=== PATIENT | female | born 2000 | race African-American/Black ===

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

== ENCOUNTER 2024-07-03 06:13 | Inpatient (IN) ==
--- NOTE | 2024-06-26 12:34 | Anesthesiology Consultation ---
Date of Service June 26, 2024 Assessment & Plan (1) Encounter for pre-operative examination: - cardiology office visit 03/19/24 [facility]: "...telemedicine...hypertension and risk evaluation during ...feels well and progressing as expected...pre- eclampsia is not present and BPs have been in normotensive range...would recommend getting updated echocardiogram...if BP rises to > 140 mmHg would consider re-introduction of BP therapy w/ labetalol..." - Per youth care worker on 06/26/24: No known infectious disease contacts, current infectious disease symptoms in past 10 days or COVID positive test result in the past 30 days. Chart Review Chart Review: entry level buyer initiated History Surgery Operation Date: 07/03/24 08:00 Proposed Procedures p Section in LD - Nohelia Jean Baptiste MD Height/Weight Height: 5 ft 8.5 in Weight: 131.088 kg Allergies Allergy/AdvReac Type Severity Reaction Status Date / Time No Known Allergies Allergy Mild Verified 06/26/24 11:11 Medications Home Medications Medication Instructions Recorded Confirmed Last Taken albuterol sulfate 90 mcg/actuation 1 inh inhalation QID PRN sob 06/26/24 06/26/24 Unknown aerosol inhaler vits no.130-ferrous fum 1 tab PO DAILY 06/26/24 06/26/24 Unknown 27 mg iron-folic acid 800 mcg tablet ( Vitamin) Past Medical History Medical History (Updated 06/26/24 @ 12:26 by Catalina Mejias PA-C) Asthma well controlled, rarely uses albuterol History of hypertension as a teen - no current issues, monitors with PCP. hx of taking labetalol (stopped due to ) no current blood pressure medications. follows [facility] Hx of syncope treated at [facility] Emergency Room in 12/2023 d/t syncope - pt thinks it was dehydration, unsure of details. possibly related to (unknown she was until sometime in December or January) - no recent issues with syncope. Past Family History Family History Other No family history of adverse response to anesthesia Past Surgical History Surgical History S/P ACL repair (2019) right Social History Smoking Status: Former smoker Do You Dip or Chew Tobacco: No Smoking End Date: 12/2023 Hx Alcohol Use: No Hx Substance Use: No substance use type: does not use Testing Electrocardiogram Date: 12/09/23 NSR with sinus arrhythmia, rate 84 bpm Chest X-Ray Date: 01/28/24 *1 view* No acute cardiopulmonary findings. Echocardiogram Date: 05/22/24 EF 60-64% Moderate cLVH Normal LV wall motion Mild mitral regurgitation Mild tricuspid regurgitation
[~2024-07-03 06:13] MED LIST: SODIUM CHLORIDE 0.9% 1,000 ML IV SCH
[2024-07-03] MEDS: ACETAMINOPHEN 500 MG TAB PO SCH (06:48)
[2024-07-03] MEDS: LACTATED RINGER'S 1,000 ML IV SCH ×2 (06:48→11:59)
[2024-07-03 07:03] LABS: Hematocrit (blood only) 35.6 % (37.0-47.0); Hemoglobin 12.3 g/dl (12.0-16.0); Mean Corpuscular Hemoglobin 29.4 pg (25.0-34.0); Mean Corpuscular Hgb Conc 34.6 g/dL (32.0-36.0); Mean Platelet Volume 9.9 fL (9.4-12.4); Platelet Count 219 K/uL (130-400); RDW Coefficient of Variation 13.5 % (11.5-14.5); RDW Standard Deviation 42.4 fL (36.4-46.3); Red Blood Count 4.19 M/uL (4.20-5.40); White Blood Count 12.81 K/ul (4.8-10.8)
[2024-07-03 07:22] LABS: Amphetamines+Metham, Urine Neg (Neg); Barbiturates, Urine Neg (Neg); Benzodiazepine, Urine Neg (Neg); Cocaine, Urine Neg (Neg); Fentanyl, Urine Neg (Neg); MDMA (Ecstacy), Urine Neg (Neg); Marijuana, Urine Neg (Neg); Methadone, Urine Neg (Neg); Opiate, Urine Neg (Neg); Phencyclidine, Urine Neg (Neg)
[2024-07-03] MEDS ORDERED: MoRPHine SULFATE 2 MG/ML CARP IV PRN (07:51)
[2024-07-03] MEDS ORDERED: HYDROmorphone INJ 0.5 MG/0.5 ML SYR IV PRN (07:51)
[2024-07-03] MEDS ORDERED: MEPERIDINE HCL 25 MG/ML CARP/VIAL IV PRN (07:51)
[2024-07-03] MEDS ORDERED: MoRPHine SULFATE PF 1 MG/ML 10 ML AMP/VIAL INT SPINAL ONE (07:51)
[2024-07-03] MEDS ORDERED: NALOXONE HCL 0.08 MG in SYRINGE 1.8 ML IV PRN (07:51)
[2024-07-03] MEDS ORDERED: ONDANSETRON INJ 2 MG/ML 2 ML VIAL IV PRN (07:51)
[2024-07-03] MEDS ORDERED: NALOXONE HCL 1 MG in SODIUM CHLORIDE 0.9% 1,000 ML IV PRN (07:51)
[2024-07-03] MEDS ORDERED: oxyCODONE HCL IR 5 MG TAB (IMMEDIATE RELEASE) PO PRN (07:51)
[2024-07-03] MEDS ORDERED: ePHEDrine sulfate 50 MG/ML AMP IV PRN (07:51)
[2024-07-03] MEDS ORDERED: NALBUPHINE HCL INJ 10 MG/ML AMP IV PRN (07:51)
[2024-07-03] MEDS ORDERED: NALOXONE HCL 0.4 MG/1 ML VIAL/CARP IV PRN (07:51)
[2024-07-03] MEDS ORDERED: PROMETHAZINE 6.25 MG/50.25 ML BAG IV PRN (07:51)
[2024-07-03] MEDS: CITRIC ACID/SODIUM CITRATE 15 ML UDC PO SCH (07:55)
[2024-07-03] MEDS: ceFAZolin 3,000 MG/72.5 ML BAG IV SCH (07:57)
--- NOTE | 2024-07-03 07:57 | History & Physical Bridge Note ---
Date of Service July 03, 2024 History & Physical Bridge Note I have examined the patient, reviewed the History & Physical and in the interval since the performance of the History & Physical I have noted the following changes of clinical significance: no changes noted Bed side US: Breech Signed and informed consent for Primary Ceserean delivery
[2024-07-03] MEDS ORDERED: OXYTOCIN 10 UNITS/ML VIAL ONE (07:59)
[2024-07-03] MEDS ORDERED: ONDANSETRON INJ 2 MG/ML 2 ML VIAL ONE (07:59)
[2024-07-03] MEDS ORDERED: NO NARCOTICS OR SEDATIVES SCH (08:00)
[2024-07-03] MEDS ORDERED: DC INTRASPINAL MORPHINE SCH (08:00)
[2024-07-03] MEDS ORDERED: MoRPHine SULFATE PF 1 MG/ML 10 ML AMP/VIAL ONE (08:00)
[2024-07-03] MEDS ORDERED: CALCIUM CARBONATE 500 MG CHEWABLE TAB PO PRN (09:11)
[2024-07-03] MEDS ORDERED: PROMETHAZINE 12.5 MG/50.5 ML BAG IV PRN (09:11)
[2024-07-03] MEDS ORDERED: HYDROCORTISONE ACETATE 25 MG SUPP PR PRN (09:11)
[2024-07-03] MEDS ORDERED: DIPHTHER/TETAN/PERTUS Vaccine (Tdap, Adol/Adult) 0.5mL IM ONE (09:11)
[2024-07-03] MEDS ORDERED: SENNA 8.6 MG TAB PO PRN (09:11)
[2024-07-03] MEDS ORDERED: BENZOCAINE 20% SPRY 85 APPLN/85 GM CAN EXT PRN (09:11)
[2024-07-03] MEDS ORDERED: diphenhydrAMINE 50 MG/ML VIAL IV PRN (09:11)
[2024-07-03] MEDS ORDERED: MEASLES, MUMPS & RUBELLA VIRUS VACCINE (MMR) 0.5ML VIAL SQ ONE (09:11)
[2024-07-03] MEDS ORDERED: PHENYLEPHRINE HCL 25 MG/250 ML NSS IV ONE (09:13)
[2024-07-03] MEDS ORDERED: LACTATED RINGER'S 1,000 ML IV SCH (09:15)
--- NOTE | 2024-07-03 09:21 | Operative Report ---
Post Operative Report Pre & Post Diagnosis Operation Date: 07/03/24 08:00 Pre-Op Diagnosis: 1.Breech at term Post-Op Diagnosis: Same as pre operative. I identified the patient and participated in the time-out.: Yes Procedure Operation Date: 07/03/24 08:00 Actual Procedures p Section in [facility] on 07/03/24 @ 0832 - Nohelia Jean Baptiste MD Surgeon Nohelia Jean Baptiste MD [employer] LINDA Iyer Quantitative Blood Loss (QBL) 457 Findings Consistent with Post-Op Diagnosis Baby was a viable female infant delivered in footling breech presentation at 0 8:32 AM, Apgars 8/9, weight is 337 0 g. Maternal findings, normal uterus, fallopian tubes and ovaries. Specimens PLACENTA Drains Santamaria 175 ml Anesthesia Type Spinal Complications none Disposition Accompanied Patient To Recovery: Yes Indications Patient is a 23-year-old G1, P0 at 39 weeks and 4 days of gestation who was scheduled for primary for breech presentation at term. Bedside ultrasound was performed by myself before surgery and baby was found to be footling breech presentation. She understood the risks and benefits of C- section and signed an informed consent. Description of Procedure Patient was taken to operating room where a spinal anesthesia was given without difficulty. She was placed in dorsal supine position with a leftward tilt. She was prepared and draped in usual sterile fashion. A financial skin incision was made and carried through to the underlying layer of fascia with the Bovie. Fascia was incised in the midline and incision was extended laterally with the help of Terrazas scissors. Then the upper aspect of the fascial incision was grasped with 2 Abby clamps elevated the underlying rectus muscles were dissected off sharply with Terrazas scissors. Same thing was done on the lower incision. Then the muscles were in the midline, peritoneum was identified grasped with 2 pickups and entered sharply with Metzenbaum scissors. Peritoneal incision was extended superior and inferiorly with good visualization of the bladder. The bladder blade was inserted. Vesicouterine peritoneum was identified, grasped with pickups and entered sharply with Metzenbaum scissors, bladder flap was created digitally and bladder blade was reinserted. Uterus was incised in transverse fashion, incision was extended laterally , membranes were ruptured and clear fluid was obtained. Baby feet and legs were delivered followed by buttocks, body and arms in flexion position and then head without difficulty. Nuchal cordx1 reduced. Mouth and nose were suctioned there was dried on the field he was vigorously crying and moving. The cord was clamped times and cut at 1 minute delay and then the was handed off to the pediatric team. Then the placenta was delivered manually as intact and complete. Uterus was kept inside of pelvis and cleared of all clots and debris. Uterine incision was repaired with 0 Vicryl in a running locked fashion, second umbricating layer was placed with the same suture in running locked fashion. Excellent hemostasis achieved. Pelvis was irrigated with warm normal saline and suctioned. Incision was checked to be hemostatic again. Parietal peritoneum was reapproximated with 3-0 Vicryl in a running fashion and the muscles were reapproximated in the same suture in a running fashion. All of the fascia and rectus muscles were hemostatic. Rectus fascia was reapproximated with 0 Vicryl in continuous fashion. Subcuticular fat tissue was brought together with 2-0 Vicryl in a running fashion, skin was closed with 4-0 Monocryl in a subcuticular cuticular fashion. The mom and baby tolerated procedure well. Sponge needle instrument count was correct x3. No complications happened, I was present during whole procedure. She was given 3 gr of Cefazolin before surgery. My veterinarian assistant was needed for retraction, hemostasis and aid during delivery of infant I attest to the content of the Intraoperative Record and any orders documented therein. Any exceptions are noted below.
[2024-07-03] MEDS ORDERED: GELATIN SPONGE SZ 100 ONE (09:28)
[2024-07-03] MEDS: KETOROLAC 30 MG/ML VIAL IV SCH ×2 (09:45→16:17)
[2024-07-03] MEDS ORDERED: SODIUM CHLORIDE 0.9% 100 ML IV PRN (11:55)
[2024-07-03] MEDS ORDERED: Nursing to Pharmacy Communication SCH (12:15)
--- OUTSIDE RECORDS SUMMARY | 2024-07-03 12:30 | External Medical Summary | Summary of Care ---
Author Name Unknown Organization [facility] Address [address] [place] [address] Phone [phone] Care Team Providers Care Metalizer Name Role Phone Carly Gatica MD Primary Care Provid er Encounter Details Date Type Department Care Team (Late Contact Info) Description 06/28/2024 3:00 PM EDT Office Visit [facility] Care [facility] Nikky Mensah [address] [place] [address] [address] [place] [address] Britta Moore, DO [address] [place] [address] Obesity in , antepartum*; Ultrasound for screening for growth restriction; 38 weeks gestation of Allergies No known active allergiesdocumented as of this encounter (statuses as of 06/28/2024) Medications Proventil HFA 108 (90 Base) MCG/ACT Inhalation Aerosol SolutionIndicatio ns:Acute non-recurrent maxillary sinusitis Inhale 2 Puffs by mouth every 4 hours as needed for Wheezing. 18 g 3 4 Active Plus 27-1 MG Oral TabletIndications :Supervision of normal first , antepartum Take 1 Tablet by mouth in the morning. 100 Tablet 3 4 Active Blood Pressure CuffIndications:H istory of hypertension For monitoring blood pressure 1 Each 4 Active Breast Pump Use as directed 1 Each 5 Active documented as of this encounter (statuses as of 06/28/2024) Active Problems Problem Noted Date Diagnosed Date Carrier of group B Streptococcus 06/13/2024 Mild intermittent asthma with exacerbation 03/12 Assessment & Plan (03/12/2024 2:53 PM EST): CONSIDERATIONS: Asthma symptoms may improve, worsen or remain unchanged in severity in . Asthma is generally managed the same in as in the non- patient, as asthma-control medications are considered safe in . If asthma is well-controlled with medications prior to , it is recommended to continue the same medication regimen during . A patient should seek medical care immediately if an asthma flare does not respond to therapy. Mild and well-controlled moderate asthma can be associated with excellent maternal and outcomes. Severe and poorly controlled asthma may be associated with increased morbidity and mortality. Asthma management includes monitoring of lung function with pulmonary function testing (when indicated), avoidance of triggers (such as tobacco smoke, mold, dust mite exposure, animal dander and cockroaches), and a step-care approach to pharmacologic therapy based on the severity of the patient's asthma. RECOMMENDATIONS: Inhaled corticosteroids are the mainstay of therapy for all patients except those with intermittent asthma. If patients are routinely requiring rescue inhaler (such as albuterol, Ventolin, ProAir, Atrovent, or Proventil) use more than twice weekly, we recommend adding a low-dose inhaled corticosteroid. [Pulmicort (budesonide) is preferred to use in .] If patients are routinely requiring rescue inhaler use daily, we recommend adding a combined low-dose inhaled corticosteroid/long-acting beta-agonist [such as Advair (fluticasone/salmeterol) or Symbicort (budesonide/formoterol)] or a medium dose inhaled corticosteroid. Patient should discuss these treatment options with her primary OB provider or PCP. Typically, patients do not need stress dose steroids as long as they continue their usual dose perioperatively (or during labor) and do not have primary renal failure or other problems with the pituitary axis. Medications such as prostaglandin F2a (including Hemabate), ergonovine, and indomethacin (in patients who are aspirin allergic) should be used with caution. Patients with moderate or severe persistent asthma should have Maternal- Medicine ultrasound for anatomy at 19-20 weeks. surveillance with growth ultrasounds and non-stress tests should be considered starting at 32 weeks. Food insecurity 03/11/2024 Overview: Per [facility] Protocol High-risk 03/07/2024 Obesity in , antepartum 03/07/2024 Overview (03/07/2024): Class 2 obese: Pre-gravid BMI 35.28 Assessment & Plan (04/02/2024 11:26 AM EST): I reviewed the ultrasound with her. The anatomy that was visualized appears unremarkable and the overall estimated weight is consistent with the 25th percentile for the gestational age. The amniotic fluid volume is normal at 13 cm and the fetus is in the vertex presentation. Assessment & Plan (03/12/2024 2:52 PM EST): CONSIDERATIONS: Discussed obstetrical risks associated with class II obesity (pre- BMI of 35 to 39.9) Reviewed that the accuracy of ultrasound at diagnosing anomalies is significantly decreased for women with an increased BMI. RECOMMENDATIONS: Recommend restricting weight gain during to 11-20 pounds. Patient should be referred for a nutrition consult. Recommend evaluation for signs and symptoms (snoring, excessive daytime sleepiness witnessed apnea or unexplained hypoxia) of obstructive sleep apnea. If any of these are present, referral to Sleep Medicine specialist for further evaluation should be considered. Recommend performing gestational diabetes mellitus screen now (if not performed at first visit) and repeat again at 26-28 weeks if early screen is normal. Recommend Maternal- Medicine ultrasound for anatomy at 20 weeks and for growth every 4 weeks thereafter. For patients with Class 2 obesity, we recommend weekly surveillance starting at 37 weeks. History of hypertension 03/07/2024 Overview (03/07/2024): No on medication at [facility] Marijuana use during 03/07/2024 Overview (03/12/2024): Patient reports use of Marijuana. She is trying to discontinue use Assessment & Plan (03/12/2024 2:59 PM EST): CONSIDERATIONS: Chemicals found in marijuana, such as tetrahydrocannabinol (THC), are distributed to the brain and fat and cross the placenta. THC also appears in breast milk. In utero exposure is associated with short and long-term morbidity. A positive screen result is reported to [facility]. RECOMMENDATIONS: Abstain from marijuana use in and while ; avoid secondhand exposure. Discontinue use of marijuana for medicinal purposes in favor of an alternative therapy for which there are better -specific safety data. Suicidal thoughts 04/15/2022 Moderate episode of recurrent major depressive d isorder 07/05/2021 IRAJ (generalized anxiety disorder) 07/05/2021 Overview (03/12/2024): Patient currently stable in terms of her mood and denies any thoughts of self harm. Has support from her siblings. Assessment & Plan (03/12/2024 2:56 PM EST): CONSIDERATIONS: Untreated maternal anxiety and/or depression may be associated with an increased risk of multiple poor obstetrical outcomes including miscarriages, low weight, and delivery. Women with a history of anxiety or depression are at risk for recurrence both during and/or the period. Studies of first-trimester SSRI exposure do not demonstrate consistent data to support an increased risk for structural malformations. Anti-anxiety or depression medications have been associated with transient effects (withdrawal syndrome). RECOMMENDATIONS: Mental illness can and should be treated during when the benefits of treatment outweigh potential risks. Referral to behavioral health services as clinically indicated. Hypertension goal BP (blood pressure) < 140/90 0 11/23/2020 Hypertensive left ventricula r hypertrophy, without heart failure 11/23/2020 Overview (03/12/2024): Overview Patient with chronic hypertension in the context of morbid obesity. AT 18 she was diagnosed and had echocardiogram showing borederline LVH. Corky has since lost weight, and her BPs have become normal/mildy elevated without medications. No cardiac symptoms. No recent cardiology evaluation. Last echo 08/19/2020 Interpretation Summary There is borderline concentric left ventricular hypertrophy. The left ventricular systolic function is qualitatively normal . There is not a coarctation of the aorta. Not currently on HTN meds at [facility] Latest EKG Assessment & Plan (05/03/2024 3:26 PM EST): Echocardiogram ordered 03/13 but not yet completed. Appears to be scheduled 05/09/24. Assessment & Plan (03/12/2024 1:55 PM EST): Discussion Patient was counseled on the diagnosis of hypertension and the chronic health effects of untreated disease. She was encouraged to maintain the lifestyle changes that have led to her weight loss and improvement of her BP and overall health The risk of from the borderline LVH is not expected to be much higher than baseline risk for any patient. She has a CARPREG II risk score of zero as she has no prior cardiac events and has required no cardiac interventions. The risk of a primary cardiac event is 5% in this scenario. Recommendations We recommend an updated evaluation by cardiology team for specific recommendations and a new echocardiogram Baseline Preeclampsia labs and BNP levels Patient was offered low dose Aspirin given her risk factors of obesity, chronic hypertension and primiparity. Cardiac Seek immediate medical attention in the event of cardiac symptomatology, such as worsening respiratory distress on exertion, chest pain, palpitations, or syncope. Heart Healthy diet with <<2,000 mg of sodium intake daily. Adequate hydration. Maintain previous level of physical activity; avoid lifting weights >10 lbs. Avoid stimulants (tobacco and nicotine vaping products, excessive caffeine, cocaine, methamphetamine). Optimize hemoglobin; encourage heme iron intake through lean red meat consumption as well as oral ferrous sulfate therapy; consider Venofer infusions. Maternal Medicine MFM anatomy ultrasound at 20 weeks. Serial MFM growth scans as indicated BMI 45.0-49.9, adult 09/15/2020 Overview: Per Obesity protocol Morbid obesity due to excess calories 08/07/2006 Overview (06/25/2009): Per Obesity Taxonomy Assessment & Plan (06/07/2024 8:53 AM EST): I reviewed the US. The EFW is c/w the 47%tile for the gestational age and the anatomy that was visualized appears unremarkable, with the exception of the cystic structure in the midline. It measures 1.1 cm and is smooth walled. There is no blood flow. This has been seen on prior ultrasounds. The BETSEY is normal at 17 cm and the fetus is in the breech presentation. Estimated Date of Delivery Comme nts Yes 07/08/2024 Based on last me nstrual period of 10/02/2023 documented as of this encounter (statuses as of 06/28/2024) Resolved Problems Problem Noted Date Diagnosed Date Resolved Date 23 weeks gestation of 03/11/2024 04/24/2024 Overview (03/12/2024): Late to care Recurrent major depressive d isorder, in full remission 11/23/2020 07/05/2021 Abnormal weight gain 2010 018 Asthma with severity to be determined 09/24/2009 04/23/2015 Overview (07/13/2015): Per Asthma Taxonomy ICD-10 update of inactive term Body mass index (BMI) of 120 % to less than 140% of 95th percentile for age in pediatric patient 06/25/2009 07/05/2021 Overview (01/02/2024): Per Obesity Taxonomy ICD-10 update of inactive term Asthma, allergic 04/16/2009 09/24/2009 documented as of this encounter (statuses as of 06/28/2024) Immunizations Name Administration Dates Next Due DTaP Dipth/Tet/Acell Pertussis (Infanrix), Peds 07/07/2008 H1N1 2009 Influenza, IM 04/16/2009 HPV Vaccine, 9-Valent 11/30/2015,04/23/2015 Hepatitis A, Ped/Adol., 18 year and below, 2-Dos e 12/24/2012 IPV - Polio Virus Vaccine (Inact) 07/07/2008 MMR - Measles/Mumps/Rubella Vaccine 07/07/2008 Meningococcal Conjugate Vaccine (Menactra/Menveo ) 04/23/2015 Meningococcal MCV4O Conjugate Vaccine (Menveo) 1 05/13/2019 Seasonal Influenza Vac., MDV, IM, 0.5 mL (Fluzon e) 12/24/2012,04/16/2009 Seasonal Influenza, PF, 6 M & above, IM , (FluLaval or Fluzone) 04/15/2022,03/12/2020 Seasonal Influenza, Quad, Nasal (Flumist) 2015 Seasonal Influenza, Trivalent, (IIV3), PF, (Fluz one) 03/07/2024 TDAP (age 10 and older)(Boostrix) 04/23/2015 TDAP, Age 7 and older, IM (Adacel) 04/24/2024 documented as of this encounter Social History Tobacco Use Types Packs/Day Years Used Date Smoking Tobacco: Never Smokeless Tobacco: Never Alcohol Use Standard Drinks/Week Comments No 0 (1 standard drink = 0.6 oz pur e alcohol) PHQ-2 Answer Date Recorded PHQ Adult Total Score 18 07/15/2022 Hunger Vital Sign Answer Date Recorded Within the past 12 months, y ou worried that your food would run out before you got the money to buy more. Often true Within the past 12 months, t he food you bought just didn't last and you didn't have money to get more. Sometimes true Rodeo Depression Scale Answer Date Recorded Rodeo Depression Scale Total 12 06/11/2024 The thought of harming myself has occurred to me . Never 06/11/2024 Childcare Answer Date Recorded Do you feel overwhelmed with taking care of a child, family member or friend? No 02/20/2024 Does your family need help f inding childcare? (Household - for ages 0-17 years) Not on file 02/20/2024 Clothing Answer Date Recorded Have you been unable to get clothing when it was really needed? No 02/20/2024 Is your family able to get c lothes or diapers when needed? (Household - for ages 0-17 years) Not on file 02/20/2024 Personal Safety Answer Date Recorded Do you feel unsafe or have concerns for your saf ety? No 02/20/2024 Do you have concerns for you r family's safety? (Household - for ages 0-17 years) Not on file 02/20/2024 Utilities Answer Date Recorded Do you have trouble paying y our heating, water, or electric bill? No 02/20/2024 Is your family able to pay t he heat, water, or electric bill? (Household - for ages 0-17 years) Not on file 02/20/2024 Does your family have access to good internet? (Household - for ages 0-17 years) Not on file 02/20/2024 Employment Status Answer Date Recorded Are you unemployed or without regular income? No 02/20/2024 Does the household have a re gular source of income? (Household - for ages 0-17 years) Not on file 02/20/2024 Social Connections Answer Date Recorded How often do you feel lonely or isolated from th ose around you? Always 02/20/2024 Financial Resource Strain Answer Date R ecorded Do you have any trouble payi ng for your medications, or do you think you might in the future? No 02/20/2024 Does your family have troubl e paying for medicine? (Household - for ages 0-17 years) Not on file 02/20/2024 Transportation Needs Answer Date Record ed Do you have trouble getting a ride to medical visits or work? (Adult - for ages 18 years and over) Not on file 02/20/2024 Does your family have a hard time getting a ride to doctors visits? (Household - for ages 0-17 years) Not on file 02/20/2024 Has lack of transportation k ept you from medical appointments, meetings, work, or from getting things needed for daily living? Check all that apply. Yes, it has kept me from medical appointments 02/20/2024 Do you (or your family) have trouble finding or paying for a ride (transportation)? (Household - for ages 0-17 years) Not on file 02/20/2024 Housing Stability Answer Date Recorded Do you currently live in a s helter or have no steady place to sleep at night? Yes 02/20/2024 Do you think you are at risk of becoming homeless? (Adult - for ages 18 years and over) Not on file 02/20/2024 Does your family worry about paying for your home or becoming homeless? (Household - for ages 0-17 years) Not on file 1 04/21/2023 Are you homeless or worried that you might be in the future? Yes 02/20/2024 Are you (or your family) geovanna eless or worried that you might be in the future? (Household - for ages 0-17 years) Not on file Food Insecurity Answer Date Recorded Do you need food for this week? Yes 02/20/2024 Are you able to get enough f ood for your family? (Household - for ages 0-17 years) Not on file 02/20/2024 Does your family need food t his week? (Household - for ages 0-17 years) Not on file 02/20/2024 Do you always have enough fo od for your family? (Household - for ages 0-17 years) Not on file 02/20/2024 Food Insecurity Answer Date Recorded Within the past 12 months, y ou worried that your food would run out before you got the money to buy more. Often true Within the past 12 months, t he food you bought just didn't last and you didn't have money to get more. Sometimes true Do you need food for this week? 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 Normal growth with EFW 3502 g at 63%ile. Normal BETSEY at 14.5 cm. Breech presentation. I reviewed the ultrasound images. Gerard was given the opportunity to meet with me if she had anyquestions. Please refer to the ultrasound report for additional details about today's ultrasound examination. RECOMMENDATIONS: Follow up with MFM for ultrasound as clinically indicated. See formal MFM consultation note. Thank you for allowing us to participate in the care of this patient. Please call with any questions. Britta Moore DO 06/28/2024 3:46 PM documented in this encounter Plan of Treatment Upcoming Encounters Date Type Department Care Team (Late st Contact Info) Description 07/12/2024 11:00 AM EDT Office Visit Gynecology/Obstetrics [facility] [address] [place] [address] Poornima Freeman CRNP [address] [place] [phone] 08/19/2024 6:00 PM EDT Office Visit [facility]una [facility] [address] [phone] Carly Gatica MD [address] [place] [address] Health Maintenance Due Date Last Done Comments Meningitis B Vaccine (Bexsero/Trumemba) (1 of 2 - Standard) 2018 Pneumococcal Vaccine: Pediat rics (0 to 5 Years) and At-Risk Patients (6 to 18 Years and 19+ Years) (1 of 2 - PCV) 2021 Depression Monitoring 07/16/2023 07/15/2022 COVID-19 Vaccine ( - 2023-2 5 season) 2023 Yearly Wellness Visit 10/29/2024 10/30/2023 , 07/05/2021, 03/12/2020, Additional history exists GFR 03/07/2025 03/07/2024, 08/02, 04/15/2022, Additional history exists Gonorrhea / Chlamydia Screen 03/07/202508/2023, 10/30/2023, 12/21/2020, Additional history exists Pap Smear 10/29/2026 10/30/2023 DTap/Tdap Vaccines (7 - Td o r Tdap) 04/24/2034 04/24/2024, 04/23/2015, 07/07/2008, Additional history exists Hepatitis B Vaccine Completed 03/06/2003, 2002, 2002 HPV (Gardasil) Vaccine Completed 11/30/2015, 2015 Lipid Panel Completed 03/13/2018, 10/09/2014 MENINGOCOCCAL (MENACTRA/MENVEO) Completed 03/12/2020, 03/12/2020, 04/23/2015 Albumin/Creatinine Ratio Discontinued 024, 04/15/2022, 07/05/2021 Influenza Vaccine (FLU shot) Completed 08/2023, 04/15/2022, 03/12/2020, Additional history exists documented as of this encounter Goals Goal Patient Goal Type Associated Problems Recent Progress Patient-Stated? Author Reminders Care Plan OB Reminders No Mychart, Provider documented as of this encounter Medical Devices Implanted Type Area Still Operator Device Identifier Shelf Expiration Date Model / Serial / Lot Btb Tightrope - [id number] Implanted:Qty: 1 on 11/12/2019 by Christopher Brennan, DO at [facility] Right: Knee [employer] 01/01/2024 [id number] / / [id number] Tightrope Abs Implant, Open - [id number] Implanted:Qty: 1 on 11/12/2019 by Christopher Brennan, DO at OR [facility] Right: Knee [employer] 01/01/2024 [id number]-[id number] / / [id number] 7.5-10.5mm Graftlink Allograft, Frozen Graft Implanted:Qty: 1 on 11/12/2019 by Christopher Brennan DO at OR [facility] Right: Knee [employer] [id number] 09/01/2022 [facility] / [id number] / LOT NA Tightrope Abs Button Rnd 11mm - [id number] Implanted:Qty: 1 on 11/12/2019 by Christopher Brennan, at OR [facility] Right: Knee [employer] 08/31/2024 [id number] / / [id number] documented as of this encounter Visit Diagnoses Diagnosis Obesity in , antepartum- Primary Obesity complicating , childbirth, or the puerperium, antepartum condition or complication Marijuana use during Hypertensive left ventricular hypertrophy, without heart failure Mild intermittent asthma with exacerbation Unspecified asthma, with exacerbation IRAJ (generalized anxiety disorder) Generalized anxiety disorder 23 weeks gestation of state, incidental Morbid obesity due to excess calories (HCC)- Primary BMI 45.0-49.9, adult (HCC) Body Mass Index 45.0-49.9, adult Obesity in , antepartum Obesity complicating , childbirth, or the puerperium, antepartum condition or complication Obesity in , antepartum- Primary Obesity complicating , childbirth, or the puerperium, antepartum condition or complication Hypertensive left ventricular hypertrophy, without heart failure Ultrasound for screening for growth restriction screening for growth retardation using ultrasonics 30 weeks gestation of state, incidental Morbid obesity due to excess calories (HCC)- Primary Hypertensive left ventricular hypertrophy, without heart failure Hypertension goal BP (blood pressure) < 140/90 Unspecified essential hypertension Obesity in , antepartum Obesity complicating , childbirth, or the puerperium, antepartum condition or complication Obesity in , antepartum- Primary Obesity complicating , childbirth, or the puerperium, antepartum condition or complication Ultrasound for screening for growth restriction screening for growth retardation using ultrasonics 38 weeks gestation of state, incidental documented in this encounter Additional Health Concerns Active Problems Noted Date Diagnosed Date OB Reminders 03/18/2024 documented as of this encounter Care Teams Metalizer Relationship Specialty Start Date End Date Carly Gatica MD PCP - General Family Medicine 11/23/20 documented as of this encounter
--- OUTSIDE RECORDS SUMMARY | 2024-07-03 12:30 | External Medical Summary | Summary of Care ---
Author Name Unknown Organization [facility] Address [address] [address] Phone [phone] Care Team Providers Care Mirror Department Supervisor Name Role Phone Carly Gatica MD Primary Care Provid er Reason for Visit * Reason Comments Pre-Op Testing Return Visit Non Stress Test Encounter Details Date Type Department Care Team (Late st Contact Info) Description 06/25/2024 2:45 PM EDT Office Visit Gynecology/Obstetric s Samra Ayala [address] [place] [address] Sherine Davison MD [address] [place] [address] Lyn Ayala Stress Tests Kim [address] [place] [address] 38 weeks gestation of *; High-risk in third trimester; Hypertensive left ventricular hypertrophy, without heart failure; History of hypertension; Obesity in , antepartum; Carrier of group B Streptococcus; Breech presentation, single or unspecified fetus; IRAJ (generalized anxiety disorder); Marijuana use during ; Mild intermittent asthma with exacerbation Allergies No known active allergiesdocumented as of this encounter (statuses as of 06/25/2024) Medications Proventil HFA 108 (90 Base) MCG/ACT [...] as of this encounter (statuses as of 06/25/2024) Active Problems Problem Noted Date Diagnosed Date [...] 32 weeks. Food insecurity 03/11/2024 Overview: Per [facility] Protocol High-risk 03/07/2024 Obesity in , [...] as of this encounter (statuses as of 06/25/2024) Resolved Problems Problem Noted Date Diagnosed Date [...] as of this encounter (statuses as of 06/25/2024) Immunizations Name Administration Dates Next Due DTaP [...] have money to get more. Sometimes true [place] Depression Scale Answer Date Recorded [place] Depression Scale Total 12 06/11/2024 The thought [...] No 02/20/2024 Does the household have a [facility] source [facility] income? (Household - for ages [...] on file documented as of this encounter Last Filed Vital Signs Vital Sign Reading Time Taken Comments Blood Pressure 120/66 06/25/2024 1:39 PM EDT Pulse - - Temperature 36.5 °C (97.7 °F) 06/25/2024 1:39 PM ED T Respiratory Rate - - Oxygen Saturation - - Inhaled Oxygen Concentration - - Weight 130.2 kg (287 lb) 06/25/2024 1:39 PM EDT Height 172.7 cm (5' 8") 06/25/2024 1:39 PM EDT Body Mass Index 43.64 06/25/2024 1:39 PM EDT documented in this encounter Progress Notes * Sherine Davison MD - 06/25/2024 2:45 PM EDT H&P - OB [facility] OUTPATIENT SURGERY [address] [address] Name: Gerard Dunbar Location: Room/bed info not found Date: 06/25/2024 Time: 2:22 PM Date of : 2000 HPI: Gerard Dunbar is a 23 year old here for preoperative appointment. She is scheduled for primary on July 03, [facility] with Dr Stewart for breech presentation. Sheis 38w1d EGA by LMP and 17 week ultrasound which suggests Estimated Date of Delivery: 07/08/24. Gestational Age (weeks/days): 38w1d Patient's last menstrual period was 10/02/2023. Patient is . Estimated Date of Delivery: 07/08/24 She denies: leakage of fluid, vaginal bleeding, any change in movement, headache, visual changes, and contractions Patient Active Problem List Diagnosis Morbid obesity due to excess calories (HCC) BMI 45.0-49.9, adult ([facility]) Hypertension goal BP (blood pressure) < 140/90 Hypertensive left ventricular hypertrophy, without heart failure Moderate episode of recurrent major depressive disorder (HCC) IRAJ (generalized anxiety disorder) Suicidal thoughts High-risk Obesity in , antepartum History of hypertension Marijuana use during Mild intermittent asthma with exacerbation Food insecurity Carrier of group B Streptococcus PAST MEDICAL HISTORY: Past Medical History: Diagnosis Date Asthma, severity to be determined Hypertensive left ventricular hypertrophy, without heart failure 11/23/2020 Overview Patient with chronic hypertension in the context of morbid obesity. AT 18 she was diagnosed and had echocardiogram showing borederline LVH. Corky has since lost weight, and her BPs have become normal/mildy elevated without medications. No cardiac symptoms. No recent cardiology evaluation.Last echo 08/19/2020 Interpretation Summary There is borderline concentric left ventricula Obesity, BMI not known Varicella without complication 08/02/2003 PAST SURGICAL HISTORY: Past Surgical History: Procedure Laterality Date CREATE EARDRUM OPENING,LOCAL ANESTH 2003 Tympanostomy tubes KNEE ARTHROSCOPY/MENISCECTOMY Right 11/12/2019 ARTHROSCOPY KNEE MEDIAL OR LATERAL MENISCECTOMY performed by Christopher Brennan DO at OR [facility] KNEE ARTHROSCOPY/MENISCUS REPAIR Right 11/12/2019 ARTHROSCOPY KNEE WITH MENISCUS REPAIR performed by Christopher Brennan DO at OR [facility] KNEE ARTHROSCOPY/REPAIR LIGAMENT Right 11/12/2019 ARTHROSCOPICALLY AIDED ACL RECONSTRUCTION performed by Christopher Brennan DO at OR [facility] FAMILY HISTORY: Family History Problem Relation Name Age of Onset Obesity Mother Obesity Father Hypertension Father Endocrine Disorder Father hypercholesterolemia Hypertension Grandfather (Paternal) Blood Disorder Aunt (Unspecified) sickle cell anemia Blood Disorder Other sickle cell anemia Hypertension Uncle (Unspecified) SOCIAL HISTORY: Social History Tobacco Use Smoking status: Never Smokeless tobacco: Never Substance Use Topics Alcohol use: No Drug use: No CURRENT HOSPITAL MEDS: Note that completed medications (per the MAR) continue to display for 24 hours. Ordered medications to be given in the future also display. @CMEDIP@ ALLERGIES: Patient has no known allergies. Labs: HGB (g/dL) Date Value 04/10/2024 12.3 HCT (%) Date Value 04/10/2024 38.4 PLT (K/uL) Date Value 04/10/2024 241 ABO (no units) Date Value 03/07/2024 O Rh (no units) Date Value 03/07/2024 Positive Rubella IgG Antibody (no units) Date Value 03/07/2024 Positive (A) HIV Antigen & Antibody (no units) Date Value 03/07/2024 Negative Hepatitis B Surface Antigen (no units) Date Value 03/07/2024 Negative Hepatitis C Antibody (no units) Date Value 03/07/2024 Negative Syphilis Screen Interpretation (no units) Date Value 04/10/2024 Nonreactive 50-g Gestational Glucose, 1 Hour (mg/dL) Date Value 04/10/2024 91 Chlamydia Trachomatis Result (no units) Date Value 03/07/2024 Negative Neisseria Gonorrhoeae Result (no units) Date Value 03/07/2024 Negative Group B Strep PCR Result (no units) Date Value 06/11/2024 Positive (A) PHYSICAL EXAM: BP 120/66 | Ht 1.727 m (5' 8") | Wt 130.2 kg (287 lb) | LMP 10/02/2023 | BMI 43.64 kg/m² | BSA 2.5m² Body mass index is 43.64 kg/m². Neuro: A&O X3. Lungs: No resp distress, CTA Heart: Regular rate & rhythm Abdomen: Gravid, non-tender Extremities: No deep calf tenderness bilaterally. No pathologic edema. ASSESSMENT assessment with Non-stress test completed on 06/25/2024 at 38 1/7 gestation for indication of obesity heart baseline: 130-135 bpm Variability: Moderate Accelerations: present Decelerations: absent Contractions: irritable, patient not feeling them NST strip reviewed, interpreted, and approved by OB provider, Cristiano davison. NST strip stored in clinic storage file NST start time: 1941 NST stop time: 2007 Assessment: 23 year old at 38w1d by LMP and 17 week ultrasound with Estimated Date of Delivery: 07/08/24 Breech presentation Class 2 obesity History of hypertension and left ventricular hypertrophy GBS positive Plan: In for as scheduled on July 03, 2024, unless sooner if patient goes into labor Will confirm if breech presentation on labor and delivery Consents to be signed by the surgeon performing the surgery Labor and preeclampsia warnings Sherine Davison MD, Ph.D., FACOG [address] [facility] [place] [address] [address] [facility] [place] [address] 06/25/2024 2:31 PM This chart was completed in part utilizing [email or web address] Speech Voice Recognition Software. Grammatical errors, random word insertions, prounoun errors, and incomplete sentences are an occasional consequence of this system due to software limitations, ambient noise, and hardware issues. Any formal questions or concerns about the content, text, or information contained within the body of this dictation should be directly addressed to the provider for clarification. documented in this encounter Nursing Notes * Kim Luu LPN - 06/25/2024 1:39 PM EDT 38W1D NST, pre-op, MERCEDES documented in this encounter Plan of Treatment Upcoming Encounters Date Type Department Care Team (Late st Contact Info) Description 06/28/2024 3:00 PM EDT Office Visit Roll Handler OB Maternal Medicine [facility] Nikky Mensah [address] [place] [address] Dr [address] [place] [address] Britta Moore, DO [address] [place] [address] 06/28/2024 3:00 PM EDT Imaging Maternal Medicine [facility] Nikky Mensah [address] [place] [address] Dr [address] [place] [address] 07/12/2024 11:00 AM EDT Office Visit Gynecology/Obstetrics [facility] [address] [place] [address] Poornima Freeman CRNP [address] [place] [address] 08/19/2024 6:00 PM EDT Office Visit [facility] Aruna Rodarte [address] [phone] Carly Gatica MD [address] [facility] [facility] [place] [address] Health Maintenance Due Date Last Done Comments Meningitis B Vaccine (Bexsero/Trumemba) (1 of 2 - Standard) 2018 Pneumococcal Vaccine: Pediat rics (0 to 5 Years) and At-Risk Patients (6 to 18 Years and 19+ Years) (1 of 2 - PCV) 2021 Depression Monitoring 07/16/2023 07/15/2022 COVID-19 Vaccine (1 - 2023-2 5 season) 2023 Yearly Wellness [...] this encounter Medical Devices Implanted Type Area Facility Designer Device Identifier Shelf Expiration Date Model / Serial / Lot Btb Tightrope - [id number] Implanted:Qty: 1 on 11/12/2019 by Christopher Brennan DO at OR [facility] Right: Knee [employer] 01/01/2024 AR-1588BTB / / [id number] Tightrope Abs Implant, Open - [id number] Implanted:Qty: 1 on 11/12/2019 by Christopher Brennan DO at OR [facility] Right: Knee [employer] 01/01/2024 AR-1588TN-1 / / [id number] 7.5-10.5mm Graftlink Allograft, Frozen Graft Implanted:Qty: 1 on 11/12/2019 by Christopher Brennan DO at OR [facility] Right: Knee [employer] [id number] 09/01/2022 [employer] / [id number] / LOT NA Tightrope Abs Button Rnd 11mm - [id number] Implanted:Qty: 1 on 11/12/2019 by Christopher Brennan DO at OR [facility] Right: Knee [employer] 08/31/2024 AR-1588TB-3 / / [id number] documented as of this encounter Visit Diagnoses [...] or the puerperium, antepartum condition or complication 38 weeks gestation of - Primary state, incidental High-risk in third trimester Hypertensive left ventricular hypertrophy, without heart failure History of hypertension Personal history of other diseases of circulatory system Obesity in , antepartum Obesity complicating , childbirth, or the puerperium, antepartum condition or complication Carrier of group B Streptococcus Carrier or suspected carrier of Group B streptococcus Breech presentation, single or unspecified fetus IRAJ (generalized anxiety disorder) Generalized anxiety disorder Marijuana use during Mild intermittent asthma with exacerbation Unspecified asthma, with exacerbation documented in this encounter Additional Health Concerns Active Problems Noted Date Diagnosed Date OB Reminders 03/18/2024 documented as of this encounter Care Teams Mirror Department Supervisor Relationship Specialty Start Date End Date Carly Gatica MD PCP - General Family Medicine 11/23/20 documented as of this encounter
--- OUTSIDE RECORDS SUMMARY | 2024-07-03 12:30 | External Medical Summary | Summary of Care ---
Author Name Unknown Organization [facility] Address [address] [place] [address] Phone [phone] Care Team Providers Care Sterilizer Machine Operator Name Role Phone Carly Gatica MD Primary Care Provid er Reason for Visit * Reason Onset Date Comments Aviation Electrician Documentation 06/28/2024 Encounter Details Date Type Department Care Team (Late st Contact Info) Description 06/28/2024 Telephone Mammography Technologist Obstetrics Maternal Medicine, [place] [address] [place] [address] Genet Mata, HANDS ASSEMBLER [address] [place] [address] Aviation Electrician Documentation Allergies No known active allergiesdocumented as of [...] 32 weeks. Food insecurity 03/11/2024 Overview: Per [facility] Protocol High-risk 03/07/2024 Obesity in , [...] have money to get more. Sometimes true [place] Depression Scale Answer Date Recorded [place] Depression Scale Total 12 06/11/2024 The thought [...] 02/20/2024 Does the household have a re lar source of income? (Household - for ages [...] on file documented as of this encounter Miscellaneous Notes * Telephone Encounter - Genet Mata MSW - 06/28/2024 9:26 AM EDT Telephone call received from pt Gerard. Pt requesting that SW contact [employer] to request for W2to be sent to pt's new address. SW informed pt that this is something that pt will need to do herself. Pt reports there is nothing else she needs assistance with as this time. Aware how to reach SW if anything else arises. Tasks Completed: Care Coordination documented in this encounter Plan of Treatment Upcoming Encounters Date Type Department Care Team (Late st Contact Info) Description 06/28/2024 3:00 PM EDT Office Visit Mammography Technologist OB Maternal Medicine [facility] Nikky Mensah [address] [place] [address] [address] [address] Teresa Brittajose luis Starr, DO [address] [facility] [address] 06/28/2024 3:00 PM EDT Imaging Maternal Medicine [facility] Nikky Mensah [address] [place] [address] [address] [address] 07/12/2024 11:00 AM EDT Office Visit Gynecology/Obstetrics [facility] [address] [place] [address] Poornima Freeman CRNP [address] [place] [address] 08/19/2024 6:00 PM EDT Office Visit [facility] [address] [place] [phone] Carly Gatica MD [address] [place] [address] Health Maintenance Due Date Last Done Comments Meningitis B Vaccine (Bexsero/Trumemba) (1 of 2 - Standard) 2018 Pneumococcal Vaccine: Pediat rics (0 to 5 Years) and At-Risk Patients (6 to 18 Years and 19+ Years) (1 of 2 - PCV) 2021 Depression Monitoring 07/16/2023 07/15/2022 COVID-19 Vaccine (2023-2 5 season) 2023 Yearly Wellness Visit 10/29/2024 [...] this encounter Medical Devices Implanted Type Area Grout Machine Tender Device Identifier Shelf Expiration Date Model / Serial / Lot Btb Tightrope - [id number] Implanted:Qty: 1 on 11/12/2019 by Christopher Brennan DO at OR [facility] Right: Knee [employer] 01/01/2024 AR-1588BTB / / [id number] Tightrope Abs Implant, Open - [id number] Implanted:Qty: 1 on 11/12/2019 by Christopher Brennan DO at OR [facility] Right: Knee [employer] 01/01/2024 AR-1588TN-1 / / [id number] 7.5-10.5mm Graftlink Allograft, Frozen Graft Implanted:Qty: 1 on 11/12/2019 by Christopher Brennan DO at OR [facility] Right: Knee [employer] [id number] 09/01/2022 L / [id number] / LOT NA Tightrope Abs Button Rnd 11mm - [id number] Implanted:Qty: 1 on 11/12/2019 by Christopher Brennan DO at OR [facility] Right: Knee [employer] 08/31/2024 AR-1588TB-3 / / [id number] documented as of this encounter Additional Health Concerns Active Problems Noted Date Diagnosed Date OB Reminders 03/18/2024 documented as of this encounter Care Teams Sterilizer Machine Operator Relationship Specialty Start Date End Date Carly Gatica MD PCP - General Family Medicine 11/23/20 documented as of this encounter
--- OUTSIDE RECORDS SUMMARY | 2024-07-03 12:31 | External Medical Summary | Summary of Care ---
Author Name Unknown Organization [facility] Address [address] [address] Phone [phone] Care Team Providers Care Head Start Director Name Role Phone Carly Gatica MD Primary Care Provid er Reason for Visit * Reason Comments Non Stress Test Encounter Details Date Type Department Care Team (Late st Contact Info) Description 06/17/2024 1:00 PM EDT Office Visit Gynecology/Obstetri riog Ayala [address] [place] [address] Faith Flood CRNP [address] [place] [address] Jamie Non Stress Tests Kim [address] [place] [address] High-risk in third trimester*; Hypertensive left ventricular hypertrophy, without heart failure; IRAJ (generalized anxiety disorder); Obesity in , antepartum; History of hypertension; Marijuana use during ; Mild intermittent asthma with exacerbation; Carrier of group B Streptococcus Allergies No known active allergiesdocumented as of this encounter (statuses as of 06/17/2024) Medications Proventil HFA 108 (90 Base) MCG/ACT [...] as of this encounter (statuses as of 06/17/2024) Active Problems Problem Noted Date Diagnosed Date [...] 32 weeks. Food insecurity 03/11/2024 Overview: Per [facility] Protocol High-risk 03/07/2024 Obesity in , [...] as of this encounter (statuses as of 06/17/2024) Resolved Problems Problem Noted Date Diagnosed Date [...] as of this encounter (statuses as of 06/17/2024) Immunizations Name Administration Dates Next Due DTaP Dipth/Tet/Acell Pertussis (Infanrix), Peds 07/07/2008,12/18/2003,03/06/2003,11/29,2002 H1N1 2009 Influenza, IM 04/16/2009 HIB PRP-T, 4 Dose, PF, IM (H iberix, ActHib) 12/18/2003,03/06/2003,2002,10/10 HPV Vaccine, 9-Valent 11/30/2015,04/23/2015 Hepatitis A, Ped/Adol., 18 y ear and below, 2-Dose 12/24/2012 Hepatitis B, 0-19 yrs 03/06/2003,2002,10/01 IPV - Polio Virus Vaccine (Inact) 2008,03/06/2003,2002,10/10 MMR - Measles/Mumps/Rubella Vaccine 07/07/2008,0 12/18/2003 Meningococcal Conjugate Vacc ine (Menactra/Menveo) 04/23/2015 Meningococcal MCV4O Conjugat e Vaccine (Menveo) 03/12/2020 Pneumococcal Conjugate Vacci ne, 7 Valent 03/06/2003,2002,2002 Seasonal Influenza Vac., MDV , IM, 0.5 mL (Fluzone) 12/24/2012,04/16/2009 Seasonal Influenza, PF, 6 M & above, IM , (FluLaval or Fluzone) 04/15/2022,03/12/2020 Seasonal Influenza, Quad, Na pe[place] (Flumist) 04/23/2015 Seasonal Influenza, Trivalen t, (IIV3), PF, (Fluzone) 03/07/2024,01/28/2005,03/06/2003 TDAP (age 10 and older)(Boostrix) 04/23/2015 TDAP, [...] have money to get more. Sometimes true [place] Depression Scale Answer Date Recorded [place] Depression Scale Total 12 06/11/2024 The thought [...] Sign Reading Time Taken Comments Blood Pressure 118/72 06/17/2024 12:30 PM EDT Pulse 78 06/17/2024 12:30 PM EDT Temperature - - Respiratory Rate - - Oxygen Saturation 96% 06/17/2024 12:30 PM EDT Inhaled Oxygen Concentration - - Weight 131.1 kg (289 lb) 06/17/2024 12:30 PM EDT Height - - Body Mass Index 43.94 05/28/2024 3:02 PM EST documented in this encounter Progress Notes * Faith Flood CRNP - 06/17/2024 12:30 PM EDT 37w0d + movement. Some BH ctx, nothing regular. No LOF, bleeding. Endorses some LE swelling when on her feet, recommended compression socks. She denies new KERN, vision changes, epigastric pain. While on NST, pt became diaphoretic and clammy. She admitted to have not yet eaten today. VSS. She improved quickly with food and juice. NST reactive. Return in 1 week. ASSESSMENT assessment with Non-stress Test completed on 06/17/2024 at 37 weeks gestation for indication of obesity heart baseline: 140 bpm Variability: Moderate Decelerations: absent Accelerations: present Contractions: Present irregular NST start time: 1125 (time on EFM not changed to DST) NST stop time: 1154 NST strip reviewed, interpreted, and approved by OB provider, KENNETH Weinstein . NST strip stored in clinic storage file documented in this encounter Plan of Treatment Upcoming Encounters Date Type Department Care Team (Late st Contact Info) Description 06/25/2024 2:45 PM EDT Office Visit Gynecology/Obstetrics Samra Ayala [address] [place] [address] Sherine Purdy MD [address] [place] [address] Lyn Ayala Stress Tests Kim [address] [place] [address] 06/28/2024 3:00 PM EDT Office Visit Automobile Inspector OB Maternal Medicine [facility] Nikky Mensah [address] [place] [address] [address] [place] [address] Britta Moore, DO [address] [place] [address] 06/28/2024 3:00 PM EDT Imaging Maternal Medicine [facility] Nikky Mensah [address] [place] [address] [address] [place] [address] 07/12/2024 11:00 AM EDT Office Visit Gynecology/Obstetrics Samra Ayala [address] [place] [address] Poornima Freeman CRNP [address] [place] [address] 08/19/2024 6:00 PM EDT Office Visit [facility] [address] [facility] [place] [phone] Carly Gatica MD [address] [facility] [place] [address] Health Maintenance Due Date Last Done Comments [...] 2002 HPV (Gardasil) Vaccine Completed 11/30/2015, 2015 MENINGOCOCCAL (MENACTRA/MENVEO) Completed 03/12/2020, 03/12/2020, 04/23/2015 Albumin/Creatinine Ratio Discontinued 024, 04/15/2022, 07/05/2021 Influenza Vaccine (FLU shot) Completed 08/2023, 04/15/2022, 03/12/2020, Additional history exists documented as of this encounter Goals Goal Patient Goal Type Associated Problems Recent Progress Patient-Stated? Author Reminders Care Plan OB Reminders No Mychart, Provider documented as of this encounter Medical Devices Implanted Type Area Photogrammetric Engineer Device Identifier Shelf Expiration Date Model / Serial / Lot Btb Tightrope - [id number] Implanted:Qty: 1 on 11/12/2019 by Christopher Brennan, DO at OR [facility] Right: Knee [employer] 01/01/2024 AR-1588BTB / / [id number] Tightrope Abs Implant, Open - [id number] Implanted:Qty: 1 on 11/12/2019 by Christopher Brennan DO at OR [facility] Right: Knee [employer] 01/01/2024 AR-1588TN-1 / / [id number] 7.5-10.5mm Graftlink Allograft, Frozen Graft Implanted:Qty: 1 on 11/12/2019 by Christopher Brennan DO at OR [facility] Right: Knee [employer] [id number] 09/01/2022 [facility] / [id number] 2 / LOT NA Tightrope Abs Button Rnd 11mm - [id number] Implanted:Qty: 1 on 11/12/2019 by Christopher Brennan DO at OR [facility] Right: Knee [employer] 08/31/2024 AR-1588TB-3 / / [id number] documented as of this encounter Visit Diagnoses [...] or the puerperium, antepartum condition or complication High-risk in third trimester- Primary Hypertensive left ventricular hypertrophy, without heart failure IRAJ (generalized anxiety disorder) Generalized anxiety disorder Obesity in , antepartum Obesity complicating , childbirth, or the puerperium, antepartum condition or complication History of hypertension Personal history of other diseases of circulatory system Marijuana use during Mild intermittent asthma with exacerbation Unspecified asthma, with exacerbation Carrier of group B Streptococcus Carrier or suspected carrier of Group B streptococcus documented in this encounter Additional Health Concerns Active Problems Noted Date Diagnosed Date OB Reminders 03/18/2024 documented as of this encounter Care Teams Head Start Director Relationship Specialty Start Date End Date Carly Gatica MD PCP - General Family Medicine 11/23/20 documented as of this encounter
--- OUTSIDE RECORDS SUMMARY | 2024-07-03 12:31 | External Medical Summary | Summary of Care ---
Author Name Unknown Organization [facility] Address [address] [address] Phone [phone] Care Team Providers Care Process Safety Manager Name Role Phone Carly Gatica MD Primary Care Provid er Reason for Visit * Reason Comments Non Stress Test Encounter Details Date Type Department Care Team (Late st Contact Info) Description 06/17/2024 1:00 PM EDT Office Visit Gynecology/Obstetri rigo Ayala [address] [place] [address] Faith Flood CRNP [address] [place] [address] Jamie Non Stress Tests Kmi [address] [place] [address] High-risk in third trimester*; Hypertensive left ventricular [...] 32 weeks. Food insecurity 03/11/2024 Overview: Per [facility] Protocol High-risk 03/07/2024 Obesity in , [...] have money to get more. Sometimes true [place] Depression Scale Answer Date Recorded [place] Depression Scale Total 12 06/11/2024 The thought [...] Gynecology/Obstetrics Samra Ayala [address] [place] [address] Sherine Purdy MD [address] [place] [address] Lyn Ayala Stress Tests Kim [address] [place] [address] 06/28/2024 3:00 PM EDT Office Visit Refinery Pipeline Operator OB Maternal Medicine [facility] Nikky Mensah [address] [place] [address] Dr [address] [place] [address] Britta Moore, DO [address] [place] [address] 06/28/2024 3:00 PM EDT Imaging Maternal Medicine [facility] Nikky Mensah [address] [place] [address] Dr [address] [place] [address] 07/12/2024 11:00 AM EDT Office Visit Gynecology/Obstetrics Samra Ayala [address] [place] [address] Poornima Freeman CRNP [address] [place] [address] 08/19/2024 6:00 PM EDT Office Visit [facility] [address] [facility] [place] [phone] Carly Gatica MD [address] [facility] [place] [address] Health Maintenance Due Date Last Done Comments [...] this encounter Medical Devices Implanted Type Area Maintenance Mechanic Technician Device Identifier Shelf Expiration Date Model / Serial / Lot Btb Tightrope - [id number] Implanted:Qty: 1 on 11/12/2019 by Christopher Brennan, DO at OR [facility] Right: Knee [employer] 01/01/2024 AR-1588BTB / / [id number] Tightrope Abs Implant, Open - [id number] Implanted:Qty: 1 on 11/12/2019 by Christopher Brennan DO at OR [facility] Right: Knee [employer] 01/01/2024 AR-1588TN-1 / / [id number] 7.5-10.5mm Graftlink Allograft, Frozen Graft Implanted:Qty: 1 on 11/12/2019 by Christopher Brennan DO at OR [facility] Right: Knee [employer] [id number] 09/01/2022 [facility] / [id number] 2 / LOT NA Tightrope Abs Button Rnd 11mm - [id number] Implanted:Qty: 1 on 11/12/2019 by Christopher Brennan DO at OR [facility] Right: Knee [employer] 08/31/2024 AR-1588TB-3 / / [id number] documented as of this encounter Visit Diagnoses [...] documented as of this encounter Care Teams Process Safety Manager Relationship Specialty Start Date End Date Carly Gatica MD PCP - General Family Medicine 11/23/20 documented as of this encounter
--- OUTSIDE RECORDS SUMMARY | 2024-07-03 12:31 | External Medical Summary ---
Author Name Unknown Address Unknown Organization K01:[facility] [place] [address] [address] [facility] [address] [place] [address] Laboratory Report Ordering Provider Test Date Status UBALDO KIDD 06/11/2024 14:12:57 Final Observation Date Value Abnormality Reference (Units ) Status Streptococcus agalactiae DNA [Presence] in Specimen by CATHY with probe detection 06/11/2024 14:12:57 Positive Abnormal Negative Final Group B Streptococcus detect ed by culture-enhanced PCR (amplified probe). GBS GBSCT - [facility] 06/11/2024 14:12:57 15.4 Final GBS SPCCT - [facility] 06/11/2024 14:12:57 0.0 Final Performing Location [facility] [place] [address] [place] [address]
--- OUTSIDE RECORDS SUMMARY | 2024-07-03 12:31 | External Medical Summary | Summary of Care ---
Author Name Unknown Organization [facility] Address [address] [address] Phone [phone] Care Team Providers Care Insurance Verification Specialist Name Role Phone Carly Gatica MD Primary Care Provid er Reason for Visit * Reason Comments Return Visit Encounter Details Date Type Department Care Team (Late st Contact Info) Description 05/28/2024 3:00 PM EST Office Visit Gynecology/Obstetric s Samra [facility] [address] [place] [address] Joey Henley MD [address] [place] [address] Hypertensive left ventricular hypertrophy, without heart failure*; IRAJ (generalized anxiety disorder); High-risk in third trimester; Obesity in , antepartum; History of hypertension; Marijuana use during ; Mild intermittent asthma with exacerbation Allergies No known active allergiesdocumented as of this encounter (statuses as of 05/29/2024) Medications Proventil HFA 108 (90 Base) MCG/ACT [...] as of this encounter (statuses as of 05/29/2024) Active Problems Problem Noted Date Diagnosed Date Mild intermittent asthma with exacerbation 03/12 Assessment [...] 32 weeks. Food insecurity 03/11/2024 Overview: Per [facility] Protocol High-risk 03/07/2024 Obesity in , [...] diagnosed and had echocardiogram showing borederline LVH. Paient has since lost weight, and her BPs [...] calories 08/07/2006 Overview (06/25/2009): Per Obesity Taxonomy Estimated Date of Delivery Comme nts Yes 07/08/2024 Based on last me nstrual period of 10/02/2023 documented as of this encounter (statuses as of 05/29/2024) Resolved Problems Problem Noted Date Diagnosed Date [...] as of this encounter (statuses as of 05/29/2024) Immunizations Name Administration Dates Next Due DTaP [...] have money to get more. Sometimes true [place] Depression Scale Answer Date Recorded [place] Depression Scale Total 11 03/07/2024 The thought of harming myself has occurred to me . Hardly ever 03/07/2024 Childcare Answer Date Recorded Do you feel [...] Sign Reading Time Taken Comments Blood Pressure 118/74 05/28/2024 3:02 PM EST Pulse - - Temperature - - Respiratory Rate - - Oxygen Saturation - - Inhaled Oxygen Concentration - - Weight - - Height 172.7 cm (5' 8") 05/28/2024 3:02 PM EST Body Mass Index - - documented in this encounter Progress Notes * Joey Henley MD - 05/28/2024 3:11 PM EST 1st time seeing pt Pt doing well Hx of LVH Seeing cardiology and MFM * Fanny Castillo LPN - 05/28/2024 3:02 PM EST 34w1d documented in this encounter Plan of Treatment Upcoming Encounters Date Type Department Care Team (Late st Contact Info) Description 06/07/2024 8:45 AM EST Office Visit Procurement Agent OB Maternal Medicine [facility] Nikky Mensah [address] [place] [address] Dr [address] [place] [address] Alex Harris MD [address] [place] [address] 06/07/2024 8:45 AM EST Imaging Maternal Medicine [facility] Nikky Mensah [address] [place] [address] Dr [address] [place] [address] 06/11/2024 3:15 PM EDT Office Visit Gynecology/Obstetrics [facility] [address] [place] [address] Poornima Freeman CRNP [address] [place] [address] 06/28/2024 3:00 PM EDT Office Visit Procurement Agent OB Maternal Medicine [facility] Nikky Mensah [address] [place] [address] [address] [place] [address] Britta Moore DO [address] [place] [address] 06/28/2024 3:00 PM EDT Imaging Maternal [facility] Nikky Mensah [address] [place] [address] [address] [place] [address] 08/19/2024 6:00 PM EDT [facility] [place] [address] [facility] [place] [phone] Carly Gatica MD [address] [facility] [place] [address] Health Maintenance Due Date Last Done Comments [...] this encounter Medical Devices Implanted Type Area Pediatric Pathologist Device Identifier Shelf Expiration Date Model / Serial / Lot Btb Tightrope - [id number] Implanted:Qty: 1 on 11/12/2019 by Christopher Brennan, DO at OR [facility] Right: Knee [employer] 01/01/2024 AR-1588BTB / / [id number] Tightrope Abs Implant, Open - [id number] Implanted:Qty: 1 on 11/12/2019 by Christopher Brennan DO at OR [facility] Right: Knee [employer] 01/01/2024 AR-1588TN-1 / / [id number] 7.5-10.5mm Graftlink Allograft, Frozen Graft Implanted:Qty: 1 on 11/12/2019 by Christopher Brennan DO at OR [facility] Right: Knee [employer] [id number] 09/01/2022 [facility] / [id number] 2 / LOT NA Tightrope Abs Button Rnd 11mm - [id number] Implanted:Qty: 1 on 11/12/2019 by Christopher Brennan DO at OR [facility] Right: Knee [employer] 08/31/2024 AR-1588TB-3 / / [id number] documented as of this encounter Visit Diagnoses [...] ultrasonics 30 weeks gestation of state, incidental Hypertensive left ventricular hypertrophy, without heart failure- Primary IRAJ (generalized anxiety disorder) Generalized anxiety disorder High-risk in third trimester Obesity in , antepartum Obesity complicating , childbirth, or the puerperium, antepartum condition or complication History of hypertension Personal history of other diseases of circulatory system Marijuana use during Mild intermittent asthma with exacerbation Unspecified asthma, with exacerbation documented in this encounter Additional Health Concerns Active Problems Noted Date Diagnosed Date OB Reminders 03/18/2024 documented as of this encounter Care Teams Insurance Verification Specialist Relationship Specialty Start Date End Date Carly Gatica MD PCP - General Family Medicine 11/23/20 documented as of this encounter
--- OUTSIDE RECORDS SUMMARY | 2024-07-03 12:31 | External Medical Summary | Summary of Care ---
Author Name Unknown Organization [facility] Address [address] [facility] [place] [address] Phone [phone] Care Team Providers Care Slitter Processed Film Name Role Phone Carly Gatica MD Primary Care Provid er Encounter Details Date Type Department Care Team (Late st Contact Info) Description 06/07/2024 8:45 AM EST Office Visit Automotive Design Layout Drafter OB Maternal Medicine [facility] Nikky Mensah [address] [place] [address] [address] [place] [id number] Alex Harris MD [address] [place] [address] Morbid obesity due to excess calories (HCC)*; Hypertensive left ventricular hypertrophy, without heart failure; Hypertension goal BP (blood pressure) < 140/90; Obesity in , antepartum Allergies No known active allergiesdocumented as of this encounter (statuses as of 06/07/2024) Medications Proventil HFA 108 (90 Base) MCG/ACT [...] as of this encounter (statuses as of 06/07/2024) Active Problems Problem Noted Date Diagnosed Date [...] 32 weeks. Food insecurity 03/11/2024 Overview: Per [facility] Protocol High-risk 03/07/2024 Obesity in , [...] as of this encounter (statuses as of 06/07/2024) Resolved Problems Problem Noted Date Diagnosed Date [...] as of this encounter (statuses as of 06/07/2024) Immunizations Name Administration Dates Next Due DTaP [...] have money to get more. Sometimes true [place] Depression Scale Answer Date Recorded [place] Depression Scale Total 11 03/07/2024 The thought [...] as of this encounter Progress Notes * Alex Harris MD - 06/07/2024 8:05 AM EST MATERNAL MEDICINE VISIT Gerard Dunbar is at 35w4d who presents to [facility] for an ultrasound and follow- up of her high riskpregnancy. The patient is currently 35 weeks 6 days gestation with CHTN on no medication and class II obesity She is being seen today by Maternal- Medicine for the following reasons: Problem List Items Addressed This Visit Morbid obesity due to excess calories (HCC) - Primary (Chronic) I reviewed the [place]. The EFW is [...] the fetus is in the breech presentation. Hypertension goal BP (blood pressure) < 140/90 Hypertensive left ventricular hypertrophy, without heart failure Obesity in , antepartum RECOMMENDATIONS: Recommend surveillance starting at 37 weeks secondary to class II obesity. Thank you for allowing us to participate in the care of this patient. Please call with any questions. Alex Harris MD 06/07/2024 8:05 AM documented in this encounter Miscellaneous Notes * Assessment & Plan Note - Alex Harris MD - 06/07/2024 8:53 AM EST Associated Problem(s): Morbid obesity due to excess calories (HCC) I reviewed the [place]. The EFW is [...] the fetus is in the breech presentation. documented in this encounter Plan of Treatment Upcoming Encounters Date Type Department Care Team (Late st Contact Info) Description 06/11/2024 3:15 PM EDT Office Visit Gynecology/Obstetrics Samra Ayala [address] [address] Poornima Freeman CRNP [address] [place] [address] 06/28/2024 3:00 PM EDT Office Visit Automotive Design Layout Drafter OB Maternal Medicine [facility] Nikky Mensah [address] [place] [address] [address] [place] [address] Teresa Brittajose luis Starr, DO [address] [facility] [place] [address] 06/28/2024 3:00 PM EDT Imaging [facility]aternal Medicine [facility] Nikky Mensah [address] [place] [address] [address] [place] [address] 08/19/2024 6:00 PM EDT Office Visit [facility] [address] [facility] [place] [address] Carly Gatica MD 226 [facility] [place] [address] Health Maintenance Due Date Last Done Comments [...] this encounter Medical Devices Implanted Type Area Primary Clinician Device Identifier Shelf Expiration Date Model / Serial / Lot Btb Tightrope - [id number] Implanted:Qty: 1 on 11/12/2019 by Christopher Brennan DO at OR [facility] Right: Knee [employer] 01/01/2024 AR-1588BTB / / [id number] Tightrope Abs Implant, Open - [id number] Implanted:Qty: 1 on 11/12/2019 by Christopher Brennan DO at OR [facility] Right: Knee [employer] 01/01/2024 AR-1588TN-1 / / [id number] 7.5-10.5mm Graftlink Allograft, Frozen Graft Implanted:Qty: 1 on 11/12/2019 by Christopher Brennan DO at OR [facility] Right: Knee [employer] [id number] 09/01/2022 [facility] / [id number] 2 / LOT NA Tightrope Abs Button Rnd 11mm - [id number] Implanted:Qty: 1 on 11/12/2019 by Christopher Brennan DO at OR [facility] Right: Knee [employer] 08/31/2024 AR-1588TB-3 / / [id number] documented as of this encounter Visit Diagnoses [...] or the puerperium, antepartum condition or complication documented in this encounter Additional Health Concerns Active Problems Noted Date Diagnosed Date OB Reminders 03/18/2024 documented as of this encounter Care Teams Slitter Processed Film Relationship Specialty Start Date End Date Carly Gatica MD PCP - General Family Medicine 11/23/20 documented as of this encounter
--- OUTSIDE RECORDS SUMMARY | 2024-07-03 12:31 | External Medical Summary | Summary of Care ---
Author Name Unknown Organization [facility] Address [address] [address] Phone [phone] Care Team Providers Care Warehouse Consultant Name Role Phone Carly Gatica MD Primary Care Provid er Reason for Visit * Reason Comments Return Visit Encounter Details Date Type Department Care Team (Late st Contact Info) Description 06/11/2024 3:15 PM EDT Office Visit Gynecology/Obstetric s Samra Ayala [address] [place] [address] Poonrima Freeman CRNP [address] [place] [address] High-risk in third trimester*; Hypertensive left ventricular hypertrophy, without heart failure; IRAJ (generalized anxiety disorder); Obesity in , antepartum; History of hypertension; Marijuana use during ; Mild intermittent asthma with exacerbation Allergies No known active allergiesdocumented as of this encounter (statuses as of 06/11/2024) Medications Proventil HFA 108 (90 Base) MCG/ACT [...] as of this encounter (statuses as of 06/11/2024) Active Problems Problem Noted Date Diagnosed Date [...] 32 weeks. Food insecurity 03/11/2024 Overview: Per [facility] Protocol High-risk 03/07/2024 Obesity in , [...] as of this encounter (statuses as of 06/11/2024) Resolved Problems Problem Noted Date Diagnosed Date [...] as of this encounter (statuses as of 06/11/2024) Immunizations Name Administration Dates Next Due DTaP [...] have money to get more. Sometimes true [place] Depression Scale Answer Date Recorded [place] Depression Scale Total 12 06/11/2024 The thought [...] Sign Reading Time Taken Comments Blood Pressure 120/78 06/11/2024 1:57 PM EDT Pulse - - Temperature - - Respiratory Rate - - Oxygen Saturation - - Inhaled Oxygen Concentration - - Weight 132 kg (291 lb) 06/11/2024 1:57 PM EDT Height - - Body Mass Index 44.25 05/28/2024 3:02 PM EST documented in this encounter Progress Notes * Poornima Freeman CRNP - 06/11/2024 2:01 PM EDT 36w1d MFM appt last week, baby is breech. Agreeable to start process to schedule c/s. Message to Laura. No other concerns. We discussed movement and BH contractions. Baby is active. Denies bleeding, LOF. To begin weekly NSTs next week. KENNETH [place] * Tabatha Warren LPN - 06/11/2024 1:53 PM EDT 36w1d Denies vaginal bleeding/rom + movement Labor instructions given today No new concerns documented in this encounter Plan of Treatment Upcoming Encounters Date Type Department Care Team (Late st Contact Info) Description 06/17/2024 1:00 PM EDT Office Visit Gynecology/Obstetrics Samra Ayala [address] [place] [address] BackerFaith CRNP [address] [place] [address] Lyn Ayala Stress Tests Kim [address] [place] [address] 06/25/2024 2:45 PM EDT Office Visit Gynecology/Obstetrics Samra Ayala [address] [place] [address] Sherine Purdy MD [address] [place] [address] Lyn Ayala Stress Tests Kim [address] [place] [address] 06/28/2024 3:00 PM EDT Office Visit Mitten Stitcher [facility] Nikky Mensah [address] [place] [address] [address] [facility] [address] Teresa Brittajose luis Starr, DO [address] [facility] [address] 06/28/2024 3:00 PM EDT Imaging Maternal Medicine [facility] Nikky Mensah [address] [place] [address] Dr [address] [facility] [address] 08/19/2024 6:00 PM EDT Office Visit [facility] [address] [place] [phone] Carly Gatica MD 226 [facility] [place] [phone] Pending Results Name Type Priority Associated Diagnoses Date /Time GROUP B STREP CULTURE/PCR Lab Routine High-risk in third trimester 06/11/2024 2:12 PM EDT Scheduled Orders Name Type Priority Associated Diagnoses Orde r Schedule GROUP B STREP CULTURE/PCR Lab Routine High-risk in third trimester Expected: 06/11/2024, Expires: 06/11/2025 Health Maintenance Due Date Last Done Comments [...] this encounter Medical Devices Implanted Type Area Ammonia Worker Device Identifier Shelf Expiration Date Model / Serial / Lot Btb Tightrope - [id number] Implanted:Qty: 1 on 11/12/2019 by Christopher Brennan DO at OR [facility] Right: Knee [employer] 01/01/2024 AR-1588BTB / / [id number] Tightrope Abs Implant, Open - [id number] Implanted:Qty: 1 on 11/12/2019 by Christopher Brennan DO at OR [facility] Right: Knee [employer] 01/01/2024 AR-1588TN-1 / / [id number] 7.5-10.5mm Graftlink Allograft, Frozen Graft Implanted:Qty: 1 on 11/12/2019 by Christopher Brennan DO at OR [facility] Right: Knee [employer] [id number] 09/01/2022 [facility] / [id number] 2 / LOT NA Tightrope Abs Button Rnd 11mm - [id number] Implanted:Qty: 1 on 11/12/2019 by Christopher Brennan DO at OR [facility] Right: Knee [employer] 08/31/2024 AR-1588TB-3 / / [id number] documented as of this encounter Visit Diagnoses [...] documented as of this encounter Care Teams Warehouse Consultant Relationship Specialty Start Date End Date Carly Gatica MD PCP - General Family Medicine 11/23/20 documented as of this encounter
--- OUTSIDE RECORDS SUMMARY | 2024-07-03 12:31 | External Medical Summary | Summary of Care ---
Author Name Unknown Organization [facility] Address [address] [place] [facility] [place] [address] Phone [phone] Care Team Providers Care Buggy Man Name Role Phone Carly Gatica MD Primary Care Provid er Encounter Details Date Type Department Care Team (Late st Contact Info) Description 06/07/2024 8:45 AM EST Office Visit Biller OB Maternal Medicine [facility] Nikky Mensah [address] [place] [address] Dr [address] [place] [id number] Alex Harris MD [address] [place] [address] Morbid obesity due to excess [...] 32 weeks. Food insecurity 03/11/2024 Overview: Per [facility] Protocol High-risk 03/07/2024 Obesity in , [...] have money to get more. Sometimes true [place] Depression Scale Answer Date Recorded [place] Depression Scale Total 11 03/07/2024 The thought [...] Dunbar is at 35w4d who presents to [facility] for an ultrasound and follow- up of [...] Visit Gynecology/Obstetrics Samra Ayala [address] [address] Poornima Freeman CRNP [address] [place] [address] 06/28/2024 3:00 PM EDT Office Visit Biller OB Maternal Medicine [facility] Nikky Mensah [address] [place] [address] [address] [place] [address] Teresa Brittajose luis Starr, DO [address] [facility] [place] [address] 06/28/2024 3:00 PM EDT Imaging Maternal Medicine [facility] Nikky Mensah [address] [place] [address] [address] [place] [address] 08/19/2024 6:00 PM EDT Office Visit [facility] [address] [facility] [place] [address] Carly Gatica MD [address] [facility] [place] [address] Health Maintenance Due [...] encounter Medical Devices Implanted Type Area Primary Special Education Teacher Device Identifier Shelf Expiration Date Model / Serial / Lot Btb Tightrope - [id number] Implanted:Qty: 1 on 11/12/2019 by Christopher Brennan DO at OR [facility] Right: Knee [employer] 01/01/2024 AR-1588BTB / / [id number] Tightrope Abs Implant, Open - [id number] Implanted:Qty: 1 on 11/12/2019 by Christopher Brennan DO at OR [facility] Right: Knee [employer] 01/01/2024 AR-1588TN-1 / / [id number] 7.5-10.5mm Graftlink Allograft, Frozen Graft Implanted:Qty: 1 on 11/12/2019 by Christopher Brennan DO at OR [facility] Right: Knee [employer] [id number] 09/01/2022 [facility] / [id number] 2 / LOT NA Tightrope Abs Button Rnd 11mm - [id number] Implanted:Qty: 1 on 11/12/2019 by Christopher Brennan DO at OR [facility] Right: Knee [employer] 08/31/2024 AR-1588TB-3 / / [id number] documented as of this encounter Visit Diagnoses [...] documented as of this encounter Care Teams Buggy Man Relationship Specialty Start Date End Date Carly Gatica MD PCP - General Family Medicine 11/23/20 documented as of this encounter
--- OUTSIDE RECORDS SUMMARY | 2024-07-03 12:31 | External Medical Summary | Summary of Care ---
Author Name Unknown Organization [facility] Address [address] [place] [address] Phone [phone] Care Team Providers Care Manager Financial Planning Name Role Phone Carly Gatica MD Primary Care Provid er Reason for Visit * Reason Onset Date Comments [employer] Supervisor Documentation 05/24/2024 Encounter Details Date Type Department Care Team (Late st Contact Info) Description 05/24/2024 Telephone Sheep And Wheat Farmer Obstetrics Maternal Medicine, [place] [address] [place] [address] Genet Mata, ASSURANCE SERVICES MANAGER HEALTH CARE [address] [place] [address] [employer] Supervisor Documentation Allergies No known active allergiesdocumented as of this encounter (statuses as of 05/24/2024) Medications Proventil HFA 108 (90 Base) MCG/ACT [...] monitoring blood pressure 1 Each 4 Active documented as of this encounter (statuses as of 05/24/2024) Active Problems Problem Noted Date Diagnosed Date [...] 32 weeks. Food insecurity 03/11/2024 Overview: Per [facility] Protocol High-risk 03/07/2024 Obesity in , [...] as of this encounter (statuses as of 05/24/2024) Resolved Problems Problem Noted Date Diagnosed Date [...] as of this encounter (statuses as of 05/24/2024) Immunizations Name Administration Dates Next Due DTaP [...] have money to get more. Sometimes true [place] Depression Scale Answer Date Recorded [place] Depression Scale Total 11 03/07/2024 The thought [...] Telephone Encounter - Genet Mata MSW - 05/24/2024 2:01 PM EST Telephone call to check in with pt. *See prior SW notes for details. Pt reports things are going well. Pt reports she does not have any concerns or questions at this time. Denies needing any assistance. documented in this encounter Plan of Treatment Upcoming Encounters Date Type Department Care Team (Late st Contact Info) Description 05/28/2024 3:00 PM EST Office Visit Gynecology/Obstetrics [facility] [address] [facility] [place] [address] Joey Henley MD 132 [facility] [place] [address] 06/07/2024 8:45 AM EST Office Visit Sheep And Wheat Farmer OB Maternal Medicine [facility] Nikky Mensah [address] [place] [address] [address] [place] [address] Alex Harris MD [address] [facility] [place] [id number] 06/07/2024 8:45 AM EST Imaging [facility] Nikky Mensah [address] [place] [address] [address] [place] [address] 06/28/2024 3:00 PM EDT Office Visit Sheep And Wheat Farmer OB Maternal Medicine [facility] Nikky Mensah [address] [place] [address] [address] [place] [address] Britta Moore, DO [address] [facility] [address] 06/28/2024 3:00 PM EDT Imaging Maternal [facility] Nikky Mensah [address] [place] [address] [address] [place] [address] 08/19/2024 6:00 PM EDT Office Visit [facility] [address] [place] [address] Carly Gatica MD [address] [place] [address] Health Maintenance Due Date Last Done Comments [...] this encounter Medical Devices Implanted Type Area Zoology Technical Officer Device Identifier Shelf Expiration Date Model / Serial / Lot Btb Tightrope - [id number] Implanted:Qty: 1 on 11/12/2019 by Christopher Brennan DO at OR [facility] Right: Knee [employer] 01/01/2024 AR-1588BTB / / [id number] Tightrope Abs Implant, Open - [id number] Implanted:Qty: 1 on 11/12/2019 by Christopher Brennan DO at OR [facility] Right: Knee [employer] 01/01/2024 AR-1588TN-1 / / [id number] 7.5-10.5mm Graftlink Allograft, Frozen Graft Implanted:Qty: 1 on 11/12/2019 by Christopher Brennan DO at OR [facility] Right: Knee [employer] [id number] 09/01/2022 [facility] / [id number] / LOT NA Tightrope Abs Button Rnd 11mm - [id number] Implanted:Qty: 1 on 11/12/2019 by Christopher Brennan DO at OR [facility] Right: Knee [employer] 08/31/2024 AR-1588TB-3 / / [id number] documented as of this encounter Additional Health Concerns Active Problems Noted Date Diagnosed Date OB Reminders 03/18/2024 documented as of this encounter Care Teams Manager Financial Planning Relationship Specialty Start Date End Date Carly Gatica MD PCP - General Family Medicine 11/23/20 documented as of this encounter
--- OUTSIDE RECORDS SUMMARY | 2024-07-03 12:32 | External Medical Summary | Summary of Care ---
Author Name Unknown Organization [facility] Address [address] [facility] [place] [address] Phone [phone] Care Team Providers Care Project Development Manager Name Role Phone Carly Gatica MD Primary Care Provid er Reason for Visit * Reason Comments Re-Check Encounter Details Date Type Department Care Team (Late Contact Info) Description 05/06/2024 9:40 AM EST Office Visit [facility] [place] [address] Carly Gatica MD [address] [facility] [place], [place] [id number] High-risk in third trimester*; Moderate episode of recurrent major depressive disorder (HCC); Morbid obesity due to excess calories (HCC); History of hypertension Allergies No known active allergiesdocumented as of this encounter (statuses as of 05/06/2024) Medications Proventil HFA 108 (90 Base) MCG/ACT [...] as of this encounter (statuses as of 05/06/2024) Active Problems Problem Noted Date Diagnosed Date [...] 32 weeks. Food insecurity 03/11/2024 Overview: Per [facility] Protocol High-risk 03/07/2024 Obesity in , [...] as of this encounter (statuses as of 05/06/2024) Resolved Problems Problem Noted Date Diagnosed Date [...] as of this encounter (statuses as of 05/06/2024) Immunizations Name Administration Dates Next Due DTaP [...] have money to get more. Sometimes true [place] Depression Scale Answer Date Recorded [place] Depression Scale Total 11 03/07/2024 The thought [...] ages 0-17 years) Not on file 02/20/2024 Estimated Date of Delivery Comme nts [...] Sign Reading Time Taken Comments Blood Pressure 128/84 05/06/2024 10:05 AM EST Pulse 80 05/06/2024 9:18 AM EST Temperature 36.5 °C (97.7 °F) 05/06/2024 9:18 AM ES T Respiratory Rate 16 05/06/2024 9:18 AM EST Oxygen Saturation 99% 05/06/2024 9:18 AM EST Inhaled Oxygen Concentration - - Weight 122.4 kg (269 lb 14.4 oz) 05/06/2024 9:18 AM EST Height - - Body Mass Index 41.04 03/07/2024 2:30 PM EST documented in this encounter Progress Notes * Carly Gatica MD - 05/06/2024 9:36 AM EST ASSESSMENT / PLAN: Gerard Dunbar is a 23 year old female with PMHx h/o HTN /depressio n- here for recheck HTN Mostly resolved since losing significant amt of weight with exercise Recheck BP today shows BP is in adequate control Did have an episode of light pink discharge yesterday that has since resolved, mom feels baby moving Mood Stable Will revisit at next visit which will be about 1 mo High-risk in third trimester (Primary) Moderate episode of recurrent major depressive disorder (HCC) Morbid obesity due to excess calories (HCC) History of hypertension If needed, prefers contact by: Ok to leave message on phone: SUBJECTIVE: Nursing Notes: Daria Caraballo LPN 05/06/24 0942 Signed 6 month return HPI: Gerard Dunbar is a 23 year old female. Here for recheck. Feels well - living w parents, things are peaceful at home Plans to return to work at [employer] after baby is born FOB not involved Reviewed sources 1- Patient Active Problem List Diagnosis Morbid obesity due to excess calories (HCC) BMI 45.0-49.9, adult ([facility]) Hypertension goal BP (blood pressure) < 140/90 Hypertensive left ventricular hypertrophy, without heart failure Moderate episode of recurrent major depressive disorder (HCC) IRAJ (generalized anxiety disorder) Suicidal thoughts High-risk Obesity in , antepartum History of hypertension Marijuana use during Mild intermittent asthma with exacerbation Food insecurity Current Outpatient Medications Medication Sig Dispense Refill Proventil HFA 108 (90 Base) MCG/ACT Inhalation Aerosol Solution Inhale 2 Puffs by mouth every 4 hours as needed for Wheezing. 18 g 3 Plus 27-1 MG Oral Tablet Take 1 Tablet by mouth in the morning. 100 Tablet 3 Blood Pressure Cuff For monitoring blood pressure 1 Each 0 No current facility-administered medications for this visit. OBJECTIVE: BP 128/84 | Pulse 80 | Temp 97.7 °F (36.5 °C) | Resp 16 | Wt 269 lb 14.4 oz (122.4 kg) | LMP 10/02/2023 | SpO2 99% | BMI 41.04 kg/m² | BSA 2.42 m² Vitals reviewed and is normotensive / afebrile / and not tachycardic General: No acute distress. Neuro: Alert Pleasant & interactive. Respiratory: Good inspiratory effort, no labored breathing. CTAB CV: RRR no M R G Abd: soft nontender normoactive bs no hsm. Gravid HEENT: Conjunctivae appear clear. No swelling noted face or lips. Skin: No rash visible on exposed skin areas, normal coloration & appears dry. Psych: Normal affect. Fluent speech. Carly Gatica MD [facility], [address] [address] There are no Patient Instructions on file for this visit. documented in this encounter Nursing Notes * Daria Caraballo LPN - 05/06/2024 9:18 AM EST 6 month return documented in this encounter Plan of Treatment Upcoming Encounters Date Type Department Care Team (Late st Contact Info) Description 05/08/2024 1:45 PM EST Office Visit Gynecology/Obstetrics [facility] [address] [facility] [place] [address] Faith Flood CRNP [address] [place] [address] 05/09/2024 2:30 PM EST Cardiac Studies Cardiac Studies, [facility] [address] [place] [address] 05/28/2024 3:00 PM EST Office Visit Gynecology/Obstetrics [facility] [address] [place] [address] Joey Henley MD [address] [place] [address] 06/07/2024 8:45 AM EST Office Visit [facility] Maternal Medicine [facility] Nikky Mensah [address] [place] [address] [address] [place] [address] Alex Harris MD [address] [place] [address] 06/07/2024 8:45 AM EST Imaging Maternal Medicine [facility] Nikky Mensah [address] [place] [address] [address] [facility] [address] 06/28/2024 3:00 PM EDT Office Visit [facility] Maternal [facility] Nikky Mensah [address] [place] [address] [address] [facility] [address] Britta Moore DO [address] [place] [address] 06/28/2024 3:00 PM EDT [facility] Nikky Mensah [address] [place] [address] [address] [place] [address] 08/19/2024 6:00 PM EDT Office Visit [facility] [place] [address] [place] [address] Carly Gatica MD [address] [place] [address] Health Maintenance Due Date Last Done Comments Pneumococcal Vaccine: Pediat rics (0 to 5 [...] this encounter Medical Devices Implanted Type Area Humanities Teacher Device Identifier Shelf Expiration Date Model / Serial / Lot Btb Tightrope - [id number] Implanted:Qty: 1 on 11/12/2019 by Christopher Brennan, DO at OR [facility] Right: Knee [employer] 01/01/2024 AR-1588BTB / / [id number] Tightrope Abs Implant, Open - [id number] Implanted:Qty: 1 on 11/12/2019 by Christopher Brennan DO at OR [facility] Right: Knee [employer] 01/01/2024 AR-1588TN-1 / / [id number] 7.5-10.5mm Graftlink Allograft, Frozen Graft Implanted:Qty: 1 on 11/12/2019 by Christopher Brennan DO at OR [facility] Right: Knee [employer] [id number] 09/01/2022 [facility] / [id number] 2 / LOT NA Tightrope Abs Button Rnd 11mm - [id number] Implanted:Qty: 1 on 11/12/2019 by Christopher Brennan DO at OR [facility] Right: Knee [employer] 08/31/2024 AR-1588TB-3 / / [id number] documented as of this encounter Visit Diagnoses [...] ultrasonics 30 weeks gestation of state, incidental High-risk in third trimester- Primary Moderate episode of recurrent major depressive disorder (HCC) Morbid obesity due to excess calories (HCC) History of hypertension Personal history of other diseases of circulatory system documented in this encounter Additional Health Concerns Active Problems Noted Date Diagnosed Date OB Reminders 03/18/2024 documented as of this encounter Care Teams Project Development Manager Relationship Specialty Start Date End Date Carly Gatica MD PCP - General Family Medicine 11/23/20 documented as of this encounter"
--- OUTSIDE RECORDS SUMMARY | 2024-07-03 12:32 | External Medical Summary | Summary of Care ---
Author Name Unknown Organization [facility] Address [address] [facility] [place] [address] Phone [phone] Care Team Providers Care Product Development Assistant Name Role Phone Carly Gatica MD Primary Care Provid er Reason for Visit * Reason Onset Date Comments Advice 05/06/[address] Patel er Encounter Details Date Type Department Care Team (Late st Contact Info) Description 05/06/2024 Telephone Gynecology/Obstetrics, [address] [place] [address] Joey Henley MD [address] [facility] [place] [address] Advice (Rev with Dr. Vail) Allergies No known active allergiesdocumented as of [...] 32 weeks. Food insecurity 03/11/2024 Overview: Per [facility] Protocol High-risk 03/07/2024 Obesity in , [...] DTaP Dipth/Tet/Acell Pertussis (Infanrix), Peds 07/07/2008,12/18/2003,03/06/2003,11/29,2002 H1N1 2008 Influenza, IM 04/16/2009 HIB PRP-T, 4 Dose, [...] have money to get more. Sometimes true [place] Depression Scale Answer Date Recorded [place] Depression Scale Total 11 03/07/2024 The thought [...] encounter Miscellaneous Notes * Telephone Encounter - Dania Good RN - 05/06/2024 11:41 AM EST Spoke with pt. She has not had further bleeding. * Telephone Encounter - Lelo Patel RN - 05/06/2024 10:10 AM EST T/C from pt stating that she passed blood tinged mucous yesterday. None today. Admits to +FM. Denies UC or cramping. Denies recent intercourse. Reassurance given. Advised pt to call office with any LOF, vaginal bleeding, decreased FM or UC. Tostay well-hydrated with water as well. Please review with vest front presser provider. Cody's pt. documented in this encounter Plan of Treatment Upcoming Encounters Date Type Department Care Team (Late st Contact Info) Description 05/08/2024 1:45 PM EST Office Visit Gynecology/Obstetrics [facility] 132 [facility] [place] [address] Faith Flood CRNP 132 [facility] [place] [address] 05/09/2024 2:30 PM EST Cardiac Studies Cardiac Studies, [facility] [address] [facility] [place] [address] 05/28/2024 3:00 PM EST Office Visit Gynecology/Obstetrics [facility] [address] [facility] [place] [address] Joey Henley MD 132 [facility] [place] [address] 06/07/2024 8:45 AM EST Office Visit Outer Diameter Technician OB Maternal Medicine [facility] Nikky Mensah [address] [place] [address] [address] [place] [address] Alex Harris MD [address] [place] [address] 06/07/2024 8:45 AM EST Imaging Maternal Medicine [facility] Nikky Mensah [address] [place] [address] [address] [place] [address] 06/28/2024 3:00 PM EDT Office Visit Outer Diameter Technician OB Maternal Medicine [facility] Nikky Mensah [address] [place] [address] [address] [place] [address] Britta Moore DO [address] [place] [address] 06/28/2024 3:00 PM EDT Imaging Maternal Medicine [facility] Nikky Mensah [address] [place] [address] [address] [place] [address] 08/19/2024 6:00 PM EDT Office Visit [facility] [address] [place] [phone] Carly Gatica MD [address] [place] [address] Health Maintenance Due Date Last Done Comments [...] this encounter Medical Devices Implanted Type Area Junior Underwriter Device Identifier Shelf Expiration Date Model / Serial / Lot Btb Juan - [id number] Implanted:Qty: 1 on 11/12/2019 by Christopher Brennan DO at OR [facility] Right: Knee [employer] 01/01/2024 AR-1588BTB / / [id number] Tightrope Abs Implant, Open - [id number] Implanted:Qty: 1 on 11/12/2019 by Christopher Brennan DO at OR [facility] Right: Knee [employer] 01/01/2024 AR-1588TN-1 / / [id number] 7.5-10.5mm Graftlink Allograft, Frozen Graft Implanted:Qty: 1 on 11/12/2019 by Christopher Brennan DO at OR [facility] Right: Knee [employer] [id number] 09/01/2022 [facility] / [id number] 2 / LOT NA Tightrope Abs Button Rnd 11mm - [id number] Implanted:Qty: 1 on 11/12/2019 by Christopher Brennan DO at OR [facility] Right: Knee [employer] 08/31/2024 AR-1588TB-3 / / [id number] documented as of this encounter Additional Health Concerns Active Problems Noted Date Diagnosed Date OB Reminders 03/18/2024 documented as of this encounter Care Teams Product Development Assistant Relationship Specialty Start Date End Date Carly Gatica MD PCP - General Family Medicine 11/23/20 documented as of this encounter
--- OUTSIDE RECORDS SUMMARY | 2024-07-03 12:32 | External Medical Summary | Summary of Care ---
Author Name Unknown Organization [facility] Address [address] [facility] [place] [address] Phone [phone] Care Team Providers Care Greeting Card Editor Name Role Phone Carly Gatica MD Primary Care Provid er Reason for Visit * Reason Comments Return Visit Encounter Details Date Type Department Care Team (Late Contact Info) Description 05/08/2024 1:45 PM EST Office Visit Gynecology/Obstetric s [facility] [employer] [employer] [address] [place] [address] BackerFaith CRNP [address] [place] [address] High-risk in third trimester*; Hypertensive left ventricular hypertrophy, without heart failure; IRAJ (generalized anxiety disorder); Obesity in , antepartum; History of hypertension; Marijuana use during ; Mild intermittent asthma with exacerbation Allergies No known active allergiesdocumented as of this encounter (statuses as of 05/08/2024) Medications Proventil HFA 108 (90 Base) MCG/ACT [...] as of this encounter (statuses as of 05/08/2024) Active Problems Problem Noted Date Diagnosed Date [...] 32 weeks. Food insecurity 03/11/2024 Overview: Per [facility] Protocol High-risk 03/07/2024 Obesity in , [...] as of this encounter (statuses as of 05/08/2024) Resolved Problems Problem Noted Date Diagnosed Date [...] as of this encounter (statuses as of 05/08/2024) Immunizations Name Administration Dates Next Due DTaP [...] have money to get more. Sometimes true [place] Depression Scale Answer Date Recorded [place] Depression Scale Total 11 03/07/2024 The thought [...] Sign Reading Time Taken Comments Blood Pressure 132/86 05/08/2024 12:51 PM EST Pulse - - Temperature - - Respiratory Rate - - Oxygen Saturation - - Inhaled Oxygen Concentration - - Weight 122.7 kg (270 lb 6.4 oz) 025 12:51 PM EST Height - - Body Mass Index 41.11 03/07/2024 2:30 PM EST documented in this encounter Progress Notes * Faith Flood CRNP - 05/08/2024 12:54 PM EST 31w2d Baby is active. Had 1 episode of scant spotting a few days ago, none since. No cramping or LOF. Saw [facility] last week for growth scan. Scheduled for echo tomorrow. Encouraged to look into pediatricians. 2 week return KENNETH Weinstein * Rebeca Otto CMA - 05/08/2024 12:51 PM EST 31w2d Denies any concerns documented in this encounter Plan of Treatment Upcoming Encounters Date Type Department Care Team (Late st Contact Info) Description 05/22/2024 4:00 PM EST Cardiac Studies Cardiac Studies, [facility] [address] [facility] [place] [address] 05/28/2024 3:00 PM EST Office Visit Gynecology/Obstetrics [facility] [address] [place] [address] Joey Henley MD 132 [facility] [place] [address] 06/07/2024 8:45 AM EST Office Visit Surgical Services Assistant OB Maternal Medicine [facility] Nikky Mensah [address] [place] [address] [address] [facility] [address] Alex Harris MD [address] [place] [address] 06/07/2024 8:45 AM EST Imaging Maternal Medicine [facility] Nikky Mensah [address] [place] [address] [address] [place] [address] 06/28/2024 3:00 PM EDT Office Visit Surgical Services Assistant OB Maternal Medicine [facility] Nikky Mensah [address] [place] [address] [address] [facility] [address] Britta Moore DO [address] [place] [address] 06/28/2024 3:00 PM EDT Imaging Maternal Medicine [facility] Nikky Mensah [address] [place] [address] Dr [address] [place] [address] 08/19/2024 6:00 PM EDT [facility] [address] [facility] [place] [phone] Carly Gatica MD 226 [facility] [place] [address] Health Maintenance Due Date Last Done Comments [...] this encounter Medical Devices Implanted Type Area Cable Installation Manager Device Identifier Shelf Expiration Date Model / Serial / Lot Btb Tightrope - [id number] Implanted:Qty: 1 on 11/12/2019 by Christopher Brennan, DO at OR [facility] Right: Knee [employer] 01/01/2024 AR-1588BTB / / [id number] Tightrope Abs Implant, Open - [id number] Implanted:Qty: 1 on 11/12/2019 by Christopher Brennan, at OR [facility] Right: Knee [employer] 01/01/2024 AR-1588TN-1 / / [id number] 7.5-10.5mm Graftlink Allograft, Frozen Graft Implanted:Qty: 1 on 11/12/2019 by Christopher Brennan DO at OR [facility] Right: Knee [employer] [id number] 09/01/2022 [facility] / [id number] 2 / LOT NA Tightrope Abs Button Rnd 11mm - [id number] Implanted:Qty: 1 on 11/12/2019 by Christopher Brennan, at OR [facility] Right: Knee [employer] 08/31/2024 MARIBELL-1588TB-3 / / [id number] documented as of this encounter Procedures Procedure Name Priority Date/Time Associated Diagnosis Comments URINALYSIS OBSTETRICS, POINT OF CARE [facility] 05/08/2024 1:07 PM EST documented in this encounter Results * (ABNORMAL) URINALYSIS OBSTETRICS, POINT OF CARE (05/08/2024 1:07 PM EST) Color, Urine Yellow Light Yellow, Yellow 05/08/2024 1:09 PM EST [facility] [place] [facility] [facility] Clarity, Urine Clear Clear 05/08/2024 1:09 PM EST [facility] [place] [facility]10 Glucose, Urine Negative Negative mg/dL 05/08/2024 1:09 PM EST [facility] [place] 57[facility]10 Bilirubin, Urine Negative Negative 05/08/2024 1:09 PM EST [facility] [place] 57[facility]10 Ketone, Urine Negative Negative mg/dL 05/08/2024 1:09 PM EST [facility] [place] [facility]10 Specific [place], Urine 1.020 1.003 - 1.030 05/08/2024 1:09 PM EST [facility] [place] [facility]10 Blood, Urine Negative Negative 05/08/2024 1:09 PM EST [facility] [place] [facility] pH, Urine 7.5 5.0, 5.5, 6.0, 6.5, 7.0, 7.5 units 05/08/2024 1:09 PM EST [facility] [place] [facility] Protein, Urine Negative Negative mg/dL 05/08/2024 1:09 PM EST [facility] [place] [facility]10 Urobilinogen, Urine 0.2 0.2, 1.0 mg/dL 05/08/2024 1:09 PM EST [facility] [place] 57[facility]10 Nitrite, Urine Negative Negative 05/08/2024 1:09 PM EST [facility] [place] [facility]10 Esterase, Urine Moderate(A) Negative 05/08/2024 1:09 PM EST [facility] [place] [facility]10 Urine 05/08/2024 1:07 PM EST 05/08/2024 1:09 PM EST Faith Bedoya Backer KENNETH LAB POINT O F CARE TEST DOCKED DEVICE UNSOLICITED RESULTS Final Result [facility]10 [address] [place] [address] documented in this encounter Visit Diagnoses Diagnosis Obesity in [...] state, incidental High-risk in third trimester- Primary Hypertensive left [...] documented as of this encounter Care Teams Greeting Card Editor Relationship Specialty Start Date End Date Carly Gatica MD PCP - General Family Medicine 11/23/20 documented as of this encounter
--- OUTSIDE RECORDS SUMMARY | 2024-07-03 12:32 | External Medical Summary | Summary of Care ---
Author Name Unknown Organization [facility] Address [address] [facility] [place] [address] Phone [phone] Care Team Providers Care Assembler Bonding Name Role Phone Carly Gatica MD Primary Care Provid er Reason for Visit * Reason Comments Return Visit Encounter Details Date Type Department Care Team (Late Contact Info) Description 04/24/2024 1:30 PM EST Office Visit Gynecology/Obstetric s Samra Ayala [address] [place] [address] BackerFaith CRNP [address] [place] [address] High-risk in third trimester*; Hypertensive left ventricular hypertrophy, without heart failure; IRAJ (generalized anxiety disorder); Obesity in , antepartum; History of hypertension; Marijuana use during ; Mild intermittent asthma with exacerbation; Need for skrxfoeity-ypziwlj-hc rtussis (Tdap) vaccine Allergies No known active allergiesdocumented as of this encounter (statuses as of 04/24/2024) Medications Proventil HFA 108 (90 Base) MCG/ACT [...] as of this encounter (statuses as of 04/24/2024) Active Problems Problem Noted Date Diagnosed Date [...] 32 weeks. Food insecurity 03/11/2024 Overview: Per [facility] Protocol High-risk 03/07/2024 Obesity in , [...] at NOB Latest EKG Assessment & Plan (03/12/2024 1:55 PM EST): [...] as of this encounter (statuses as of 04/24/2024) Resolved Problems Problem Noted Date Diagnosed Date [...] as of this encounter (statuses as of 04/24/2024) Immunizations Name Administration Dates Next Due DTaP [...] have money to get more. Sometimes true [place] Depression Scale Answer Date Recorded [place] Depression Scale Total 11 03/07/2024 The thought [...] do you feel lonely or isolated from ose around you? Always 02/20/2024 Financial Resource [...] Reading Time Taken Comments Blood Pressure 120/66 04/24/2024 12:42 PM EST Pulse - - Temperature - - Respiratory Rate - - Oxygen Saturation - - Inhaled Oxygen Concentration - - Weight 120.2 kg (265 lb) 04/24/2024 12:42 PM EST Height - - Body Mass Index 40.29 03/07/2024 2:30 PM EST documented in this encounter Progress Notes * Faith Flood CRNP - 04/24/2024 12:49 PM EST 29w2d No further bleeding. Baby moving well. Denies LOF or ctx. Tdap vaccine today. Discussed [facility] and when to call with concerns. Scheduled for follow up appts and u/s with MFM. Strongly advised to schedule echo ESTUARDO, as these results can impact plan of delivery (such as delivery at a tertiary care center). She is agreeable. Will schedule a future OB visit with a physician as well. 2 week return KENNETH Weinstein * Tabatha Warren LPN - 04/24/2024 12:41 PM EST 29w2d Denies vaginal bleeding/rom + movement Tdap today documented in this encounter Nursing Notes * Tabatha Warren LPN - 04/24/2024 1:01 PM EST Patient here for tdap injection. Patient doing well no complaints. Injection given IM as ordered. Patient tolerated well. Patient to follow up as directed. Patient instructed to call if any complications. Patient verbalized understanding of instructions given. Injection site: Left Deltoid Medication Source: Dispensed stock medication documented in this encounter Plan of Treatment Upcoming Encounters Date Type Department Care Team (Late st Contact Info) Description 05/03/2024 3:00 PM EST Office Visit Community Health Representative OB Maternal Medicine [facility] Nikky Mensah [address] [place] [address] Dr [address] [facility] [address] Britta Moore DO [address] [place] [address] 05/03/2024 3:00 PM EST Imaging Maternal Medicine [facility] Nikky Mensah [address] [place] [address] Dr [address] [facility] [place] [address] 05/06/2024 9:40 AM EST Office Visit [facility] [address] [place] [phone] Carly Gatica MD [address] [place] [address] 05/08/2024 1:45 PM EST Office Visit Gynecology/Obstetrics [facility] [address] [place] [address] Faith Flood CRNP [address] [facility] [address] 05/09/2024 2:30 PM EST Cardiac Studies Cardiac Studies, [facility] [address] [place] [address] 05/28/2024 3:00 PM EST Office Visit Gynecology/Obstetrics [facility] [address] [place] [address] Joey Henley MD [address] [place] [address] 06/07/2024 8:45 AM EST Office Visit Community Health Representative [facility] Medicine [facility] Nikky Mensah [address] [place] [address] [address] [place] [address] Britta Moore, DO [address] [place] [address] 06/07/2024 8:45 AM EST Imaging Maternal Medicine [facility] Nikky Mensah [address] [place] [address] [address] [place] [address] 06/28/2024 3:00 PM EDT Office Visit Community Health Representative OB Maternal Medicine [facility] Nikky Mensah [address] [place] [address] [address] [place] [address] Britta Moore, DO [address] [place] [address] 06/28/2024 3:00 PM EDT Imaging Maternal Medicine [facility] Nikky Mensah [address] [place] [address] [address] [facility] [address] 08/19/2024 6:00 PM EDT Office Visit [facility] [place] [address] [facility] [place] [phone] Carly Gatica MD [address] [facility] [address] Health Maintenance Due Date Last Done Comments [...] this encounter Medical Devices Implanted Type Area Sound Recording Technician Device Identifier Shelf Expiration Date Model / Serial / Lot Btb Tightrope - [id number] Implanted:Qty: 1 on 11/12/2019 by Christopher Brennan DO at OR [facility] Right: Knee [employer] 01/01/2024 AR-1588BTB / / [id number] Tightrope Abs Implant, Open - [id number] Implanted:Qty: 1 on 11/12/2019 by Christopher Brennan DO at OR [facility] Right: Knee [employer] 01/01/2024 AR-1588TN-1 / / [id number] 7.5-10.5mm Graftlink Allograft, Frozen Graft Implanted:Qty: 1 on 11/12/2019 by Christopher Brennan DO at OR [facility] Right: Knee [employer] [id number] 09/01/2022 [facility] / [id number] 2 / LOT NA Tightrope Abs Button Rnd 11mm - [id number] Implanted:Qty: 1 on 11/12/2019 by Christopher Brennan DO at OR [facility] Right: Knee [employer] 08/31/2024 AR-1588TB-3 / / [id number] documented as of this encounter Visit Diagnoses [...] asthma with exacerbation Unspecified asthma, with exacerbation Need for jmgmvfocrx-pkfbfxl-vqtgdhiqo (Tdap) vaccine Need for prophylactic vaccination with combined tjtpeiglof-bwbduds-fyvkmwbgl (DTP) vaccine documented in this encounter Additional Health Concerns Active Problems Noted Date Diagnosed Date OB Reminders 03/18/2024 documented as of this encounter Care Teams Assembler Bonding Relationship Specialty Start Date End Date Carly Gatica MD PCP - General Family Medicine 11/23/20 documented as of this encounter
--- OUTSIDE RECORDS SUMMARY | 2024-07-03 12:32 | External Medical Summary | Summary of Care ---
Author Name Unknown Organization [facility] Address [address] [place] [address] Phone [phone] Care Team Providers Care Mold Laminator Name Role Phone Carly Gatica MD Primary Care Provid er Reason for Visit * Reason Onset Date Comments Advice 04/17/2024 Encounter Details Date Type Department Care Team ([facility] Contact Info) Description 04/17/2024 Telephone [facility] 226 [facility] [place] [address] Carly Gatica MD [address] [place] [address] Advice Allergies No known active allergiesdocumented as of this encounter (statuses as of 04/18/2024) Medications Proventil HFA 108 (90 Base) MCG/ACT [...] as of this encounter (statuses as of 04/18/2024) Active Problems Problem Noted Date Diagnosed Date [...] should be considered starting at 32 weeks. 23 weeks gestation of 03/11/2024 Overview (03/12/2024): Late to care Food insecurity 03/11/2024 Overview: Per [facility] Protocol High-risk 03/07/2024 Obesity in , [...] as of this encounter (statuses as of 04/18/2024) Resolved Problems Problem Noted Date Diagnosed Date Resolved Date Recurrent major depressive d isorder, in full [...] as of this encounter (statuses as of 04/18/2024) Immunizations Name Administration Dates Next Due DTaP [...] 03/07/2024 TDAP (age 10 and older)(Boostrix) 04/23/2015 documented as of this encounter Social History [...] have money to get more. Sometimes true [place] Depression Scale Answer Date Recorded [place] Depression Scale Total 11 03/07/2024 The thought [...] encounter Miscellaneous Notes * Telephone Encounter - Paige Bender LPN - 04/18/2024 4:29 PM EST Patient notified that this is fine, generic of mirilax * Telephone Encounter - Isabel Bradley OSA - 04/17/2024 6:10 PM EST Patient is calling in: Currently , can she take -Polyethylene Glyocl 3350. Does not have miralax documented in this encounter Plan of Treatment Upcoming Encounters Date Type Department Care Team (Late st Contact Info) Description 04/24/2024 1:30 PM EST Office Visit Gynecology/Obstetrics [facility] [address] [place] [address] BackerFaith CRNP [address] [place] [address] 05/03/2024 3:00 PM EST Office Visit Eyeglass Frames Polisher OB Maternal Medicine [facility] Nikky Mensah [address] [place] [address] [address] [place] [address] Britta Moore, DO [address] [place] [address] 05/03/2024 3:00 PM EST Imaging Maternal Medicine [facility] Nikky Mensah [address] [place] [address] Dr [address] [place] [address] 05/06/2024 9:40 AM EST [facility] [place] [address] [place] [phone] Carly Gatica MD [address] [place] [address] 06/07/2024 8:45 AM EST Office Visit Eyeglass Frames Polisher OB Maternal Medicine [facility] Nikky Mensah [address] [place] [address] [address] [place] [address] Britta Moore, DO [address] [place] [address] 06/07/2024 8:45 AM EST Imaging Maternal Medicine [facility] Nikky Mensah [address] [place] [address] [address] [place] [address] 06/28/2024 3:00 PM EDT Office Visit Eyeglass Frames Polisher OB Maternal Medicine [facility] Nikky Mensah [address] [place] [address] [address] [place] [address] Britta Moore, DO [address] [place] [address] 06/28/2024 3:00 PM EDT Imaging Maternal Medicine [facility] Nikky Mensah [address] [place] [address] [address] [facility] [address] 08/19/2024 6:00 PM EDT Office Visit [facility] [place] [facility] [place] [address] [facility] [place] [phone] Carly Gatica MD [address] [facility] [place] [address] Health Maintenance Due Date Last Done Comments [...] Screen 03/07/202508/2023, 10/30/2023, 12/21/2020, Additional history exists DTap/Tdap Vaccines (6 - Td o r Tdap) 04/23/2025 04/23/2015, 07/07/2008, 12/18/2003, Additional history exists Pap Smear 10/29/2026 10/30/2023 Hepatitis B Vaccine Completed 03/06/2003, 2002, 2002 [...] this encounter Medical Devices Implanted Type Area Shackler Device Identifier Shelf Expiration Date Model / Serial / Lot Btb Tightrope - [id number] Implanted:Qty: 1 on 11/12/2019 by Christopher Brennan DO at OR [facility] Right: Knee [employer] 01/01/2024 AR-1588BTB / / [id number] Tightrope Abs Implant, Open - [id number] Implanted:Qty: 1 on 11/12/2019 by Christopher Brennan DO at OR [facility] Right: Knee [employer] 01/01/2024 AR-1588TN-1 / / [id number] 7.5-10.5mm Graftlink Allograft, Frozen Graft Implanted:Qty: 1 on 11/12/2019 by Christopher Brennan DO at OR [facility] Right: Knee [employer] [id number] 09/01/2022 [facility] / [id number] 2 / LOT NA Tightrope Abs Button Rnd 11mm - [id number] Implanted:Qty: 1 on 11/12/2019 by Christopher Brennan DO at OR [facility] Right: Knee [employer] 08/31/2024 AR-1588TB-3 / / [id number] documented as of this encounter Additional Health Concerns Active Problems Noted Date Diagnosed Date OB Reminders 03/18/2024 documented as of this encounter Care Teams Mold Laminator Relationship Specialty Start Date End Date Carly Gatica MD PCP - General Family Medicine 11/23/20 documented as of this encounter
--- OUTSIDE RECORDS SUMMARY | 2024-07-03 12:32 | External Medical Summary | Summary of Care ---
Author Name Unknown Organization [facility] Address [address] [facility] [place] [address] Phone [phone] Care Team Providers Care Ed Case Manager Name Role Phone Carly Gatica MD Primary Care Provid er Reason for Visit * Reason Onset Date Comments Advice 05/06/[address] Patel er Encounter Details Date Type Department Care Team (Late st Contact Info) Description 05/06/2024 Telephone Gynecology/Obstetrics, [address] [place] [address] Joey Henley MD [address] [place] [address] Advice (Rev with Dr. Vail) Allergies No [...] 32 weeks. Food insecurity 03/11/2024 Overview: Per [facility] Protocol High-risk 03/07/2024 Obesity in , [...] have money to get more. Sometimes true [place] Depression Scale Answer Date Recorded [place] Depression Scale Total 11 03/07/2024 The thought [...] with water as well. Please review with tooth cutter pinion provider. Cody's pt. documented in this encounter Plan of Treatment Upcoming Encounters Date Type Department Care Team (Late st Contact Info) Description 05/08/2024 1:45 PM EST Office Visit Gynecology/Obstetrics [facility] 132 [facility] [place] [address] Faith Flood CRNP 132 [facility] [place] [address] 05/09/2024 2:30 PM EST Cardiac Studies Cardiac Studies, [facility] [address] [facility] [place] [address] 05/28/2024 3:00 PM EST Office Visit Gynecology/Obstetrics [facility] 132 [facility] [place] [address] Joey Henley MD 132 [facility] [place] [address] 06/07/2024 8:45 AM EST Office Visit Health Information Coder OB Maternal Medicine [facility] Nikky Mensah [address] [place] [address] [address] [place] [address] Alex Harris MD [address] [place] [address] 06/07/2024 8:45 AM EST Imaging Maternal Medicine [facility] Nikky Mensah [address] [place] [address] [address] [place] [address] 06/28/2024 3:00 PM EDT Office Visit Health Information Coder OB Maternal Medicine [facility] Nikky Mensah [address] [place] [address] [address] [place] [address] Britta Moore DO [address] [place] [address] 06/28/2024 3:00 PM EDT Imaging Maternal Medicine [facility] Nikky Mensah [address] [place] [address] Dr [address] [place] [address] 08/19/2024 6:00 PM EDT Office Visit [facility] [address] [place] [phone] Carly Gatica MD [address] [place] [address] Health Maintenance Due Date Last Done Comments [...] this encounter Medical Devices Implanted Type Area Administrative Analyst Device Identifier Shelf Expiration Date Model / Serial / Lot Btb Juan - [id number] Implanted:Qty: 1 on 11/12/2019 by Christopher Brennan DO at OR [facility] Right: Knee [employer] 01/01/2024 AR-1588BTB / / [id number] Tightrope Abs Implant, Open - [id number] Implanted:Qty: 1 on 11/12/2019 by Christopher Brennan DO at OR [facility] Right: Knee [employer] 01/01/2024 AR-1588TN-1 / / [id number] 7.5-10.5mm Graftlink Allograft, Frozen Graft Implanted:Qty: 1 on 11/12/2019 by Christopher Brennan DO at OR [facility] Right: Knee [employer] [id number] 09/01/2022 REPLACED BY [facility] / [id number] 2 / LOT NA Tightrope Abs Button Rnd 11mm - [id number] Implanted:Qty: 1 on 11/12/2019 by Christopher Brennan DO at OR [facility] Right: Knee [employer] 08/31/2024 AR-1588TB-3 / / [id number] documented as of this encounter Additional Health Concerns Active Problems Noted Date Diagnosed Date OB Reminders 03/18/2024 documented as of this encounter Care Teams Ed Case Manager Relationship Specialty Start Date End Date aCrly Gatica MD PCP - General Family Medicine 11/23/20 documented as of this encounter
--- OUTSIDE RECORDS SUMMARY | 2024-07-03 12:32 | External Medical Summary ---
Author Name Unknown Address Unknown Organization K0G[facility] [place] [address] Laboratory Report Ordering Provider Test Date Status JESSE ALVAREZ 05/08/2024 13:07:00 Final Observation Date Value Abnormality Reference (Units ) Status Color of Urine by Auto 05/08/2024 13:07:00 Yellow Light Yellow, Yellow Final Clarity, Urine 05/08/2024 13:07:00 Clear Clear Final Glucose [Mass/volume] in Urine by Automated test strip 05/08/2024 13:07:00 Negative Negative (mg/dL) Final Bilirubin.total [Presence] in Urine by Automated test strip 05/08/2024 13:07:00 Negative Negative Final Ketones [Mass/volume] in Urine by Automated test strip 05/08/2024 13:07:00 Negative Negative (mg/dL) Final Specific gravity, Urine 05/08/2024 13:07:00 1.020 1.003-1.030 Final Hemoglobin [Presence] in Urine by Automated test strip 05/08/2024 13:07:00 Negative Negative Final pH, Urine 05/08/2024 13:07:00 7.5 5.0, 5.5, 6.0, 6.5, 7.0, 7.5 (units) Final Protein [Mass/volume] in Urine by Automated test strip 05/08/2024 13:07:00 Negative Negative (mg/dL) Final Urobilinogen, Urine 05/08/2024 13:07:00 0.2 0.2, 1.0 (mg/dL) Final Nitrite [Presence] in Urine by Automated test strip 05/08/2024 13:07:00 Negative Negative Final Leukocyte esterase [Presence] in Urine by Automated test strip 05/08/2024 13:07:00 Moderate Abnormal Negative Final Performing Location [facility] [place] [address]
--- OUTSIDE RECORDS SUMMARY | 2024-07-03 12:32 | External Medical Summary | Summary of Care ---
Author Name Unknown Organization [facility] Address [address] [place] [address] Phone [phone] Care Team Providers Care Pig Caster Name Role Phone Carly Gatica MD Primary Care Provid er Encounter Details Date Type Department Care Team (Late Contact Info) Description 05/03/2024 3:00 PM EST Office Visit [facility]ky Mensah [address] [place] [address] Dr [address] [place] [address] Britta Moore, DO [address] [place] [address] Obesity in , antepartum*; Hypertensive left ventricular hypertrophy, without heart failure; Ultrasound for screening for growth restriction; 30 weeks gestation of Allergies No known active allergiesdocumented as of this encounter (statuses as of 05/03/2024) Medications Proventil HFA 108 (90 Base) MCG/ACT [...] as of this encounter (statuses as of 05/03/2024) Active Problems Problem Noted Date Diagnosed Date [...] 32 weeks. Food insecurity 03/11/2024 Overview: Per [facility] Protocol High-risk 03/07/2024 Obesity in , [...] as of this encounter (statuses as of 05/03/2024) Resolved Problems Problem Noted Date Diagnosed Date [...] as of this encounter (statuses as of 05/03/2024) Immunizations Name Administration Dates Next Due DTaP [...] have money to get more. Sometimes true [place] Depression Scale Answer Date Recorded [place] Depression Scale Total 11 03/07/2024 The thought [...] of this encounter Progress Notes * Britta Moore DO - 05/03/2024 3:22 PM EST Gerard presented today at 30w4d for an ultrasound for the following indications: Obesity in , antepartum Hypertensive left ventricular hypertrophy, without heart failure Assessment & Plan: Echocardiogram ordered 03/13 but not yet completed. Appears to be scheduled 05/09/24. Ultrasound for screening for growth restriction 30 weeks gestation of Ultrasound summary: Patient presented at 30w 4d for growth assessment. Normal growth with EFW 1610 g at 40%ile. Normal BETSEY at 16.2 cm. Cephalic presentation. I reviewed the ultrasound images. Gerard was given the opportunity to meet with me if she had anyquestions. Please refer to the ultrasound report for additional details about today's ultrasound examination. RECOMMENDATIONS: Recommend follow up ultrasound with MFM in 4-6 weeks for growth secondary to above indications. See prior formal MFM consultation note. Thank you for allowing us to participate in the care of this patient. Please call with any questions. Britta Moore DO 05/03/2024 3:22 PM documented in this encounter Miscellaneous Notes * Assessment & Plan Note - Britta Moore DO - 05/03/2024 3:26 PM EST Associated Problem(s): Hypertensive left ventricular hypertrophy, without heart failure Echocardiogram ordered 03/13 but not yet completed. Appears to be scheduled 05/09/24. documented in this encounter Plan of Treatment Upcoming Encounters Date Type Department Care Team (Late st Contact Info) Description 05/06/2024 9:40 AM EST Office [facility] [place] [facility] [address] [facility] [place] [phone] Carly Gatica MD [address] [facility] [place] [address] 05/08/2024 1:45 PM EST Office Visit Gynecology/Obstetrics [facility] [address] [facility] [place] [address] Faith Flood CRNP [address] [facility] [place] [address] 05/09/2024 2:30 PM EST Cardiac Studies Cardiac Studies, [facility] [address] [facility] [place] [address] 05/28/2024 3:00 PM EST Office Visit Gynecology/Obstetrics [facility] [address] [facility] [place] [address] Joey Henley MD [address] [facility] [place] [address] 06/07/2024 8:45 AM EST Office Visit D[facility] Up Person OB Maternal Medicine [facility] Nikky Mensah [address] [place] [address] Dr [address] [place] [address] Britta Moore DO [address] [facility] [place] [address] 06/07/2024 8:45 AM EST Imaging Maternal Medicine [facility] Nikky Mensah [address] [place] [address] [address] [place] [address] 06/28/2024 3:00 PM EDT Office Visit [facility] Person [facility] Nikky Mensah [address] [place] [address] [address] [place] [address] TeresaBritta, DO [address] [facility] [place] [address] 06/28/2024 3:00 PM EDT [facility] Nikky Mensah [address] [place] [address] [address] [place] [address] 08/19/2024 6:00 PM EDT Office Visit [facility] [address] [facility] [place] [phone] Carly Gatica MD [address] [place] [phone] Health Maintenance Due Date Last Done Comments [...] this encounter Medical Devices Implanted Type Area Nocturnist Physician Device Identifier Shelf Expiration Date Model / Serial / Lot Btb Tightrope - [id number] Implanted:Qty: 1 on 11/12/2019 by Christopher Brennan DO at OR [facility] Right: Knee [employer] 01/01/2024 AR-1588BTB / / [id number] Tightrope Abs Implant, Open - [id number] Implanted:Qty: 1 on 11/12/2019 by Christopher Brennan DO at OR [facility] Right: Knee [employer] 01/01/2024 AR-1588TN-1 / / [id number] 7.5-10.5mm Graftlink Allograft, Frozen Graft Implanted:Qty: 1 on 11/12/2019 by Christopher Brennan DO at OR [facility] Right: Knee [employer] [id number] 09/01/2022 [facility] / [id number] 2 / LOT NA Tightrope Abs Button Rnd 11mm - [id number] Implanted:Qty: 1 on 11/12/2019 by Christopher Brennan DO at OR [facility] Right: Knee [employer] 08/31/2024 AR-1588TB-3 / / [id number] documented as of this encounter Visit Diagnoses [...] ultrasonics 30 weeks gestation of state, incidental documented in this encounter Additional Health Concerns Active Problems Noted Date Diagnosed Date OB Reminders 03/18/2024 documented as of this encounter Care Teams Pig Caster Relationship Specialty Start Date End Date Carly Gatica MD PCP - General Family Medicine 11/23/20 documented as of this encounter
--- OUTSIDE RECORDS SUMMARY | 2024-07-03 12:32 | External Medical Summary | Summary of Care ---
Author Name Unknown Organization [facility] Address [address] [facility] [place] [address] Phone [phone] Care Team Providers Care Yard Pipe Grader Name Role Phone Carly Gatica MD Primary Care Provid er Reason for Visit * Reason Onset Date Comments Advice 05/06/[address] Patel er Encounter Details Date Type Department Care Team (Late st Contact Info) Description 05/06/2024 Telephone Gynecology/Obstetrics, [address] [place] [address] Joey Henley MD [address] [facility] [place] [address] Advice (Rev with Dr. Vail) Allergies No [...] 32 weeks. Food insecurity 03/11/2024 Overview: Per [facility] Protocol High-risk 03/07/2024 Obesity in , [...] have money to get more. Sometimes true [place] Depression Scale Answer Date Recorded [place] Depression Scale Total 11 03/07/2024 The thought [...] with water as well. Please review with iron and steel work supervisor provider. Cody's pt. documented in this encounter Plan of Treatment Upcoming Encounters Date Type Department Care Team (Late st Contact Info) Description 05/08/2024 1:45 PM EST Office Visit Gynecology/Obstetrics [facility] [address] [facility] [place] [address] Faith Flood CRNP [address] [facility] [place] [address] 05/09/2024 2:30 PM EST Cardiac Studies Cardiac Studies, [facility] [address] [facility] [place] [address] 05/28/2024 3:00 PM EST Office Visit Gynecology/Obstetrics [facility] [address] [facility] [place] [address] Joey Henley MD [address] [facility] [place] [address] 06/07/2024 8:45 AM EST Office Visit [employer] [facility] Maternal [facility] Nikky Mensah [address] [place] [address] [address] [place] [address] Alex Harris MD [address] [place] [address] 06/07/2024 8:45 AM EST Imaging Maternal Medicine [facility] Nikky Mensah [address] [place] [address] [address] [place] [address] 06/28/2024 3:00 PM EDT Office Visit [employer] [facility] Nikky Mensah [address] [place] [address] [address] [place] [address] Britta Moore DO [address] [place] [address] 06/28/2024 3:00 PM EDT Imaging Maternal Medicine [facility] Nikky Mensah [address] [place] [address] Dr [address] [place] [address] 08/19/2024 6:00 PM EDT Office Visit [facility] [address] [place] [phone] Carly Gatica MD [address] [place] [address] Health Maintenance Due Date Last Done Comments [...] this encounter Medical Devices Implanted Type Area Remarketing Rep Device Identifier Shelf Expiration Date Model / Serial / Lot Btb Juan - [id number] Implanted:Qty: 1 on 11/12/2019 by Christopher Brennan DO at OR [facility] Right: Knee [employer] 01/01/2024 AR-1588BTB / / [id number] Tightrope Abs Implant, Open - [id number] Implanted:Qty: 1 on 11/12/2019 by Christopher Brennan DO at OR [facility] Right: Knee [employer] 01/01/2024 AR-1588TN-1 / / [id number] 7.5-10.5mm Graftlink Allograft, Frozen Graft Implanted:Qty: 1 on 11/12/2019 by Christopher Brennan DO at OR [facility] Right: Knee [employer] [id number] 09/01/2022 [facility] / [id number] 2 / LOT NA Tightrope Abs Button Rnd 11mm - [id number] Implanted:Qty: 1 on 11/12/2019 by Christopher Brennan DO at OR [facility] Right: Knee [employer] 08/31/2024 AR-1588TB-3 / / [id number] documented as of this encounter Additional Health Concerns Active Problems Noted Date Diagnosed Date OB Reminders 03/18/2024 documented as of this encounter Care Teams Yard Pipe Grader Relationship Specialty Start Date End Date Carly Gatica MD PCP - General Family Medicine 11/23/20 documented as of this encounter
--- OUTSIDE RECORDS SUMMARY | 2024-07-03 12:33 | External Medical Summary ---
Author Name Unknown Address Unknown Organization K01:[facility] - [address] [place] [address] Laboratory Report Ordering Provider Test Date Status DMITRY LAZARO 04/10/2024 16:41:02 Final Observation Date Value Abnormality Reference (Units ) Status Glucose [Moles/volume] in Serum or Plasma --1 hour post 50 g glucose PO 04/10/2024 16:41:02 91 70-129 (mg/dL) Final Performing Location [facility] - [address] [place] [address]
--- OUTSIDE RECORDS SUMMARY | 2024-07-03 12:33 | External Medical Summary | Summary of Care ---
Author Name Unknown Organization [facility] Address [address] [place] [address] Phone [phone] Care Team Providers Care Presser All Around Name Role Phone Carly Gatica MD Primary Care Provid er Reason for Visit * Reason Comments Non Stress Test Return Visit Encounter Details Date Type Department Care Team ([facility] Contact Info) Description 04/16/2024 2:45 PM EST Office Visit Gynecology/Obstetric s [facility] [address] [place] [address] Poornima Freeman CRNP [address] [place] [address] Ayala, Non Stress Tests Kim [address] [place] [address] Vaginal bleeding in *; Hypertensive left ventricular hypertrophy, without heart failure; IRAJ (generalized anxiety disorder); High-risk in third trimester; Obesity in , antepartum; History of hypertension; Marijuana use during ; 23 weeks gestation of ; Mild intermittent asthma with exacerbation Allergies No known active allergiesdocumented as of this encounter (statuses as of 04/16/2024) Medications Proventil HFA 108 (90 Base) MCG/ACT [...] as of this encounter (statuses as of 04/16/2024) Active Problems Problem Noted Date Diagnosed Date [...] to care Food insecurity 03/11/2024 Overview: Per [facility] Protocol High-risk 03/07/2024 Obesity in , [...] as of this encounter (statuses as of 04/16/2024) Resolved Problems Problem Noted Date Diagnosed Date [...] as of this encounter (statuses as of 04/16/2024) Immunizations Name Administration Dates Next Due DTaP [...] have money to get more. Sometimes true [place] Depression Scale Answer Date Recorded [place] Depression Scale Total 11 03/07/2024 The thought [...] Sign Reading Time Taken Comments Blood Pressure 124/80 04/16/2024 11:34 AM EST Pulse - - Temperature - - Respiratory Rate - - Oxygen Saturation - - Inhaled Oxygen Concentration - - Weight 120.5 kg (265 lb 9.6 oz) 025 11:34 AM EST Height - - Body Mass Index 40.38 03/07/2024 2:30 PM EST documented in this encounter Progress Notes * Poornima Freeman CRNP - 04/16/2024 11:44 AM EST 28w1d Here for acute visit. Called this morning with vaginal bleeding. Has not gone to the bathroom sincethat time to know if bleeding continues. Also stated on the phone that she hadn't felt baby move, but after eating breakfast this has improved. Per Dr. Stewart, pt to have NST and cervical check. She voices no other complaints today. SSE done: no blood in vagina. Cervix normal in appearance. Cervix C/T/L. Medical Associate Documentation Provider requested benefit director. Name of benefit director: Rebeca ASSESSMENT assessment with Non-stress Test completed on 04/16/2024 at 28.1weeks gestation for indication of vaginal bleeding in , decreased FM heart baseline: 140 bpm Variability: Moderate Decelerations: absent Accelerations: present Contractions: None NST start time: 1131 NST stop time: 1156 NST strip reviewed, interpreted, and approved by OB provider, KENNETH Hernandez . NST strip stored in clinic storage file Pt documented 45 movements on NST. * Rebeca Otto CMA - 04/16/2024 11:34 AM EST 28w1d Pt called triage this morning for bleeding. Small clots on toilet paper when wiping. Has felt baby move. Per Dr Stewart, pt in office for NST and cervical check. documented in this encounter Plan of Treatment Upcoming Encounters Date Type Department Care Team (Late st Contact Info) Description 04/24/2024 1:30 PM EST Office Visit Gynecology/Obstetrics [facility] [address] [place] [address] Faith Flood CRNP [address] [place] [address] 05/03/2024 3:00 PM EST Office Visit Gre[employer] Examiner OB Maternal Medicine [facility] Nikky Mensah [address] [place] [address] Dr [address] [place] [address] Britta Moore, DO [address] [place] [address] 05/03/2024 3:00 PM EST Imaging Maternal Medicine [facility] Nikky Mensah [address] [place] [address] Dr [address] [place] [address] 05/06/2024 9:40 AM EST [facility] [address] [facility] [place] [address] Carly Gatica MD [address] [facility] [place] [address] 06/07/2024 8:45 AM EST Office Visit [employer] [facility] Maternal Medicine [facility] Nikky Mensah [address] [place] [address] [address] [place] [address] Britta Moore, DO [address] [place] [address] 06/07/2024 8:45 AM EST Imaging Maternal Medicine [facility] Nikky Mensah [address] [place] [address] [address] [place] [address] 06/28/2024 3:00 PM EDT Office Visit [facility] [facility] Nikky Mensah [address] [place] [address] [address] [place] [address] Britta Moore, DO [address] [place] [address] 06/28/2024 3:00 PM EDT Imaging Maternal [facility] Nikky Mensah [address] [place] [address] [address] [place] [address] 08/19/2024 6:00 PM EDT Office Visit [facility] [address] [place] [address] Carly Gatica MD [address] [place] [address] Health Maintenance Due Date Last Done Comments [...] this encounter Medical Devices Implanted Type Area Human Resources Administrator Device Identifier Shelf Expiration Date Model / Serial / Lot Btb Tightrope - [id number] Implanted:Qty: 1 on 11/12/2019 by Christopher Brennan DO at OR [facility] Right: Knee [employer] 01/01/2024 AR-1588BTB / / [id number] Tightrope Abs Implant, Open - [id number] Implanted:Qty: 1 on 11/12/2019 by Christopher Brennan DO at OR [facility] Right: Knee [employer] 01/01/2024 AR-1588TN-1 / / [id number] 7.5-10.5mm Graftlink Allograft, Frozen Graft Implanted:Qty: 1 on 11/12/2019 by Christopher Brennan DO at OR [facility] Right: Knee [employer] [id number] 09/01/2022 [facility] / [id number] 2 / LOT NA Tightrope Abs Button Rnd 11mm - [id number] Implanted:Qty: 1 on 11/12/2019 by Christopher Brennan DO at OR [facility] Right: Knee [employer] 08/31/2024 AR-1588TB-3 / / [id number] documented as of this encounter Visit Diagnoses [...] or the puerperium, antepartum condition or complication Vaginal bleeding in - Primary Unspecified antepartum hemorrhage, unspecified as to episode of care Hypertensive left ventricular hypertrophy, without heart failure IRAJ (generalized anxiety disorder) Generalized anxiety disorder High-risk in third trimester Obesity in , antepartum Obesity complicating , childbirth, or the puerperium, antepartum condition or complication History of hypertension Personal history of other diseases of circulatory system Marijuana use during 23 weeks gestation of state, incidental Mild intermittent asthma with exacerbation Unspecified asthma, with exacerbation documented in this encounter Additional Health Concerns Active Problems Noted Date Diagnosed Date OB Reminders 03/18/2024 documented as of this encounter Care Teams Presser All Around Relationship Specialty Start Date End Date Carly Gatica MD PCP - General Family Medicine 11/23/20 documented as of this encounter
--- OUTSIDE RECORDS SUMMARY | 2024-07-03 12:33 | External Medical Summary | Summary of Care ---
Author Name Unknown Organization [facility] Address [address] [place] [address] Phone [phone] Care Team Providers Care Relief Salesperson Name Role Phone Carly Gatica MD Primary Care Provid er Reason for Visit * Reason Comments Return Visit Encounter Details Date Type Department Care Team ([facility] Contact Info) Description 04/10/2024 3:15 PM EST Office Visit Gynecology/Obstetric s Samra Villarreals [address] [facility] [place] [address] Poornima Freeman CRNP [address] [facility] [place] [address] High-risk in second trimester*; Hypertensive left ventricular hypertrophy, without heart failure; IRAJ (generalized anxiety disorder); Obesity in , antepartum; History of hypertension; Marijuana use during ; 23 weeks gestation of ; Mild intermittent asthma with exacerbation Allergies No known active allergiesdocumented as of this encounter (statuses as of 04/10/2024) Medications Proventil HFA 108 (90 Base) MCG/ACT [...] as of this encounter (statuses as of 04/10/2024) Active Problems Problem Noted Date Diagnosed Date [...] to care Food insecurity 03/11/2024 Overview: Per [facility] Protocol High-risk 03/07/2024 Obesity in , [...] diagnosed and had echocardiogram showing borederline LVH. Paipraveen has since lost weight, and her BPs [...] as of this encounter (statuses as of 04/10/2024) Resolved Problems Problem Noted Date Diagnosed Date [...] as of this encounter (statuses as of 04/10/2024) Immunizations Name Administration Dates Next Due DTaP [...] have money to get more. Sometimes true [place] Depression Scale Answer Date Recorded [place] Depression Scale Total 11 03/07/2024 The thought [...] Sign Reading Time Taken Comments Blood Pressure 128/78 04/10/2024 3:10 PM EST Pulse - - Temperature - - Respiratory Rate - - Oxygen Saturation - - Inhaled Oxygen Concentration - - Weight 121.5 kg (267 lb 12.8 oz) 04/10/2024 3:10 PM EST Height - - Body Mass Index 40.72 03/07/2024 2:30 PM EST documented in this encounter Progress Notes * Poornima Freeman CRNP - 04/10/2024 3:29 PM EST 27w2d Feeling well overall. Baby is active. Following with cardiology and MFM. Glucola today. Moving in with her mom on 04/14, sees this as a positive. Seeing WIC as well. KENNETH Hernandez * Rebeca Otto CMA - 04/10/2024 3:10 PM EST 27w2d + nausea with certain smells. Denies any concerns documented in this encounter Plan of Treatment Upcoming Encounters Date Type Department Care Team (Late st Contact Info) Description 04/24/2024 1:30 PM EST Office Visit Gynecology/Obstetrics Rossisaias Ayala [address] [place] [address] Faith Flood CRNP [address] [place] [address] 05/03/2024 3:00 PM EST Office Visit Project Finance Analyst OB Maternal Medicine [facility] [address], [place] [facility] [address] Britta Moore, DO [address] [place] [address] 05/03/2024 3:00 PM EST Imaging Maternal Medicine [facility] Nikky Mensah [address] [place] [address] Dr [address] [facility] [address] 05/06/2024 9:40 AM EST Office Visit [facility] [address] [facility] [place] [address] Carly Gatica MD 226 [place] [address] 06/07/2024 8:45 AM EST Office Visit Project Finance Analyst OB Maternal Medicine [facility] Rodrigue Mensah[address] [facility] [address] Britta Moore, DO [address] [place] [address] 06/07/2024 8:45 AM EST Imaging Maternal Medicine [facility] Nikky Mensah [address] [place] [address] Dr [address] [place] [address] 06/28/2024 3:00 PM EDT Office Visit Project Finance Analyst OB Maternal Medicine [facility] Nikky Mensah [address] [place] [address] Dr [address] [facility] [address] Britta Moore, DO [address] [place] [address] 06/28/2024 3:00 PM EDT Imaging Maternal Medicine [facility] Rodrigue Mensah[address] [facility] [address] 08/19/2024 6:00 PM EDT Office Visit [facility] [address] [facility] [place] [phone] Carly Gatica MD [address] [facility], [place] [phone] Scheduled Orders Name Type Priority Associated Diagnoses Orde r Schedule 50-G GESTATIONAL GLUCOSE, 1 HOUR Lab Routine High-risk in second trimester Expected: 04/10/2024 (Approximate), Expires: 04/10/2025 CBC WITH WBC DIFFERENTIAL AND ANEMIA REFLEX WORKUP Lab Routine High-risk in second trimester Expected: 04/10/2024 (Approximate), Expires: 04/10/2025 SYPHILIS ANTIBODY SCREEN WITH REFLEX TO RPR Lab Routine High-risk in second trimester Expected: 04/10/2024 (Approximate), Expires: 04/10/2025 Health Maintenance Due Date Last Done Comments [...] this encounter Medical Devices Implanted Type Area Ornament Stitcher Device Identifier Shelf Expiration Date Model / Serial / Lot Btb Tightrope - [id number] Implanted:Qty: 1 on 11/12/2019 by Christopher Brennan, DO at OR [facility] Right: Knee [employer] 01/01/2024 AR-1588BTB / / [id number] Tightrope Abs Implant, Open - [id number] Implanted:Qty: 1 on 11/12/2019 by Christopher Brennan DO at OR [facility] Right: Knee [employer] 01/01/2024 AR-1588TN-1 / / [id number] 7.5-10.5mm Graftlink Allograft, Frozen Graft Implanted:Qty: 1 on 11/12/2019 by Christopher Brennan DO at OR [facility] Right: Knee [employer] [id number] 09/01/2022 [facility] / [id number] 2 / LOT NA Tightrope Abs Button Rnd 11mm - [id number] Implanted:Qty: 1 on 11/12/2019 by Christopher Brennan DO at OR [facility] Right: Knee [employer] 08/31/2024 AR-1588TB-3 / / [id number] documented as of this encounter Visit Diagnoses [...] puerperium, antepartum condition or complication High-risk in second trimester- Primary Hypertensive left ventricular hypertrophy, without [...] documented as of this encounter Care Teams Relief Salesperson Relationship Specialty Start Date End Date Carly Gatica MD PCP - General Family Medicine 11/23/20 documented as of this encounter
--- OUTSIDE RECORDS SUMMARY | 2024-07-03 12:33 | External Medical Summary | Summary of Care ---
Author Name Unknown Organization [facility] Address [address] [place] [address] Phone [phone] Care Team Providers Care Mlt Name Role Phone Carly Gatica MD Primary Care Provid er Reason for Visit * Reason Onset Date Comments Manager Energy Documentation 04/15/2024 Encounter Details Date Type Department Care Team ([facility] Contact Info) Description 04/15/2024 Telephone [address] Pressman Obstetrics Maternal Medicine, [place] [address] [place], [place] [phone] Genet Mata, AUTOMOTIVE MACHINIST [address] [place] [address] Manager Energy Documentation Allergies No known active allergiesdocumented as of this encounter (statuses as of 04/15/2024) Medications Proventil HFA 108 (90 Base) MCG/ACT [...] as of this encounter (statuses as of 04/15/2024) Active Problems Problem Noted Date Diagnosed Date [...] to care Food insecurity 03/11/2024 Overview: Per [facility] Protocol High-risk 03/07/2024 Obesity in , [...] as of this encounter (statuses as of 04/15/2024) Resolved Problems Problem Noted Date Diagnosed Date [...] as of this encounter (statuses as of 04/15/2024) Immunizations Name Administration Dates Next Due DTaP [...] have money to get more. Sometimes true [place] Depression Scale Answer Date Recorded [place] Depression Scale Total 11 03/07/2024 The thought [...] Telephone Encounter - Genet Mata MSW - 04/15/2024 11:38 AM EST Telephone call received from pt Gerard. [facility] is unable to provide transportation for WIC appointments. Pt has a WIC appointment in [place] scheduled for 04/17 and does not have transportation.Already had to reschedule once before. SW spoke with [place], appointment must be in person as it is an intake appointment. First appointmentscan not be virtual. There is no [place] office. [place] [facility] needs letter confirming future dates and times of pt appointments in [place]. SW to fax letter to [facility]. documented in this encounter Plan of Treatment Upcoming Encounters Date Type Department Care Team (Late st Contact Info) Description 04/24/2024 1:30 PM EST Office Visit Gynecology/Obstetrics [facility] [address] [place] [address] BackerFaith CRNP [address] [place] [address] 05/03/2024 3:00 PM EST Office Visit 3Rd Pressman OB Maternal Medicine [facility] Nikky Mensah [address] [place] [address] Dr [address] [place] [address] Britta Moore, DO [address] [place] [address] 05/03/2024 3:00 PM EST Imaging Maternal Medicine [facility] Nikky Mensah [address] [place] [address] Dr [address] [place] [address] 05/06/2024 9:40 AM EST Office Visit Niels Brady [address] [place] [phone] Carly Gatica MD [address] [place] [address] 06/07/2024 8:45 AM EST Office Visit 3Rd Pressman OB Maternal Medicine [facility] Nikky Mensah [address] [place] [address] [address] [place] [address] Britta Moore, DO [address] [place] [address] 06/07/2024 8:45 AM EST Imaging Maternal Medicine [facility] Nikky Mensah [address] [place] [address] Dr [address] [place] [address] 06/28/2024 3:00 PM EDT Office Visit 3Rd Pressman OB [facility] Nikky Mensah [address] [place] [address] Dr [place] [address] [place] [address] Britta Moore, DO [address] [place] [address] 06/28/2024 3:00 PM EDT Imaging Maternal [facility] Nikky Mensah [address] [place] [address] [address] [place] [address] 08/19/2024 6:00 PM EDT [facility] [address] [place] [phone] Carly Gatica MD [address] [place] [address] Health Maintenance Due Date Last Done Comments [...] this encounter Medical Devices Implanted Type Area Pegger Device Identifier Shelf Expiration Date Model / Serial / Lot Btb Tightrope - [id number] Implanted:Qty: 1 on 11/12/2019 by Christopher Brennan DO at OR [facility] Right: Knee [employer] 01/01/2024 AR-1588BTB / / [id number] Tightrope Abs Implant, Open - [id number] Implanted:Qty: 1 on 11/12/2019 by Christopher Brennan DO at OR [facility] Right: Knee [employer] 01/01/2024 AR-1588TN-1 / / [id number] 7.5-10.5mm Graftlink Allograft, Frozen Graft Implanted:Qty: 1 on 11/12/2019 by Christopher Brennan DO at OR [facility] Right: Knee [employer] [id number] 09/01/2022 [facility] / [id number] 2 / LOT NA Tightrope Abs Button Rnd 11mm - [id number] Implanted:Qty: 1 on 11/12/2019 by Christopher Brennan DO at OR [facility] Right: Knee [employer] 08/31/2024 AR-1588TB-3 / / [id number] documented as of this encounter Additional Health Concerns Active Problems Noted Date Diagnosed Date OB Reminders 03/18/2024 documented as of this encounter Care Teams Mlt Relationship Specialty Start Date End Date Carly Gatica MD PCP - General Family Medicine 11/23/20 documented as of this encounter
--- OUTSIDE RECORDS SUMMARY | 2024-07-03 12:33 | External Medical Summary | Summary of Care ---
Author Name Unknown Organization [facility] Address [address] [place] [address] Phone [phone] Care Team Providers Care Marketing And Public Relations Manager Name Role Phone Carly Gatica MD Primary Care Provid er Encounter Details Date Type Department Care Team ([facility] Contact Info) Description 04/16/2024 Telephone Gynecology/Obstetrics [facility] [address] [place] [address] Nohelia William MD [address] [place] [address] Allergies No known active allergiesdocumented as of [...] to care Food insecurity 03/11/2024 Overview: Per [facility] Protocol High-risk 03/07/2024 Obesity in , [...] have money to get more. Sometimes true [place] Depression Scale Answer Date Recorded [place] Depression Scale Total 11 03/07/2024 The thought [...] Telephone Encounter - Paige Bender LPN - 04/16/2024 10:59 AM EST Patient returned call, will be here at 11:40. * Telephone Encounter - Paige Bender LPN - 04/16/2024 10:43 AM EST Called back to patient and let her know recommendations. [facility] and they need scheduled ahead of time. She took her and has felt 3 movements in the last 40 minutes. Has not had breakfast yet. Will continue to monitor movements and any further bleeding while arranging transport. She will call back to office. * Telephone Encounter - Nohelia William MD - 04/16/2024 10:22 AM EST Can she come to office for cervical check and NST? Thanks * Telephone Encounter - Paige Bender LPN - 04/16/2024 9:56 AM EST Patient currently 28w1d calling with bleeding. States it was with wiping when she woke up this morning. Looks like a small blood clots. Is there any pain associated with the bleeding? no Are you having any contractions? no Have you had a recent US ? 04/02 with MFM Placenta placement? Anterior, no previa No recent intercourse Patient has not felt movement yet this morning but just woke up. I directed her to get something for breakfast and do a kick count over the next hour. Problem List: Obesity Class II, Maternal hx left ventricular hypertophy, marijuana use, late to care documented in this encounter Plan of Treatment Upcoming Encounters Date Type Department Care Team (Late st Contact Info) Description 04/16/2024 2:45 PM EST Office Visit Gynecology/Obstetrics Samra Ayala [address] [place], [place] [address] Poornima Freeman CRNP [address] [place] [address] Ayala, Non Stress Tests Kim [address] [place] [address] 04/24/2024 1:30 PM EST Office Visit Gynecology/Obstetrics Samra Ayala [address] [place] [address] Faith Flood CRNP [address] [address] 05/03/2024 3:00 PM EST Office Visit Electric Shipyard Operator OB Maternal Medicine [facility] Nikky Mensah [address] [place] [address] Dr [address] [place] [address] Britta Moore, DO [address] [place] [address] 05/03/2024 3:00 PM EST Imaging Maternal Medicine [facility] Nikky Mensah [address] [place] [address] Dr [address] [place] [address] 05/06/2024 9:40 AM EST Office Visit [facility] [place] [facility] [address] [facility] [place] [phone] Carly Gatica MD 226 [facility] [place] [address] 06/07/2024 8:45 AM EST Office Visit Electric Shipyard Operator OB Maternal Medicine [facility] Nikky Mensah [address] [place] [address] [address] [place] [address] Britta Moore, DO [address] [place] [address] 06/07/2024 8:45 AM EST Imaging Maternal Medicine [facility] Nikky Mensah [address] [place] [address] Dr [address] [facility] [address] 06/28/2024 3:00 PM EDT Office Visit Electric Shipyard Operator OB Maternal Medicine [facility] Nikky Mensah [address] [place] [address] Dr [address] [place] [address] Britta Moore, DO [address] [place] [address] 06/28/2024 3:00 PM EDT Imaging [facility] Nikky Mensah [address] [place] [address] Dr [address] [facility] [address] 08/19/2024 6:00 PM EDT Office Visit [facility] [address] [facility] [place] [address] Carly Gatica MD 226 [facility] [place] [address] Health Maintenance Due Date Last Done Comments [...] this encounter Medical Devices Implanted Type Area Diamond Sizer And Grader Device Identifier Shelf Expiration Date Model / Serial / Lot Btb Tightrope - [id number] Implanted:Qty: 1 on 11/12/2019 by Christopher Brennan DO at OR [facility] Right: Knee [employer] 01/01/2024 AR-1588BTB / / [id number] Tightrope Abs Implant, Open - [id number] Implanted:Qty: 1 on 11/12/2019 by Christopher Brennan DO at OR [facility] Right: Knee [employer] 01/01/2024 AR-1588TN-1 / / [id number] 7.5-10.5mm Graftlink Allograft, Frozen Graft Implanted:Qty: 1 on 11/12/2019 by Christopher Brennan DO at OR [facility] Right: Knee [employer] [id number] 09/01/2022 [facility] / [id number] 2 / LOT NA Tightrope Abs Button Rnd 11mm - [id number] Implanted:Qty: 1 on 11/12/2019 by Christopher Brennan DO at OR [facility] Right: Knee [employer] 08/31/2024 AR-1588TB-3 / / [id number] documented as of this encounter Additional Health Concerns Active Problems Noted Date Diagnosed Date OB Reminders 03/18/2024 documented as of this encounter Care Teams Marketing And Public Relations Manager Relationship Specialty Start Date End Date Carly Gatica MD PCP - General Family Medicine 11/23/20 documented as of this encounter
--- OUTSIDE RECORDS SUMMARY | 2024-07-03 12:33 | External Medical Summary ---
Author Name Unknown Address Unknown Organization K01:[facility] - [address] [place] [address] Laboratory Report Ordering Provider Test Date Status UBALDO KIDD 04/10/2024 16:41:02 Final Observation Date Value Abnormality Reference (Units ) Status SYNC LEUKOCYTES IN BLOOD BY AUTOMATED COUNT 04/10/2024 16:41:02 12.25 Above high normal 4.00-10.80 (K/uL) Final Segs 04/10/2024 16:41:02 61.1 40.0-75.0 (%) Final Lymphs % 04/10/2024 16:41:02 27.9 18.0-42.0 (%) Final Monos 04/10/2024 16:41:02 8.7 1.0-11.0 (%) Final Eosinophils 04/10/2024 16:41:02 1.2 0.0-6.0 (%) Final Basos 04/10/2024 16:41:02 0.6 0.0-2.0 (%) Final Immature Granulocyte, Percent 04/10/2024 16:41:02 0.5 0.0-2.0 (%) Final Absolute Segs 04/10/2024 16:41:02 7.49 1.80-7.70 (K/uL) Final Lymphs, absolute 04/10/2024 16:41:02 3.42 1.00-4.80 (K/ul) Final Monos, Abs 04/10/2024 16:41:02 1.06 0.00-1.10 (K/uL) Final Eos, Abs 04/10/2024 16:41:02 0.15 0.00-0.70 (K/uL) Final Basos, Abs 04/10/2024 16:41:02 0.07 0.00-0.20 (K/uL) Final Immature Granulocytes, Number 04/10/2024 16:41:02 0.06 0.00-0.20 (K/uL) Final Performing Location [facility] - [address] [facility] [address]
--- OUTSIDE RECORDS SUMMARY | 2024-07-03 12:33 | External Medical Summary | Summary of Care ---
Author Name Unknown Organization [facility] Address [address] [place] [address] Phone [phone] Care Team Providers Care Signs Sales Representative Name Role Phone Carly Gatica MD Primary Care Provid er Reason for Visit * Reason Comments Outpatient Testing Encounter Details Date Type Department Care Team ([facility] Contact Info) Description 04/10/2024 3:40 PM EST Laboratory Laboratory, [facility] [address] [place] [phone] [facility] [address] [place] [address] Obesity in , antepartum; High-risk in second trimester Allergies No known active allergiesdocumented as of [...] to care Food insecurity 03/11/2024 Overview: Per [facility] Protocol High-risk 03/07/2024 Obesity in , [...] have money to get more. Sometimes true [place] Depression Scale Answer Date Recorded [place] Depression Scale Total 11 03/07/2024 The thought [...] on file documented as of this encounter Plan of Treatment Upcoming Encounters Date Type Department Care Team (Late st Contact Info) Description 04/24/2024 1:30 PM EST Office Visit Gynecology/Obstetrics Samra Ayala [address] [facility] [place] [address] Faith Flood CRNP [address] [place] [address] 05/03/2024 3:00 PM EST Office Visit Desktop Operator OB Maternal Medicine [facility] Nikky Mensah [address] [place] [address] Dr [address] [place] [address] Britta Moore, DO [address] [place] [address] 05/03/2024 3:00 PM EST Imaging Maternal Medicine [facility] Nikky Mensah [address] [place] [address] [address] [facility] [address] 05/06/2024 9:40 AM EST Office Visit [facility] [address] [place] [phone] Carly Gatica MD [address] [place] [address] 06/07/2024 8:45 AM EST Office Visit Desktop Operator OB Maternal Medicine [facility] Nikky Mensah [address] [place] [address] [address] [place] [address] Britta Moore, DO [address] [place] [address] 06/07/2024 8:45 AM EST Imaging Maternal Medicine [facility] Nikky Mensah [address] [place] [address] [address] [place] [address] 06/28/2024 3:00 PM EDT Office Visit Desktop Operator OB Maternal Medicine [facility] Nikky Mensah [address] [place] [address] [address] [place] [address] Britta Moore, DO [address] [place] [address] 06/28/2024 3:00 PM EDT Imaging [facility] Nikky Mensah [address] [place] [address] Dr [address] [place] [address] 08/19/2024 6:00 PM EDT Office Visit [facility] [address] [place] [address] Carly Gatica MD [address] [place] [address] Pending Results Name Type Priority Associated Diagnoses Date /Time 50-G GESTATIONAL GLUCOSE, 1 HOUR Lab Routine Obesity in , antepartum 04/10/2024 4:41 PM EST CBC WITH WBC DIFFERENTIAL AND ANEMIA REFLEX WORKUP Lab Routine High-risk in second trimester 04/10/2024 4:41 PM EST SYPHILIS ANTIBODY SCREEN WITH REFLEX TO RPR Lab Routine High-risk in second trimester 04/10/2024 4:41 PM EST ANEMIA CBC Lab Routine High-risk in second trimester 04/10/2024 4:41 PM EST DIFFERENTIAL, AUTOMATED Lab Routine High-risk in second trimester 04/10/2024 4:41 PM EST ANEMIA REFLEX CHEMISTRY HOLD Lab Routine High-risk in second trimester 04/10/2024 4:41 PM EST SYPHILIS ANTIBODY SCREEN Lab Routine High-risk in second trimester 04/10/2024 4:41 PM EST Health Maintenance Due Date Last Done Comments [...] this encounter Medical Devices Implanted Type Area Closing Specialist Device Identifier Shelf Expiration Date Model / Serial / Lot Btb Tightrope - [id number] Implanted:Qty: 1 on 11/12/2019 by Christopher Brennan, DO at OR [facility] Right: Knee [employer] 01/01/2024 AR-1588BTB / / [id number] Tightrope Abs Implant, Open - [id number] Implanted:Qty: 1 on 11/12/2019 by Christopher Brennan DO at OR [facility] Right: Knee [employer] 01/01/2024 AR-1588TN-1 / / [id number] 7.5-10.5mm Graftlink Allograft, Frozen Graft Implanted:Qty: 1 on 11/12/2019 by Christopher Brennan DO at OR [facility] Right: Knee [employer] [id number] 09/01/2022 [facility] / [id number] 2 / LOT NA Tightrope Abs Button Rnd 11mm - [id number] Implanted:Qty: 1 on 11/12/2019 by Christopher Brennan DO at OR [facility] Right: Knee [employer] 08/31/2024 NV-1588TB-3 / / [id number] documented as of this encounter Visit Diagnoses [...] antepartum condition or complication Obesity in , antepartum Obesity complicating , childbirth, or the puerperium, antepartum condition or complication High-risk in second trimester documented in this encounter Additional Health Concerns Active Problems Noted Date Diagnosed Date OB Reminders 03/18/2024 documented as of this encounter Care Teams Signs Sales Representative Relationship Specialty Start Date End Date Carly Gatica MD PCP - General Family Medicine 11/23/20 documented as of this encounter
--- OUTSIDE RECORDS SUMMARY | 2024-07-03 12:33 | External Medical Summary ---
Author Name Unknown Address Unknown Organization K01:LABORATORY [facility] - [address] [place] [address] Laboratory Report Ordering Provider Test Date Status UBALDO KIDD 04/10/2024 16:41:02 Final Observation Date Value Abnormality Reference (Units ) Status Treponema pallidum Ab [Presence] in Serum by Immunoassay 04/10/2024 16:41:02 Nonreactive Nonreactive Final No serologic evidence of syp hilis. No additional testing clinicially indicated at this time. Consider repeat testing in 2-4 weeks if acute or primary syphilis is suspected. Performing Location LABORATORY [facility] - [address] [place] [address]
--- OUTSIDE RECORDS SUMMARY | 2024-07-03 12:33 | External Medical Summary | Summary of Care ---
Author Name Unknown Organization [facility] Address [address] [place] [address] Phone [phone] Care Team Providers Care Piler Name Role Phone Carly Gatica MD Primary Care Provid er Encounter Details Date Type Department Care Team ([facility] Contact Info) Description 04/02/2024 10:45 AM EST Office Visit Legal Receptionist OB Maternal Medicine [facility] Nkiky Mensah [address] [place] [address] Dr [address] [place] [address] Alex Harris MD [address] [place] [address] Morbid obesity due to excess calories (HCC)*; BMI 45.0-49.9, adult (HCC); Obesity in , antepartum Allergies No known active allergiesdocumented as of this encounter (statuses as of 04/02/2024) Medications Proventil HFA 108 (90 Base) MCG/ACT [...] hypertension For monitoring blood pressure 1 Each 12/05/202 4 Active documented as of this encounter (statuses as of 04/02/2024) Active Problems Problem Noted Date Diagnosed Date [...] to care Food insecurity 03/11/2024 Overview: Per [email or web address] Protocol High-risk 03/07/2024 Obesity in , [...] as of this encounter (statuses as of 04/02/2024) Resolved Problems Problem Noted Date Diagnosed Date [...] as of this encounter (statuses as of 04/02/2024) Immunizations Name Administration Dates Next Due DTaP [...] 03/07/2024,01/28/2005,03/06/2003 TDAP (age 10 and older)(Boostrix) 04/23/2015 documented [...] have money to get more. Sometimes true [place] Depression Scale Answer Date Recorded [place] Depression Scale Total 11 03/07/2024 The thought [...] Progress Notes * Alex Harris MD - 04/02/2024 10:43 AM EST MATERNAL MEDICINE VISIT Gerard Dunbar is at 26w1d who presents to [facility] for an ultrasound and follow- up of her high riskpregnancy. The patient is currently 26 weeks 1 day gestation with chronic hypertension on no medication and class 2 obesity. The patient has been diagnosed with left ventricular hypertrophy due to an early diagnosis of high blood pressure. She lost weight and is currently off of medication. She saw Cardiologyon March 19 and for specifics, I refer you to the note in the chart. At that time, it was recommended that she had a follow-up maternal echocardiogram. She comes in for an evaluation of anatomy. She is being seen today by Maternal- Medicine for the following reasons: Problem List Items Addressed This Visit Morbid obesity due to excess calories (HCC) - Primary (Chronic) Relevant Orders [facility] US PREG FOLLOW UP EACH FETUS BMI 45.0-49.9, adult (HCC) (Chronic) Relevant Orders [facility] US PREG FOLLOW UP EACH FETUS Obesity in , antepartum I reviewed the ultrasound with her. The anatomy that was visualized appears unremarkable and the overall estimated weight is consistent with the 25th percentile for the gestational age. The amniotic fluid volume is normal at 13 cm and the fetus is in the vertex presentation. Relevant Orders MFM US PREG FOLLOW UP EACH FETUS RECOMMENDATIONS: Recommend surveillance starting at 37 weeks secondary to class II obesity. Recommend follow up ultrasound with MFM in 4 weeks for growth secondary to class II obesity. Thank you for allowing us to participate in the care of this patient. Please call with any questions. Alex Harris MD 04/02/2024 10:43 AM documented in this encounter Miscellaneous Notes * Assessment & Plan Note - Alex Harris MD - 04/02/2024 11:26 AM EST Associated Problem(s): Obesity in , antepartum I reviewed the ultrasound with her. The anatomy that was visualized appears unremarkable and the overall estimated weight is consistent with the 25th percentile for the gestational age. The amniotic fluid volume is normal at 13 cm and the fetus is in the vertex presentation. documented in this encounter Plan of Treatment Upcoming Encounters Date Type Department Care Team (Late st Contact Info) Description 04/10/2024 3:15 PM EST Office Visit Gynecology/Obstetrics Samra Ayala [address] [place] [address] Poornima Freeman CRNP [address] [place] [address] 05/03/2024 3:00 PM EST Office Visit Legal Receptionist OB Maternal Medicine [facility] Nikky Mensah [address] [place] [address] Dr [address] [place] [address] Britta Moore, DO [address] [facility] [address] 05/03/2024 3:00 PM EST Imaging Maternal Medicine [facility] Nikky Mensah [address] [place] [address] Dr [address] [place] [address] 05/06/2024 9:40 AM EST Office Visit [facility] Aruna Rodarte [address] [place] [phone] Carly Gatica MD [address] [place] [address] 06/07/2024 8:45 AM EST Office Visit Legal Receptionist OB Maternal Medicine [facility] Nikky Mensah [address] [place] [address] Dr [address] [place] [address] Britta Moore, DO [address] [place] [address] 06/07/2024 8:45 AM EST Imaging [facility] Nikky Mensah [address] [place] [address] Dr [address] [place] [address] 06/28/2024 3:00 PM EDT Office Visit Legal Receptionist OB Maternal [facility] Nikky Mensah [address] [place] [address] [address] [place] [address] Britta Moore, DO [address] [place] [address] 06/28/2024 3:00 PM EDT Imaging [facility] Nikky Mensah [address] [place] [address] Dr [address] [place] [address] 08/19/2024 6:00 PM EDT Office Visit [facility] Aruna Rodarte [address] [place] [phone] Carly Gatica MD [address] [facility] [address] Scheduled Orders Name Type Priority Associated Diagnoses Orde r Schedule MFM US PREG FOLLOW UP EACH FETUS Medical Imaging Routine Morbid obesity due to excess calories (HCC) BMI 45.0-49.9, adult (HCC) Obesity in , antepartum 3 Occurrences starting 04/02/2024 until 07/01/2024 Health Maintenance Due Date Last Done Comments [...] this encounter Medical Devices Implanted Type Area Transit Bus Operator Device Identifier Shelf Expiration Date Model / Serial / Lot Btb Tightrope - [id number] Implanted:Qty: 1 on 11/12/2019 by Christopher Brennan, DO at OR [facility] Right: Knee [employer] 01/01/2024 AR-1588BTB / / [id number] Tightrope Abs Implant, Open - [id number] Implanted:Qty: 1 on 11/12/2019 by Christopher Brennan, DO at OR [facility] Right: Knee [employer] 01/01/2024 AR-1588TN-1 / / [id number] 7.5-10.5mm Graftlink Allograft, Frozen Graft Implanted:Qty: 1 on 11/12/2019 by Christopher Brennan DO at OR [facility] Right: Knee [employer] [id number] 09/01/2022 [facility] / [id number] 2 / LOT NA Tightrope Abs Button Rnd 11mm - [id number] Implanted:Qty: 1 on 11/12/2019 by Christopher Brennan DO at OR [facility] Right: Knee [employer] 08/31/2024 AR-1588TB-3 / / [id number] documented as of this encounter Visit Diagnoses [...] documented as of this encounter Care Teams Piler Relationship Specialty Start Date End Date Carly Gatica MD PCP - General Family Medicine 11/23/20 documented as of this encounter
--- OUTSIDE RECORDS SUMMARY | 2024-07-03 12:33 | External Medical Summary | Summary of Care ---
Author Name Unknown Organization [facility] Address [address] [place] [address] Phone [phone] Care Team Providers Care Position Classification Manager Name Role Phone Carly Gatica MD Primary Care Provid er Encounter Details Date Type Department Care Team ([facility] Contact Info) Description 04/02/2024 10:45 AM EST Office Visit Aircraft Structural Repair Mechanic OB Maternal Medicine [facility] Nikky Mensah [address] [place] [address] [address] [place] [address] Alex Harris MD [address] [place] [address] Morbid obesity due to excess [...] to care Food insecurity 03/11/2024 Overview: Per [facility] Protocol High-risk 03/07/2024 Obesity in , [...] have money to get more. Sometimes true [place] Depression Scale Answer Date Recorded [place] Depression Scale Total 11 03/07/2024 The thought [...] Dunbar is at 26w1d who presents to [facility] for an ultrasound and follow- up of [...] calories (HCC) - Primary (Chronic) Relevant Orders [facility] US PREG FOLLOW UP EACH FETUS BMI 45.0-49.9, adult (HCC) (Chronic) Relevant Orders [facility] US PREG FOLLOW UP EACH FETUS Obesity in , antepartum I reviewed the ultrasound with her. The anatomy that was visualized appears unremarkable and the overall estimated weight is consistent with the 25th percentile for the gestational age. The amniotic fluid volume is normal at 13 cm and the fetus is in the vertex presentation. Relevant Orders [facility] US PREG FOLLOW UP EACH FETUS RECOMMENDATIONS: Recommend surveillance starting at 37 weeks secondary to class II obesity. Recommend follow up ultrasound with MF in 4 weeks for growth secondary to [...] 04/10/2024 3:15 PM EST Office Visit Gynecology/Obstetrics [facility] [address] [facility] [place] [address] Poornima Freeman CRNP [facility] [place] [address] 05/03/2024 3:00 PM EST Office Visit [facility] Maternal Medicine [facility] Nikky Mensah [address] [place] [address] [address] [place] [address] Britta Moore, DO [address] [place] [address] 05/03/2024 3:00 PM EST Imaging Maternal Medicine [facility] Nikky Mensah [address] [place] [address] [address] [place] [address] 05/06/2024 9:40 AM EST Office Visit [facility] [address] [place] [phone] Carly Gatica MD [address] [place] [address] 06/07/2024 8:45 AM EST Office Visit Aircraft Structural Repair Mechanic OB Maternal Medicine [facility] Nikky Mensah [address] [place] [address] [address] [place] [address] Britta Moore, DO [address] [place] [address] 06/07/2024 8:45 AM EST Imaging Maternal Medicine [facility] Nikky Mensah [address] [place] [address] [address] [place] [address] 06/28/2024 3:00 PM EDT Office Visit Aircraft Structural Repair Mechanic OB Maternal Medicine [facility] Nikky Mensah [address] [place] [address] [address] [place] [address] Britta Moore, DO [address] [place] [address] 06/28/2024 3:00 PM EDT Imaging Maternal Medicine [facility] Nikky Mensah [address] [place] [address] [address] [place] [address] 08/19/2024 6:00 PM EDT Office Visit [facility] [address] [facility] [place] [address] Carly Gatica MD [address] [place] [address] Scheduled Orders Name Type Priority Associated Diagnoses [...] this encounter Medical Devices Implanted Type Area Map Maker Device Identifier Shelf Expiration Date Model / Serial / Lot Btb Tightrope - [id number] Implanted:Qty: 1 on 11/12/2019 by Christopher Brennan DO at OR [facility] Right: Knee [employer] 01/01/2024 AR-1588BTB / / [id number] Tightrope Abs Implant, Open - [id number] Implanted:Qty: 1 on 11/12/2019 by Christopher Brennan DO at OR [facility] Right: Knee [employer] 01/01/2024 AR-1588TN-1 / / [id number] 7.5-10.5mm Graftlink Allograft, Frozen Graft Implanted:Qty: 1 on 11/12/2019 by Christopher Brennan DO at OR [facility] Right: Knee [employer] [id number] 09/01/2022 [facility] / [id number] 2 / LOT NA Tightrope Abs Button Rnd 11mm - [id number] Implanted:Qty: 1 on 11/12/2019 by Christopher Brennan DO at OR [facility] Right: Knee [employer] 08/31/2024 AR-1588TB-3 / / [id number] documented as of this encounter Visit Diagnoses [...] documented as of this encounter Care Teams Position Classification Manager Relationship Specialty Start Date End Date Carly Gatica MD PCP - General Family Medicine 11/23/20 documented as of this encounter
--- OUTSIDE RECORDS SUMMARY | 2024-07-03 12:33 | External Medical Summary | Summary of Care ---
Author Name Unknown Organization [facility] [address] [place] [address] Phone [phone] Care Team Providers Care Relief Man Name Role Phone Carly Gatica MD Primary Care Provid er Reason for Visit * Reason Onset Date Comments Sticker Machine Operator Documentation 04/09/2024 Encounter Details Date Type Department Care Team ([facility] Contact Info) Description 04/09/2024 Telephone Gynecology/Obstetrics [facility] [address] [place], [place] [phone] Genet Mata MSW [address] [place] [address] Sticker Machine Operator Documentation Allergies No known active allergiesdocumented as of this encounter (statuses as of 04/09/2024) Medications Proventil HFA 108 (90 Base) MCG/ACT [...] as of this encounter (statuses as of 04/09/2024) Active Problems Problem Noted Date Diagnosed Date [...] to care Food insecurity 03/11/2024 Overview: Per [facility] Protocol High-risk 03/07/2024 Obesity in , [...] as of this encounter (statuses as of 04/09/2024) Resolved Problems Problem Noted Date Diagnosed Date [...] as of this encounter (statuses as of 04/09/2024) Immunizations Name Administration Dates Next Due DTaP [...] have money to get more. Sometimes true [place] Depression Scale Answer Date Recorded [place] Depression Scale Total 11 03/07/2024 The thought [...] Telephone Encounter - Genet Mata MSW - 04/09/2024 11:12 AM EST SW Follow up (See prior SW documentation for details) Telephone call to pt Gerard. Pt reports that she is using [employer] and will have transportation to Dental Officer appt tomorrow. Pt reports that she has her physical ID and social security card, and was able to get them submitted for her medical insurance. Pt reports that she also received copies of her paystubs from [employer]. Pt reports that she submitted this to [employer] and was approved, but is waiting to hear back about an update. Pt reports she has [employer] account. SW provided pt with number to call with [employer] questions or to log in to [employer] account for details. Pt reports that she put in her 2 weeks at [employer] because she is leaving the ch[facility] and moving in with her mother in [place]. Pt reports that her mothers is a safe place for her and the baby. Pt reports that she will be getting a job closer to her mother's home. SW reminded pt to make sure that her address is update for her benefits. Pt reports that she had a virtual WIC appointment the other day but did not receive any informationfor it. SW encouraged pt to contact [place] to have this rescheduled, and also update address. Pt reports that she is working with the Center and they will be helping her with some baby supplies. Pt reports that she has an upcoming intake appointment with them. SW and pt discussed [facility]. SW to send letter requesting for a pack n play to be sent to pt's mother's home ([address] [place]). documented in this encounter Plan of Treatment Upcoming Encounters Date Type Department Care Team (Late st Contact Info) Description 04/10/2024 3:15 PM EST Office Visit Gynecology/Obstetrics [address] [place] [address] Poornima Freeman CRNP [address] [place] [address] 05/03/2024 3:00 PM EST Office Visit Liquid Fertilizer Servicer [facility] Rodrigue Mensah[address] [place] [address] Britta Moore, DO [address] [place] [address] 05/03/2024 3:00 PM EST Imaging Maternal Medicine [facility] Rodrigue Mensah[address] [place] [address] 05/06/2024 9:40 AM EST Office Visit [facility] [address] [place] [phone] Carly Gatica MD [address] [place] [address] 06/07/2024 8:45 AM EST Office Visit Liquid Fertilizer Servicer OB Maternal Medicine [facility] Rodrigue Mensah[address] [place] [address] Britta Moore, DO [address] [place] [address] 06/07/2024 8:45 AM EST Imaging [facility] Rodrigue Mensah[address] [facility] [address] 06/28/2024 3:00 PM EDT Office Visit Liquid Fertilizer Servicer OB Maternal Medicine [facility] Rodrigue Mensah[address] [place] [address] Britta Moore, DO [address] [place] [address] 06/28/2024 3:00 PM EDT Imaging Maternal Medicine [facility] Rodrigue Mensah[address] [facility] [address] 08/19/2024 6:00 PM EDT Office Visit [facility] [address] [place] [phone] Carly Gatica MD [address] [place] [address] Health Maintenance Due Date Last Done Comments [...] this encounter Medical Devices Implanted Type Area Digital Strategy Director Device Identifier Shelf Expiration Date Model / Serial / Lot Btb Juan - [id number] Implanted:Qty: 1 on 11/12/2019 by Christopher Brennan, DO at OR [facility] Right: Knee [employer] 01/01/2024 AR-1588BTB / / [id number] Tightrope Abs Implant, Open - [id number] Implanted:Qty: 1 on 11/12/2019 by Christopher Brennan, DO at OR [facility] Right: Knee [employer] 01/01/2024 AR-1588TN-1 / / [id number] 7.5-10.5mm Graftlink Allograft, Frozen Graft Implanted:Qty: 1 on 11/12/2019 by Christopher Brennan, DO at OR [facility] Right: Knee [employer] [id number] 09/01/2022 [facility] / [id number] 2 / LOT NA Tightrope Abs Button Rnd 11mm - [id number] Implanted:Qty: 1 on 11/12/2019 by Christopher Brennan, at OR [facility] Right: Knee [employer] 08/31/2024 AR-1588TB-3 / / [id number] documented as of this encounter Additional Health Concerns Active Problems Noted Date Diagnosed Date OB Reminders 03/18/2024 documented as of this encounter Care Teams Relief Man Relationship Specialty Start Date End Date Carly Gatica MD PCP - General Family Medicine 11/23/20 documented as of this encounter
--- OUTSIDE RECORDS SUMMARY | 2024-07-03 12:34 | External Medical Summary | Summary of Care ---
Author Name Unknown Organization [facility] Address [address] [place] [address] Phone [phone] Care Team Providers Care Vault Worker Name Role Phone Carly Gatica MD Primary Care Provid er Reason for Visit * Reason Onset Date Comments Flare Breaker Documentation 03/19/2024 Encounter Details Date Type Department Care Team ([facility] Contact Info) Description 03/19/2024 Telephone Mortgage Accounting Clerk Obstetrics Maternal Medicine, [place] [address] [place], [place] [phone] Genet Mata, SAFETY RISK LEAD [address] [place] [address] Flare Breaker Documentation Allergies No known active allergiesdocumented as of this encounter (statuses as of 03/19/2024) Medications Proventil HFA 108 (90 Base) MCG/ACT [...] as of this encounter (statuses as of 03/19/2024) Active Problems Problem Noted Date Diagnosed Date [...] to care Food insecurity 03/11/2024 Overview: Per [facility] Protocol High-risk 03/07/2024 Obesity in , antepartum 03/07/2024 Overview (03/07/2024): Class 2 obese: Pre-gravid BMI 35.28 Assessment & Plan (03/12/2024 2:52 PM EST): [...] as of this encounter (statuses as of 03/19/2024) Resolved Problems Problem Noted Date Diagnosed Date [...] as of this encounter (statuses as of 03/19/2024) Immunizations Name Administration Dates Next Due DTaP [...] have money to get more. Sometimes true [place] Depression Scale Answer Date Recorded [place] Depression Scale Total 11 03/07/2024 The thought [...] No 02/20/2024 Does the household have a zuni hospitallar source of income? (Household - for ages [...] Team (Late st Contact Info) Description 04/10/2024 1:45 PM EST Office Visit Gynecology/Obstetrics [facility] [address] [facility] [place] [address] Faith Flood CRNP [address] [place], [place] [address] 04/10/2024 3:15 PM EST Office Visit Gynecology/Obstetrics Samra Ayala [address] [place] [address] Poornima Freeman CRNP [address] [place], [place] [address] 05/06/2024 9:40 AM EST Office Visit Family Practice, Niels Rodarte [address] [place] [phone] Carly Gatica MD [address] [place] [address] 08/19/2024 6:00 PM EDT Office Visit Family [facility], Niels Rodarte [address] [place] [phone] Carly Gatica MD [address], [place] [address] Health Maintenance Due Date Last Done Comments Pneumococcal Vaccine: Pediat rics (0 to 5 Years) and At-Risk Patients (6 to 64 Years) (1 of 2 - PCV) 2008 Depression Monitoring 07/16/2023 07/15/2022 COVID-19 Vaccine ( [...] this encounter Medical Devices Implanted Type Area Sql Data Architect Device Identifier Shelf Expiration Date Model / Serial / Lot Btb Tightrope - [id number] Implanted:Qty: 1 on 11/12/2019 by Christopher Brennan, DO at OR [facility] Right: Knee [employer] 01/01/2024 AR-1588BTB / / [id number] Tightrope Abs Implant, Open - [id number] Implanted:Qty: 1 on 11/12/2019 by Christopher Brennan, DO at OR [facility] Right: Knee [employer] 01/01/2024 AR-1588TN-1 / / [id number] 7.5-10.5mm Graftlink Allograft, Frozen Graft Implanted:Qty: 1 on 11/12/2019 by Christopher Brennan, DO at OR [facility] Right: Knee [employer] [id number] 09/01/2022 L / [id number] 2 / LOT NA Tightrope Abs Button Rnd 11mm - [id number] Implanted:Qty: 1 on 11/12/2019 by Christopher Brennan, DO at OR [facility] Right: Knee [employer] 08/31/2024 AR-1588TB-3 / / [id number] documented as of this encounter Additional Health Concerns Active Problems Noted Date Diagnosed Date OB Reminders 03/18/2024 documented as of this encounter Care Teams Vault Worker Relationship Specialty Start Date End Date Carly Gatica MD [address] [place] [address] PCP - General Family Medicine 11/23/20 documented as of this encounter
--- OUTSIDE RECORDS SUMMARY | 2024-07-03 12:34 | External Medical Summary | Summary of Care ---
Author Name Unknown Organization [facility] Address [address] [place] [address] Phone [phone] Care Team Providers Care Director Of Counterintelligence Name Role Phone Carly Gatica MD Primary Care Provid er Reason for Visit * Reason Onset Date Comments Encounter Created in Error 03/19/2024 Encounter Details Date Type Department Care Team ([facility] Contact Info) Description 03/19/2024 New Patient Triage (ORGAN ASSEMBLER USE ONLY) Cardiology, [facility] [address] [place], [place] [id number] Flores Bennett CRNP [address] [place] [address] Encounter Created in Error Allergies No known active allergiesdocumented as of [...] to care Food insecurity 03/11/2024 Overview: Per [facility] Protocol High-risk 03/07/2024 Obesity in , [...] money to get more. Sometimes true [place] Depression Scale Answer Date Recorded [place] Depression Scale Total 11 03/07/2024 The thought [...] Care Team (Late st Contact Info) Description 03/19/2024 2:30 PM EST Telemedicine Cardiology [facility] [place] [address] [place] [address] Marlo Donis, [address] [facility] [place] [address] 04/10/2024 1:45 PM EST Office Visit Gynecology/Obstetrics [facility] [address] [place] [address] Faith Flood CRNP [address] [place] [address] 04/10/2024 3:15 PM EST Office Visit Gynecology/Obstetrics [facility] [address] [place] [address] Poornima Freeman CRNP [address] [place] [address] 05/06/2024 9:40 AM EST [facility] [address] [facility] [place] [phone] Carly Gatica MD [address] [place] [address] 08/19/2024 6:00 PM EDT [facility] [address] [facility] [place] [phone] Carly Gatica MD [address] [place] [address] Health Maintenance Due Date Last Done Comments [...] this encounter Medical Devices Implanted Type Area Paralegal Internship Device Identifier Shelf Expiration Date Model / Serial / Lot Btb Tightrope - [id number] Implanted:Qty: 1 on 11/12/2019 by Christopher Brennan DO at OR [facility] Right: Knee [employer] 01/01/2024 AR-1588BTB / / [id number] Tightrope Abs Implant, Open - [id number] Implanted:Qty: 1 on 11/12/2019 by Christopher Brennan DO at OR [facility] Right: Knee [employer] 01/01/2024 AR-1588TN-1 / / [id number] 7.5-10.5mm Graftlink Allograft, Frozen Graft Implanted:Qty: 1 on 11/12/2019 by Christopher Brennan DO at OR [facility] Right: Knee [employer] [id number] 09/01/2022 [employer] / [id number] / LOT NA Tightrope Abs Button Rnd 11mm - [id number] Implanted:Qty: 1 on 11/12/2019 by Christopher Brennan DO at OR [facility] Right: Knee [employer] 08/31/2024 AR-1588TB-3 / / [id number] documented as of this encounter Additional Health Concerns Active Problems Noted Date Diagnosed Date OB Reminders 03/18/2024 documented as of this encounter Care Teams Director Of Counterintelligence Relationship Specialty Start Date End Date Carly Gatica MD [address], [place] [phone] PCP - General Family Medicine 11/23/20 documented as of this encounter
--- OUTSIDE RECORDS SUMMARY | 2024-07-03 12:34 | External Medical Summary | Summary of Care ---
Author Name Unknown Organization [facility] Address [address] [place] [address] Phone [phone] Care Team Providers Care Drywall Hanger Helper Name Role Phone Carly Gatica MD Primary Care Provid er Reason for Visit * Reason Onset Date Comments Svp Documentation 03/26/2024 Encounter Details Date Type Department Care Team ([facility] Contact Info) Description 03/26/2024 Telephone Inspector [employer] Products Obstetrics Maternal Medicine, [place] [address] [place] [address], [place] [phone] Genet Mata, MACARONI MAKER [address] [place] [address] Svp Documentation Allergies No known active allergiesdocumented as of this encounter (statuses as of 03/26/2024) Medications Proventil HFA 108 (90 Base) MCG/ACT [...] as of this encounter (statuses as of 03/26/2024) Active Problems Problem Noted Date Diagnosed Date [...] to care Food insecurity 03/11/2024 Overview: Per [facility] Protocol High-risk 03/07/2024 Obesity in [...] as of this encounter (statuses as of 03/26/2024) Resolved Problems Problem Noted Date Diagnosed Date [...] as of this encounter (statuses as of 03/26/2024) Immunizations Name Administration Dates Next Due DTaP [...] have money to get more. Sometimes true [place] Depression Scale Answer Date Recorded [place] Depression Scale Total 11 03/07/2024 The thought [...] No 02/20/2024 Does the household have a [facility] source of income? (Household - for ages [...] Telephone Encounter - Genet Mata MSW - 03/26/2024 9:57 AM EST Telephone call with pt. [facility] sent letter to [facility] confirming appointment and need for transportation. Pt reports that [facility] contacted her and are able to provide transportation to appointment. Pt aware appointment is 04/02 10:45 AM at [facility]. documented in this encounter Plan of Treatment Upcoming Encounters Date Type Department Care Team (Late st Contact Info) Description 04/02/2024 10:45 AM EST Office Visit Inspector [employer] OB Maternal Medicine [facility] Nikky Mensah [address] [place] [address] [address] [place] [address] Alex Harris MD [address] [place] [address] 04/02/2024 10:45 AM EST Imaging [facility] Rodrigue Mensah[address] [facility] [place] [address] 04/10/2024 3:15 PM EST Office Visit Gynecology/Obstetrics [place] [address] [facility] [place] [address] Poornima Freeman CRNP [address] [place] [address] 05/06/2024 9:40 AM EST [facility] [address] [place] [phone] Carly Gatica MD [address] [facility] [place] [address] 08/19/2024 6:00 PM EDT [facility] [address] [place] [phone] Carly Gatica MD [address] [facility] [place] [phone] Health Maintenance Due Date Last Done Comments Pneumococcal Vaccine: Pediat rics (0 to 5 Years) and At-Risk Patients (6 to 64 Years) (1 of 2 - PCV) 2021 [...] Author Reminders Care Plan OB Reminders No Jacit, Provider documented as of this encounter Medical Devices Implanted Type Area Engineering Group Leader Device Identifier Shelf Expiration Date Model / Serial / Lot Btb Tightrope - [id number] Implanted:Qty: 1 on 11/12/2019 by Christopher Brennan DO at OR [facility] Right: Knee [employer] 01/01/2024 AR-1588BTB / / [id number] Tightrope Abs Implant, Open - [id number] Implanted:Qty: 1 on 11/12/2019 by Christopher Brennan DO at OR [facility] Right: Knee [employer] 01/01/2024 AR-1588TN-1 / / [id number] 7.5-10.5mm Graftlink Allograft, Frozen Graft Implanted:Qty: 1 on 11/12/2019 by Christopher Brennan DO at OR [facility] Right: Knee [employer] [id number] 09/01/2022 [facility] / [id number] 2 / LOT NA Tightrope Abs Button Rnd 11mm - [id number] Implanted:Qty: 1 on 11/12/2019 by Christopher Brennan DO at OR [facility] Right: Knee [employer] 08/31/2024 MARIBELL-1588TB-3 / / [id number] documented as of this encounter Additional Health Concerns Active Problems Noted Date Diagnosed Date OB Reminders 03/18/2024 documented as of this encounter Care Teams Drywall Hanger Helper Relationship Specialty Start Date End Date Carly Gatica MD PCP - General Family Medicine 11/23/20 documented as of this encounter
--- OUTSIDE RECORDS SUMMARY | 2024-07-03 12:34 | External Medical Summary | Summary of Care ---
Author Name Unknown Organization [facility] Address [address] [place] [address] Phone [phone] Care Team Providers Care Template Layout Worker Name Role Phone Carly Gatica MD Primary Care Provid er Reason for Referral * Precert (Diagnostic Medical) (Within 10 days (routine)) - Pending Review Specialty Diagnoses / Procedures Referred By Contac t Referred To Contact Cardiac Studies Diagnoses Hypertension goal BP (blood pressure) < 140/90 Procedures ECHO, COMPLETE (2D), TRANS-THORACIC Marlo Donis DO [address] [place] [address] Phone: tel: fax: Referral ID Status Reason Start Date Expiration Date Visits Requested Visits Authorized [id number] Pending Review Precert 03/19/2024 999 [id number] Reason for Visit * Reason Comments NEW PATIENT * Evaluate & Treat - Unlimited Visits (Within 10 days (routine)) - Pending Review Specialty Diagnoses / Procedures Referred By Contac t Referred To Contact Cardiovascular Medicine / Cardiology Diagnoses Obesity in , antepartum Hypertensive left ventricular hypertrophy, without heart failure Radha Hollis MD [address] [place] [address] Phone: tel: fax: Referral ID Status Reason Start Date Expiration Date Visits Requested Visits Authorized [id number] Pending Review Specialty Services Required 4 [phone] Encounter Details Date Type Department Care Team (Late st Contact Info) Description 03/19/2024 2:30 PM EST Telemedicine Cardiology [facility] [address] [place] [address] Jewels Marlo Russ, [address] [place] [address] Hypertension goal BP (blood pressure) < 140/90* Allergies No known active allergiesdocumented as of this encounter (statuses as of 03/19/2024) Medications Proventil HFA 108 (90 Base) MCG/ACT Inhalation Aerosol SolutionIndicati ons:Acute non-recurrent maxillary sinusitis Inhale 2 Puffs by mouth every 4 hours as needed for Wheezing. 18 g 3 4 Active Plus 27-1 MG Oral TabletIndication s:Supervision of normal first , antepartum Take 1 Tablet by mouth in the morning. 100 Tablet 3 4 Active Blood Pressure CuffIndications: History of hypertension For monitoring blood pressure 1 Each 4 Active Cetirizine HCl 10 MG Oral Tablet (ZyrTEC) Take by mouth 1 Tablet daily as needed for Other (allergies). 90 Tablet 1 2 024 Discontin ued(Medic ation List Clean Up) documented as of this encounter (statuses as [...] to care Food insecurity 03/11/2024 Overview: Per [facility] Protocol High-risk 03/07/2024 Obesity in , [...] have money to get more. Sometimes true [place] Depression Scale Answer Date Recorded [place] Depression Scale Total 11 03/07/2024 The thought [...] as of this encounter Progress Notes * JewelsMarlo benjamin, DO - 03/19/2024 2:30 PM EST Cardiology Outpatient Consultation New Had difficulties connecting to video. Completed visit via telephonic encounter After connecting to the patient via telephone, the patient was identified by name and date of . Patient was then informed that this was a telephone call only visit. The patient agreed to participate. Visit Disposition: Requires face to face/telemedicine follow-up (this telephonic visit is not billable) Total call duration was 15 minutes. PROBLEMS Hypertension -previously treated w/ lisinopril, changed to nifedipine - felt safer in childbearing age -BPs improved/normalized w/ weight loss -> stopped anti-HTN Rx in summer 2023 Asthma HPI: Gerard Dunbar is a 23 year old female referred by Carly Gatica MD who is seen in consultation for history of hypertension and risk evaluation during . Gerard was diagnosed with hypertension at age 18 and was treated with lisinopril initially. She had remained on this for several years until changed eventually to nifedipine within past few years as a safety precaution during childbearing years. Within the past year she had notable weight loss and with that improvement in her blood pressure to the point where she was able to come off blood pressure therapy. Prior cardiac testing including echocardiogram in 2019 showed borderline concentric LVH. She is currently 21 weeks reports no concerns at this time. She feels well and progressingas expected. Prior to and during she denies any chest pain, shortness of breath, palpitations, lightheadedness/dizziness or near-syncope. Doing well without any specific complaints or concerns. Able to do all of the day-to-day activities without troubles. No family history of sudden cardiac . Denies family history of premature CAD. She does have asthma but rarely requires use of rescue inhaler. BP Readings from Last 20 Encounters: 03/07/24 136/74 10/30/23 116/74 07/15/22 118/80 04/15/22 130/82 07/05/21 126/82 03/12/21 120/64 12/21/20 124/80 11/23/20 122/84 03/12/20 (!) 130/84 (97%, Z = 1.88 / 97%, Z = 1.88)* 11/12/19 (!) 155/91 (>99 %, Z >2.33 / >99 %, Z >2.33)* 06/06/19 (!) 120/82 03/15/19 (!) 140/82 (>99 %, Z >2.33 / 95%, Z = 1.64)* 12/24/18 (!) 134/70 (98%, Z = 2.05 / 66%, Z = 0.41)* 09/14/18 (!) 130/90 (97%, Z = 1.88 / >99 %, Z >2.33)* 09/11/18 (!) 134/76 (98%, Z = 2.05 / 87%, Z = 1.13)* 08/10/18 (!) 140/80 (>99 %, Z >2.33 / 93%, Z = 1.48)* 03/02/18 144/84 (>99 %, Z >2.33 / 96%, Z = 1.75)* 01/16/18 128/74 (96%, Z = 1.75 / 80%, Z = 0.84)* 10/10/17 158/86 (>99 %, Z >2.33 / 97%, Z = 1.88)* 09/16/16 122/68 (89%, Z = 1.23 / 59%, Z = 0.23)* *BP percentiles are based on the 2017 AAP Clinical Practice Guideline for girls Wt Readings from Last 20 Encounters: 03/07/24 117.9 kg (260 lb) 10/30/23 120.5 kg (265 lb 11.2 oz) 07/15/22 (!) 138.3 kg (305 lb) (>99%, Z= 2.89)* 04/15/22 (!) 142 kg (313 lb) (>99%, Z= 2.91)* 07/05/21 (!) 152.9 kg (337 lb) (>99%, Z= 2.91)* 12/21/20 (!) 144.1 kg (317 lb 9.6 oz) (>99%, Z= 2.80)* 11/23/20 (!) 144.6 kg (318 lb 11.2 oz) (>99%, Z= 2.80)* 06/25/20 (!) 160.8 kg (354 lb 9.6 oz) (>99%, Z= 2.88)* 05/27/20 (!) 167.3 kg (368 lb 12.8 oz) (>99%, Z= 2.91)* 03/12/20 (!) 162.5 kg (358 lb 4.8 oz) (>99%, Z= 2.88)* 11/21/19 (!) 144.2 kg (318 lb) (>99%, Z= 2.78)* 10/17/19 (!) 144.2 kg (318 lb) (>99%, Z= 2.78)* 10/16/19 (!) 144.2 kg (318 lb) (>99%, Z= 2.78)* 09/18/19 (!) 144.2 kg (318 lb) (>99%, Z= 2.78)* 06/14/19 (!) 144.2 kg (318 lb) (>99%, Z= 2.80)* 06/06/19 (!) 144.6 kg (318 lb 12.8 oz) (>99%, Z= 2.81)* 03/15/19 (!) 149.7 kg (330 lb) (>99%, Z= 2.86)* 02/12/19 (!) 146.5 kg (322 lb 14.4 oz) (>99%, Z= 2.85)* 12/24/18 (!) 144.7 kg (319 lb) (>99%, Z= 2.85)* 09/14/18 (!) 145.6 kg (321 lb) (>99%, Z= 2.89)* * Growth percentiles are based on [facility] (Girls, 2-20 Years) data. Past Medical History: Diagnosis Date Asthma, severity to be determined Obesity, BMI not known Varicella without complication 08-04 Patient Active Problem List Diagnosis Morbid obesity due to excess calories (HCC) BMI 45.0-49.9, adult ([facility]) Hypertension goal BP (blood pressure) < 140/90 Hypertensive left ventricular hypertrophy, without heart failure Moderate episode of recurrent major depressive disorder (HCC) IRAJ (generalized anxiety disorder) Suicidal thoughts High-risk Obesity in , antepartum History of hypertension Marijuana use during 23 weeks gestation of Mild intermittent asthma with exacerbation Food insecurity Past Surgical History: Procedure Laterality Date CREATE EARDRUM OPENING,LOCAL ANESTH 2004 Tympanostomy tubes KNEE ARTHROSCOPY/MENISCECTOMY Right 11/12/2019 ARTHROSCOPY KNEE MEDIAL OR LATERAL MENISCECTOMY performed by Christopher Brennan DO at OR [facility] KNEE ARTHROSCOPY/MENISCUS REPAIR Right 11/12/2019 ARTHROSCOPY KNEE WITH MENISCUS REPAIR performed by Christopher Brennan DO at OR [facility] KNEE ARTHROSCOPY/REPAIR LIGAMENT Right 11/12/2019 ARTHROSCOPICALLY AIDED ACL RECONSTRUCTION performed by Christopher Brennan DO at OR [facility] Family History Problem Relation Name Age of Onset Obesity Mother Obesity Father Hypertension Father Endocrine Disorder Father hypercholesterolemia Hypertension Grandfather (Paternal) Blood Disorder Aunt (Unspecified) sickle cell anemia Blood Disorder Other sickle cell anemia Hypertension Uncle (Unspecified) Social History Tobacco Use Smoking status: Never Smokeless tobacco: Never Substance Use Topics Alcohol use: No Drug use: No Review of patient's allergies indicates: No Known Allergies Current Outpatient Medications Medication Sig Dispense Refill Cetirizine HCl 10 MG Oral Tablet (ZyrTEC) Take by mouth 1 Tablet daily as needed for Other (allergies). (Patient not taking: Reported on 03/07/2024) 90 Tablet 1 Proventil HFA 108 (90 Base) MCG/ACT Inhalation Aerosol Solution Inhale 2 Puffs by mouth every 4 hours as needed for Wheezing. 18 g 3 Plus 27-1 MG Oral Tablet Take 1 Tablet by mouth in the morning. 100 Tablet 3 Blood Pressure Cuff For monitoring blood pressure 1 Each 0 No current facility-administered medications for this visit. ROS: Constitutional: (-) fever chills sweats or weight loss Eyes: (-) negative, no amaurosis fugax, pain, blurred vision, or redness ENT: (-) negative: no headaches, vertigo, hearing loss, sinus, ear, or throat problems Cardiovascular: (-) negative: no chest pain, dyspnea, syncope, or palpitations Pulmonary: (-) negative: no cough, wheezing, or shortness of breath Abdominal/GI: (-) negative: no pain, heartburn, dysphagia, bleeding, change in bowel habits, nauseaor vomiting Female : (-) dysuria, (-) frequency, (-) hematuria Musculoskeletal: (-) negative: no pain Endocrine: (-) corticosteroid use and (-) thyroid replacement therapy Skin: (-) negative: no rash or new or changing moles Neurology: (-) negative: no focal neurologic defect PHYSICAL EXAMINATION - NOT DONE, telephone encounter only LMP 10/02/2023 There is no height or weight on file to calculate BMI. Laboratory Data Review: Latest Reference Range & Units 03/07/24 16:15 SODIUM 135 - 146 mmol/L 135 POTASSIUM 3.5 - 5.1 mmol/L 4.3 CHLORIDE 98 - 107 mmol/L 102 CO2 22 - 32 mmol/L 23 BUN 6 - 20 mg/dL 11 CREATININE 0.5 - 1.0 mg/dL 0.6 EGFR >=60 mL/min >90 ANION GAP 7 - 15 mmol/L 10 GLUCOSE 70 - 120 mg/dL 81 CALCIUM 8.4 - 10.2 mg/dL 9.7 Protein 6.0 - 8.3 g/dL 6.4 WBC 4.00 - 10.80 K/uL 11.55 (H) RBC 3.85 - 5.15 M/uL 3.98 HGB 12.0 - 15.3 g/dL 11.5 (L) HCT 36.0 - 45.2 % 34.5 (L) MCV 81.5 - 97.5 fL 86.7 MCH 27.0 - 34.0 pg 28.9 MCHC 32.0 - 36.0 g/dL 33.3 RDW 11.5 - 15.5 % 13.9 PLT 140 - 400 K/uL 276 MPV 6.6 - 11.1 fL 9.5 CARDIAC STUDIES: [facility]iopatch from 12/12/2023 Final Interpretation Indications: Syncope Duration: 12 days, 19 hours analyzed CONCLUSIONS: Preliminary Findings Prepared by Dania Yancey, PEDRO PABLO 01/09/24 Patient had a min HR of 45 bpm, max HR of 186 bpm, and avg HR of 97 bpm. Predominant underlying rhythm was Sinus Rhythm. Isolated SVEs were rare (<1.0%), SVE Couplets were rare (<1.0%), and SVETriplets were rare (<1.0%). Isolated VEs were rare (<1.0%), and no VE Couplets or VE Tripletswere present. The patient recorded 5 event markers and 4 diary entries correlating with sinus and sinus tachycardia with 1 isolated atrial ectopic beat and 1 isolated ventricular ectopic beat. No arrhythmias were observed Impression: Sinus and sinus tachycardia with elevated average heart rate of 97 beats per minute. Noarrhythmias EKG from 11/11/2019 (independently reviewed by myself): Sinus rhythm, 85 bpm, early repolarization Echo from 08/10/2018 There is borderline concentric left ventricular hypertrophy. The left ventricular systolic function is qualitatively normal . There is not a coarctation of the aorta. Impression / Plan: Hypertensive heart disease BP Readings from Last 5 Encounters: 03/07/24 136/74 10/30/23 116/74 07/15/22 118/80 04/15/22 130/82 07/05/21 126/82 - at this current time, pre-eclampsia is not present and BPs have been in normotensive range. No described signs/symptoms of CHF - in addition to checking BPs and urine for protein as per typical standards of would recommend getting updated echocardiogram - if BP rises to > 140 mmHg would consider re-introduction of BP therapy w/ Labetalol as felt mansoor safer during - Discussed with patient that pre-eclampsia (16%) or HTN alone (20%) can develop in subsequent pregnancies and has been associated with increased risk of cardio- or cerebrovascular disease, HTN, type2 DM, and kidney disease - strongly encouraged and advised patient to maintain a healthy lifestyle with NO SMOKING, healthy diet (vegan, Mediterranean, low Na and avoid fast foods/high fructose drinks, etc) with at least 30 minutes/day of aerobic exercise - discussed that extended has been shown to decrease risk of maternal hypertension and CVdisease RECOMMENDATIONS: Get echo I will call with results and arrange sooner follow up as needed based on results. Otherwise follow up as needed. Marlo Donis DO Cardiology [address] [address] 03/19/2024 documented in this encounter Plan of Treatment Upcoming Encounters Date Type Department Care Team (Late st Contact Info) Description 04/10/2024 1:45 PM EST Office Visit Gynecology/Obstetrics [facility] [address] [place] [address] Faith Flood CRNP [address] [place] [address] 04/10/2024 3:15 PM EST Office Visit Gynecology/Obstetrics [facility] [address] [place] [address] Poornima Freeman CRNP [address] [place] [address] 05/06/2024 9:40 AM EST Office [facility] Aruna [address]arte [address] [place] [phone] Carly Gatica MD [address] [facility] [address] 08/19/2024 6:00 PM EDT Office Visit Family Practice, [place] Jose Giraislawrence Rodarte [address] [place] [phone] Carly Gatica MD [address] [place] [address] Scheduled Orders Name Type Priority Associated Diagnoses Orde r Schedule ECHO, COMPLETE (2D), TRANS-THORACIC Echocardiology Routine Hypertension goal BP (blood pressure) < 140/90 Expected: 03/19/2024 (Approximate), Expires: 04/19/2026 Health Maintenance Due Date Last Done Comments [...] Author Reminders Care Plan OB Reminders No Manpreet Vega documented as of this encounter Medical Devices Implanted Type Area Beveling And Edging Machine Operator Device Identifier Shelf Expiration Date Model / Serial / Lot Btb Tightrope - [id number] Implanted:Qty: 1 on 11/12/2019 by Christopher Brennan DO at OR [facility] Right: Knee [employer] 01/01/2024 AR-1588BTB / / [id number] Tightrope Abs Implant, Open - [id number] Implanted:Qty: 1 on 11/12/2019 by Christopher Brennan DO at OR [facility] Right: Knee [employer] 01/01/2024 AR-1588TN-1 / / [id number] 7.5-10.5mm Graftlink Allograft, Frozen Graft Implanted:Qty: 1 on 11/12/2019 by Christopher Brennan DO at OR [facility] Right: Knee [employer] [id number] 09/01/2022 [facility] / [id number] / LOT NA Tightrope Abs Button Rnd 11mm - [id number] Implanted:Qty: 1 on 11/12/2019 by Christopher Brennan DO at OR [facility] Right: Knee [employer] 08/31/2024 AR-1588TB-3 / / [id number] documented as of this encounter Visit Diagnoses Diagnosis Obesity in , antepartum- Primary Obesity complicating , childbirth, or the puerperium, antepartum condition or complication Marijuana use during Hypertensive left ventricular hypertrophy, without heart failure Mild intermittent asthma with exacerbation Unspecified asthma, with exacerbation IRAJ (generalized anxiety disorder) Generalized anxiety disorder 23 weeks gestation of state, incidental Hypertension goal BP (blood pressure) < 140/90- Primary Unspecified essential hypertension documented in this encounter Additional Health Concerns Active Problems Noted Date Diagnosed Date OB Reminders 03/18/2024 documented as of this encounter Care Teams Template Layout Worker Relationship Specialty Start Date End Date Carly Gatica MD [address] [place] [address] PCP - General Family Medicine 11/23/20 documented as of this encounter
--- OUTSIDE RECORDS SUMMARY | 2024-07-03 12:34 | External Medical Summary | Summary of Care ---
Author Name Unknown Organization [facility] Address [address] [place] [address] Phone [phone] Care Team Providers Care Vamp Maker Name Role Phone Carly Gatica MD Primary Care Provid er Reason for Visit * Reason Onset Date Comments Glue Maker Bone Documentation 03/13/2024 Encounter Details Date Type Department Care Team ([facility] Contact Info) Description 03/13/2024 Telephone Laborer Yard Obstetrics Maternal Medicine, [place] [address], [place] [phone] Genet Mata, SENIOR APPLICATIONS ENGINEER [address] [place] [address] Glue Maker Bone Documentation Allergies No known active allergiesdocumented as of this encounter (statuses as of 03/13/2024) Medications Cetirizine HCl 10 MG Oral Tablet (ZyrTEC) Take by mouth 1 Tablet daily as needed for Other (allergies). 90 Tablet 1 2 Active Additional Information Patient not taking.Reported on 03/07/2024 Proventil HFA 108 (90 Base) MCG/ACT Inhalation [...] as of this encounter (statuses as of 03/13/2024) Active Problems Problem Noted Date Diagnosed Date [...] of 03/11/2024 Overview (03/12/2024): Late to care Supervision of normal first , antepartu m 03/07/2024 Obesity in , antepartum 03/07/2024 Overview [...] as of this encounter (statuses as of 03/13/2024) Resolved Problems Problem Noted Date Diagnosed Date [...] as of this encounter (statuses as of 03/13/2024) Immunizations Name Administration Dates Next Due DTaP [...] have money to get more. Sometimes true [place] Depression Scale Answer Date Recorded [place] Depression Scale Total 11 03/07/2024 The thought [...] Telephone Encounter - Genet Mata MSW - 03/13/2024 11:13 AM EST Telephone call to pt to complete SW assessment. Pt reports that she needs assistance with housing, and requests for SW to call back at 3 PM. documented in this encounter Plan of Treatment Upcoming Encounters Date Type Department Care Team (Late st Contact Info) Description 03/19/2024 12:30 PM EST Office Visit Laborer Yard Obstetrics Maternal Medicine, [place] [address] [place] [address] [facility] [address] [place] [address] 03/19/2024 12:30 PM EST Imaging Radiology [facility] [place], [place] [address] [place] [address] 04/10/2024 3:15 PM EST Office Visit Gynecology/Obstetrics [facility] [address] [facility] [place] [address] Poornima Freeman CRNP [address] [place] [address] 05/06/2024 9:40 AM EST [facility] [address] [place] [address] Carly Gatica MD [address] [place] [address] 08/19/2024 6:00 PM EDT [facility] [address] [place] [address] Carly Gatica MD [address] [address] Health Maintenance Due Date Last Done Comments [...] history exists documented as of this encounter Medical Devices Implanted Type Area Non Licensed Nuclear Equipment Operator Device Identifier Shelf Expiration Date Model / Serial / Lot Btb Tightrope - [id number] Implanted:Qty: 1 on 11/12/2019 by Christopher Brennan DO at OR [facility] Right: Knee [employer] 01/01/2024 AR-1588BTB / / [id number] Tightrope Abs Implant, Open - [id number] Implanted:Qty: 1 on 11/12/2019 by Christopher Brennan DO at OR [facility] Right: Knee [employer] 01/01/2024 AR-1588TN-1 / / [id number] 7.5-10.5mm Graftlink Allograft, Frozen Graft Implanted:Qty: 1 on 11/12/2019 by Christopher Brennan DO at OR [facility] Right: Knee [employer] [id number] 09/01/2022 [facility] / [id number] 2 / LOT NA Tightrope Abs Button Rnd 11mm - [id number] Implanted:Qty: 1 on 11/12/2019 by Christopher Brennan, at OR [facility] Right: Knee [employer] 08/31/2024 VT-1588TB-3 / / [id number] documented as of this encounter Care Teams Vamp Maker Relationship Specialty Start Date End Date Carly Gatica MD [address] [place] [address] PCP - General Family Medicine 11/23/20 documented as of this encounter
--- OUTSIDE RECORDS SUMMARY | 2024-07-03 12:34 | External Medical Summary | Summary of Care ---
Author Name Unknown Organization [facility] Address [address] [place] [address] Phone [phone] Care Team Providers Care Train Clerk Name Role Phone Carly Gatica MD Primary Care Provid er Reason for Visit * Reason Onset Date Comments Advice 03/18/2024 QNATAL Question Encounter Details Date Type Department Care Team ([facility] Contact Info) Description 03/18/2024 Telephone Accounting Machine Servicer Obstetrics Maternal Medicine, [place] [address] [place] [address] Pau Sneed CHRA Advice (QNATAL Question) Allergies No known active allergiesdocumented as of this encounter (statuses as of 03/18/2024) Medications Cetirizine HCl 10 MG Oral Tablet [...] as of this encounter (statuses as of 03/18/2024) Active Problems Problem Noted Date Diagnosed Date [...] to care Food insecurity 03/11/2024 Overview: Per [facility] Protocol High-risk 03/07/2024 Obesity in , [...] as of this encounter (statuses as of 03/18/2024) Resolved Problems Problem Noted Date Diagnosed Date [...] as of this encounter (statuses as of 03/18/2024) Immunizations Name Administration Dates Next Due DTaP [...] have money to get more. Sometimes true [place] Depression Scale Answer Date Recorded [place] Depression Scale Total 11 03/07/2024 The thought [...] encounter Miscellaneous Notes * Telephone Encounter - Pau Sneed CHRA - 03/18/2024 1:14 PM EST The patient called the clinic line with questions regarding if they had to have QNATAL ordered for them by their doctor or if they could order it themselves over My. The patient has an appointment with Dr. Moore tomorrow. Informed the patient that [facility] would likely be able to order that testing forthem. The patient plans to ask Dr. Moore about the QNATAL during their appointment. Respectfully, Pau Sneed Genetic Counseling Curing Room Worker Maternal Medicine/[facility] For further questions call the Genetic Counselor at + . documented in this encounter Plan of Treatment Upcoming Encounters Date Type Department Care Team (Late st Contact Info) Description 03/19/2024 12:30 PM EST Office Visit Accounting Machine Servicer Obstetrics Maternal Medicine, [place] [address] [place] [address] Britta Moore, [address] [place] [address] 03/19/2024 12:30 PM EST Imaging Radiology [facility] [place] [address] [place] [address] 03/19/2024 2:30 PM EST Telemedicine Cardiology [facility], [place] [address] [place] [address] Marlo Donis, [address] [place] [address] 04/10/2024 3:15 PM EST Office Visit Gynecology/Obstetrics [facility] [address] [facility] [place] [address] Poornima Freeman CRNP [address] [place] [address] 05/06/2024 9:40 AM EST Office Visit [facility] [address] [place] [address] Carly Gatica MD [address] [place] [address] 08/19/2024 6:00 PM EDT Office Visit Family [facility], [place] [address] [address] Carly Gatica MD [address] [place] [address] Health Maintenance Due Date Last Done Comments Pneumococcal Vaccine: Pediat rics (0 to 5 Years) and At-Risk Patients (6 to 64 Years) (1 of 2 - PCV) 2008 Depression Monitoring 07/16/2023 07/15/2022 COVID-19 Vaccine (2023-2 [...] this encounter Medical Devices Implanted Type Area Chief Of Safety And Protection Device Identifier Shelf Expiration Date Model / Serial / Lot Btb Tightrope - [id number] Implanted:Qty: 1 on 11/12/2019 by Christopher Brennan DO at OR [facility] Right: Knee [employer] 01/01/2024 AR-1588BTB / / [id number] Tightrope Abs Implant, Open - [id number] Implanted:Qty: 1 on 11/12/2019 by Christopher Brennan DO at OR [facility] Right: Knee [employer] 01/01/2024 AR-1588TN-1 / / [id number] 7.5-10.5mm Graftlink Allograft, Frozen Graft Implanted:Qty: 1 on 11/12/2019 by Christopher Brennan DO at OR [facility] Right: Knee [employer] [id number] 09/01/2022 [facility] / [id number] 2 / LOT NA Tightrope Abs Button Rnd 11mm - [id number] Implanted:Qty: 1 on 11/12/2019 by Christopher Brennan DO at OR [facility] Right: Knee [employer] 08/31/2024 AR-1588TB-3 / / [id number] documented as of this encounter Care Teams Train Clerk Relationship Specialty Start Date End Date Carly Gatica MD [address] [place] [address] PCP - General Family Medicine 11/23/20 documented as of this encounter
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
--- OUTSIDE RECORDS SUMMARY | 2024-07-03 12:34 | External Medical Summary | Summary of Care ---
Author Name Unknown Organization [facility] Address [address] [place] [address] Phone [phone] Care Team Providers Care Skein Mercerizing Machine Operator Name Role Phone Carly Gatica MD Primary Care Provid er Reason for Visit * Reason Onset Date Comments Record Retrieval Specialist Documentation 03/19/2024 Encounter Details Date Type Department Care Team ([facility] Contact Info) Description 03/19/2024 Telephone Upsetter Setter Up Obstetrics Maternal Medicine, [place] [address] [place], [place] [phone] Genet Mata, MANAGER SMALL BUSINESS [address] [place] [address] Record Retrieval Specialist Documentation Allergies No known active allergiesdocumented as [...] to care Food insecurity 03/11/2024 Overview: Per [facility] Protocol High-risk 03/07/2024 Obesity in [...] have money to get more. Sometimes true [place] Depression Scale Answer Date Recorded [place] Depression Scale Total 11 03/07/2024 The thought [...] Telephone Encounter - Genet Mata MSW - 03/19/2024 3:41 PM EST Return telephone call received from pt. Pt reports that she was unable to schedule transportation through [facility], due to short notice. Pt was informed by [facility] that she needs to schedule at least 3 daysa head of time to check availability, due to distance of transport. Pt reports she would like [facility] ap pointment rescheduled to be at [facility] if possible. Pt reports that she rescheduled on MyChart. SW made pt aware that the appointment was not scheduled correctly via [facility] and that she needs to call the clinic in order to reschedule. SW to discuss with provider whether pt can be rescheduled [facility]. documented in this encounter Plan of Treatment Upcoming Encounters Date Type Department Care Team (Late st Contact Info) Description 04/10/2024 1:45 PM EST Office Visit Gynecology/Obstetrics [facility] [address] [place] [address] Faith Flood CRNP [address] [place] [address] 04/10/2024 3:15 PM EST Office Visit Gynecology/Obstetrics [facility] [address] [place] [address] Poornima Freeman CRNP [address] [place] [address] 05/06/2024 9:40 AM EST Office Visit [facility] [address] [phone] Carly Gatica MD [address] [place] [address] 08/19/2024 6:00 PM EDT Office Visit [facility] [address] [address] [place] [address] Carly Gatica MD [address] [place] [address] Health Maintenance Due Date Last Done Comments Pneumococcal Vaccine: Pediat rics (0 to 5 Years) and At-Risk Patients (6 to 64 Years) (1 of 2 - PCV) 2008 Depression Monitoring 07/16/2023 07/15/2022 COVID-19 Vaccine (1 [...] this encounter Medical Devices Implanted Type Area Citrus Fruit Colorer Device Identifier Shelf Expiration Date Model / Serial / Lot Btb Tightrope - [id number] Implanted:Qty: 1 on 11/12/2019 by Christopher Brennan, DO at OR [facility] Right: Knee [employer] 01/01/2024 AR-1588BTB / / [id number] Tightrope Abs Implant, Open - [id number] Implanted:Qty: 1 on 11/12/2019 by Christopher Brennan DO at OR [facility] Right: Knee [employer] 01/01/2024 AR-1588TN-1 / / [id number] 7.5-10.5mm Graftlink Allograft, Frozen Graft Implanted:Qty: 1 on 11/12/2019 by Christopher Brennan DO at OR [facility] Right: Knee [employer] [id number] 09/01/2022 [facility] / [id number] 2 / LOT NA Tightrope Abs Button Rnd 11mm - [id number] Implanted:Qty: 1 on 11/12/2019 by Christopher Brennan DO at OR [facility] Right: Knee [employer] 08/31/2024 AR-1588TB-3 / / [id number] documented as of this encounter Additional Health Concerns Active Problems Noted Date Diagnosed Date OB Reminders 03/18/2024 documented as of this encounter Care Teams Skein Mercerizing Machine Operator Relationship Specialty Start Date End Date Carly Gatica MD [address] [place] [facility] [place] [address] PCP - General Family Medicine 11/23/20 documented as of this encounter
--- OUTSIDE RECORDS SUMMARY | 2024-07-03 12:34 | External Medical Summary | Summary of Care ---
Author Name Unknown Organization [facility] Address [address] [place] [address] Phone [phone] Care Team Providers Care Mud Jack Nozzle Worker Name Role Phone Carly Gatica MD Primary Care Provid er Reason for Visit * Reason Onset Date Comments Dye House Helper Documentation 03/22/2024 Encounter Details Date Type Department Care Team ([facility] Contact Info) Description 03/22/2024 Telephone Problem Manager Obstetrics Maternal Medicine, [place] [address] [place], [place] [phone] Genet Mata, RN RESOURCE NURSE [address] [place] [address] Dye House Helper Documentation Allergies No known active allergiesdocumented as of this encounter (statuses as of 03/22/2024) Medications Proventil HFA 108 (90 Base) MCG/ACT [...] as of this encounter (statuses as of 03/22/2024) Active Problems Problem Noted Date Diagnosed Date [...] to care Food insecurity 03/11/2024 Overview: Per [facility] Protocol High-risk 03/07/2024 Obesity in [...] as of this encounter (statuses as of 03/22/2024) Resolved Problems Problem Noted Date Diagnosed Date [...] as of this encounter (statuses as of 03/22/2024) Immunizations Name Administration Dates Next Due DTaP [...] have money to get more. Sometimes true [place] Depression Scale Answer Date Recorded [place] Depression Scale Total 11 03/07/2024 The thought [...] No 02/20/2024 Does the household have a [facility] children[facility] hospitall[facility] source of income? (Household - for [...] Telephone Encounter - Genet Mata MSW - 03/22/2024 1:42 PM EST Telephone call to pt [place]. [facility] informed pt of rescheduled [facility]FM appt in [place] on 04/02 @ 10:45AM. Pt reports she is not sure if she will have transportation for this appointment. Pt has applied for [employer], but is unsure if everything is complete for her to start receiving transport. AIMEE encouraged pt to call [employer] and see if they can provide transportation. AIMEE confirmed that they are open on 04/02, closed . AIMEE provided pt with [place] [employer] number and asked that pt call SW when she has received an answer from [employer]. documented in this encounter Plan of Treatment Upcoming Encounters Date Type Department Care Team (Late st Contact Info) Description 04/02/2024 10:45 AM EST Office Visit Problem Manager OB Maternal Medicine [facility] Nikky Mensah [address] [place] [address] [address] [place] [address] Alex Harris MD [address] [place] [address] 04/02/2024 10:45 AM EST Imaging Maternal Medicine [facility] Rodrigue Mensah[address] [place] [address] 04/10/2024 3:15 PM EST Office Visit Gynecology/Obstetrics [facility] [address] [place] [address] Poornima Freeman CRNP [address] [place] [address] 05/06/2024 9:40 AM EST Office Visit [facility] Niels [place] [place] [address] Carly Gatica MD [address] [place] [address] 08/19/2024 6:00 PM EDT Office Visit [facility] Niels [place] [address] [place] [address] Carly Gatica MD [address] [place] [address] Health Maintenance Due Date Last Done Comments [...] this encounter Medical Devices Implanted Type Area Talent Acquisition Specialist Device Identifier Shelf Expiration Date Model / Serial / Lot Btb Tightyanete - [id number] Implanted:Qty: 1 on 11/12/2019 by Christopher Brennan, DO at OR [facility] Right: Knee [employer] 01/01/2024 AR-1588BTB / / [id number] Tightrope Abs Implant, Open - [id number] Implanted:Qty: 1 on 11/12/2019 by Christopher Brennan DO at OR [facility] Right: Knee [employer] 01/01/2024 AR-1588TN-1 / / [id number] 7.5-10.5mm Graftlink Allograft, Frozen Graft Implanted:Qty: 1 on 11/12/2019 by Christopher Brennan DO at OR [facility] Right: Knee [employer] [id number] 09/01/2022 [facility] / [id number] 2 / LOT NA Tightrope Abs Button Rnd 11mm - [id number] Implanted:Qty: 1 on 11/12/2019 by Christopher Brennan DO at OR [facility] Right: Knee [employer] 08/31/2024 AR-1588TB-3 / / [id number] documented as of this encounter Additional Health Concerns Active Problems Noted Date Diagnosed Date OB Reminders 03/18/2024 documented as of this encounter Care Teams Mud Jack Nozzle Worker Relationship Specialty Start Date End Date Carly Gatica MD PCP - General Family Medicine 11/23/20 documented as of this encounter
--- OUTSIDE RECORDS SUMMARY | 2024-07-03 12:35 | External Medical Summary | Summary of Care ---
Author Name Unknown Organization [facility] Address [address] [place] [address] Phone [phone] Care Team Providers Care Hydraulic Press Tender Name Role Phone Carly Gatica MD Primary Care Provid er Reason for Visit * Reason Comments Outpatient Testing Encounter Details Date Type Department Care Team ([facility] Contact Info) Description 03/07/2024 4:20 PM EST Laboratory Laboratory, [facility] [address] [place] [phone] [facility] [address] [place] [address] Supervision of normal first , antepartum Allergies No known active allergiesdocumented as of this encounter (statuses as of 03/07/2024) Medications Cetirizine HCl 10 MG Oral Tablet [...] as of this encounter (statuses as of 03/07/2024) Active Problems Problem Noted Date Diagnosed Date Supervision of normal first , antepartu m 03/07/2024 Obesity in , antepartum 03/07/2024 Overview (03/07/2024): Class 2 obese: Pre-gravid BMI 35.28 History of hypertension 03/07/2024 Overview (03/07/2024): No on medication at [facility] Marijuana use during 03/07/2024 Suicidal thoughts 04/15/2022 Moderate episode of recurrent major depressive d isorder 07/05/2021 IRAJ (generalized anxiety disorder) 07/05/2021 Hypertension goal BP (blood pressure) < 140/90 0 11/23/2020 Hypertensive left ventricula r hypertrophy, without heart failure 11/23/2020 Overview (03/07/2024): Last echo 2020 Not currently on HTN meds at [facility] BMI 45.0-49.9, adult 09/15/2020 Overview: Per Obesity protocol Morbid obesity due to excess calories 08/07/2006 Overview (06/25/2009): Per Obesity Taxonomy Estimated Date of Delivery Comme nts Yes 07/08/2024 Based on last me nstrual period of 10/02/2023 documented as of this encounter (statuses as of 03/07/2024) Resolved Problems Problem Noted Date Diagnosed Date [...] as of this encounter (statuses as of 03/07/2024) Immunizations Name Administration Dates Next Due DTaP [...] have money to get more. Sometimes true Sawyer Depression Scale Answer Date Recorded Sawyer Depression Scale Total 11 03/07/2024 The thought [...] Gynecology/Obstetrics Samra Ayala [address] [place] [address] Poornima Freeman CRNP [address] [place] [address] 05/06/2024 9:40 AM EST Office Visit [facility] [place] [facility] [address] [facility] [place] [phone] Carly Gatica MD [address] [facility] [facility] [place] [phone] 08/19/2024 6:00 PM EDT Office Visit [facility] [address] [place] [phone] Carly Gatica MD [address] [place] [address] Pending Results Name Type Priority Associated Diagnoses Date /Time TYPE AND SCREEN Lab Routine Supervision of normal first , antepartum 03/07/2024 4:10 PM EST RUBELLA IGG ANTIBODY Lab Routine Supervision of normal first , antepartum 03/07/2024 4:15 PM EST HEPATITIS B SURFACE ANTIGEN Lab Routine Supervision of normal first , antepartum 03/07/2024 4:15 PM EST HIV ANTIGEN & ANTIBODY SCREEN W/ CONFIRMATION Lab Routine Supervision of normal first , antepartum 03/07/2024 4:15 PM EST ABO/RH Lab Routine Supervision of normal first , antepartum 03/07/2024 4:17 PM EST CBC WITH WBC DIFFERENTIAL AND ANEMIA REFLEX WORKUP Lab Routine Supervision of normal first , antepartum 03/07/2024 4:15 PM EST HEPATITIS C ANTIBODY SCREEN WITH PROGRESSION TO HEPATITIS C RNA QUANTITATIVE Lab Routine Supervision of normal first , antepartum 03/07/2024 4:15 PM EST SYPHILIS ANTIBODY SCREEN WITH REFLEX TO RPR Lab Routine Supervision of normal first , antepartum 03/07/2024 4:15 PM EST ANEMIA CBC Lab Routine Supervision of normal first , antepartum 03/07/2024 4:15 PM EST DIFFERENTIAL, AUTOMATED Lab Routine Supervision of normal first , antepartum 03/07/2024 4:15 PM EST ANEMIA REFLEX CHEMISTRY HOLD Lab Routine Supervision of normal first , antepartum 03/07/2024 4:15 PM EST HEPATITIS C ANTIBODY Lab Routine Supervision of normal first , antepartum 03/07/2024 4:15 PM EST HEPATITIS C RNA ADD ON Lab Routine Supervision of normal first , antepartum 03/07/2024 4:15 PM EST SYPHILIS ANTIBODY SCREEN Lab Routine Supervision of normal first , antepartum 03/07/2024 4:15 PM EST Health Maintenance Due Date Last Done Comments Depression Monitoring 07/16/2023 07/15/2022 COVID-19 Vaccine ( season) 2023 GFR 08/22/2024 08/23/2023, 04/03, 12/21/2020, Additional history exists Gonorrhea / Chlamydia Screen 10/29/2024 10/30/2023, 12/21/2020, 09/14/2018 Yearly Wellness Visit 10/29/2024 10/30/2023 , 07/05/2021, 03/12/2020, Additional history exists DTap/Tdap Vaccines (6 - Td or Tdap) 04/23/2025 04/23/2015, 07/07/2008, 12/18/2003, Additional history exists Pap Smear 10/29/2026 10/30/2023 Hepatitis B Vaccine Completed 03/06/2003, 2002, 2002 HPV (Gardasil) Vaccine Completed 11/30/2015, 2015 MENINGOCOCCAL (MENACTRA/MENVEO) Completed 03/12/2020, 03/12/2020, 04/23/2015 Albumin/Creatinine Ratio Discontinued 024, 04/15/2022, 07/05/2021 Influenza Vaccine (FLU shot) Completed 03/07/2024, 04/15/2022, 03/12/2020, Additional history exists Pneumococcal Vaccine: Pediatrics (0 to 5 Years) and At-Risk Patients (6 to 64 Years) Aged Out No longer eligible based on patient's age to complete this topic documented as of this encounter Medical Devices Implanted Type Area Loss Prevention Lead Device Identifier Shelf Expiration Date Model / Serial / Lot Btb Tightrope - [id number] Implanted:Qty: 1 on 11/12/2019 by Christopher Brennan DO at [facility] Right: Knee [employer] 01/01/2024 AR-1588BTB / / [id number] Tightrope Abs Implant, Open - [id number] Implanted:Qty: 1 on 11/12/2019 by Christopher Brennan DO at [facility] Right: Knee [employer] 01/01/2024 AR-1588TN-1 / / [id number] 7.5-10.5mm Graftlink Allograft, Frozen Graft Implanted:Qty: 1 on 11/12/2019 by Christopher Brennan DO at [facility] Right: Knee [employer] [id number] 09/01/2022 [facility] / [id number] / LOT NA Tightrope Abs Button Rnd 11mm - [id number] Implanted:Qty: 1 on 11/12/2019 by Christopher Brennan DO at [facility] Right: Knee [employer] 08/31/2024 AR-1588TB-3 / / [id number] documented as of this encounter Visit Diagnoses Diagnosis Supervision of normal first , antepartum documented in this encounter Care Teams Hydraulic Press Tender Relationship Specialty Start Date End Date Carly Gatica MD [address] [place] [address] PCP - General Family Medicine 11/23/20 documented as of this encounter
--- OUTSIDE RECORDS SUMMARY | 2024-07-03 12:35 | External Medical Summary | Summary of Care ---
Author Name Unknown Organization [facility] Address [address] [place] [address] Phone [phone] Care Team Providers Care Slide Fastener Repairer Name Role Phone Carly Gatica MD Primary Care Provid er Reason for Referral * Evaluate & Treat - Unlimited Visits (Within 10 days (routine)) - Pending Review Specialty Diagnoses / Procedures Referred By Calixto mcdonald Referred To Contact Cardiovascular Medicine / Cardiology Diagnoses Obesity in , antepartum Hypertensive left ventricular hypertrophy, without heart failure Radha Hollis MD [address] [place] [address] Phone: tel: fax: Referral ID Status Reason Start Date Expiration Date Visits Requested Visits Authorized [id number] Pending Review Specialty Services Required [phone] Question Answer Referral Priority Within 10 days (routine) Where should this appointment be scheduled? [facility] To which of the following clinics are you referring your patient? General Cardiology Clinic Comments Patient with history of hypertension and LVH on echocardiography * Social Care (Within 3 days (urgent)) - Pending Review Specialty Diagnoses / Procedures Referred By Calixto mcdonald Referred To Contact Lehr Tender Diagnoses Marijuana use during Radha Hollis MD [address] [place] [address] Phone: tel: fax: Referral ID Status Reason Start Date Expiration Date Visits Requested Visits Authorized [id number] Pending Review Specialty Services Required [phone] Question Answer Referral Priority Within 3 days (urgent) Where should this appointment be scheduled? [facility] Role Woman's/OB Social Work Comments Is patient being transitioned from [facility] to Complex Case Management? No Patient is currently in a retirement Reason for Visit * Evaluate & Treat - Unlimited Visits (Within 10 days (routine)) - Pending Review Specialty Diagnoses / Procedures Referred By Contkanu t Referred To Contact Obstetrics/Gynecology / Maternal Medicine Diagnoses Supervision of normal first , antepartum Obesity in , antepartum History of hypertension Hypertensive left ventricular hypertrophy, without heart failure Marijuana use during Depression complicating , antepartum Need for prophylactic vaccination and inoculation against influenza Kayley Hopson PA-C [address] [place] [address] Phone: tel: fax: Referral ID Status Reason Start Date Expiration Date Visits Requested Visits Authorized [id number] Pending Review Specialty Services Required 03/08/[phone] Encounter Details Date Type Department Care Team (Late st Contact Info) Description 03/12/2024 1:00 PM EST Telemedicine Business Loan Processor Obstetrics Maternal Medicine, [place] [address] [place], [place] [phone] Radha Hollis MD [address] [place] [address] Obesity in , antepartum*; Marijuana use during ; Hypertensive left ventricular hypertrophy, without heart failure; Mild intermittent asthma with exacerbation; IRAJ (generalized anxiety disorder); 23 weeks gestation of Allergies No known active allergiesdocumented as of this encounter (statuses as of 03/12/2024) Medications Cetirizine HCl 10 MG Oral Tablet [...] as of this encounter (statuses as of 03/12/2024) Active Problems Problem Noted Date Diagnosed Date [...] as of this encounter (statuses as of 03/12/2024) Resolved Problems Problem Noted Date Diagnosed Date [...] as of this encounter (statuses as of 03/12/2024) Immunizations Name Administration Dates Next Due DTaP [...] have money to get more. Sometimes true [place] Depression Scale Answer Date Recorded [place] Depression Scale Total 11 03/07/2024 The thought [...] as of this encounter Progress Notes * Radha Hollis MD - 03/12/2024 2:57 PM EST MATERNAL MEDICINE CONSULT Gerard Dunbar 03/12/2024 REFERRING PROVIDER: Kayley Hopson PA-C Gerard is a 23 year old with intrauterine at 23w1d who presents today for an MFM consult due to History of LVH and chronic hypertension Class 3 obesity Housing difficulty. Marijuana use in Generalized anxiety disorder HPI/CURRENT : pre- BMI=class 2 obesity (260#; 5'8"); FOB #1; [facility] (from 02/20/24 to present) Problem Noted Diagnosed Resolved Mild intermittent asthma with exacerbation 03/12/2024 by Radha Hollis MD No 23 weeks gestation of 03/11/2024 by Radha Hollis MD No Overview Signed 03/12/2024 2:57 PM by Radha Hollis MD Late to care Supervision of normal first , antepartum 03/07/2024 by Kayley Hopson PA-C No Obesity in , antepartum 03/07/2024 by Kayley Hopson PA-C No Overview Signed 03/07/2024 2:47 PM by Kayley Hopson PA-C Class 2 obese: Pre-gravid BMI 35.28 History of hypertension 03/07/2024 by Kayley Hopson PA-C No Overview Signed 03/07/2024 2:54 PM by Kayley Hopson PA-C No on medication at [facility] Marijuana use during 03/07/2024 by Kayley Hopson PA-C No Overview Signed 03/12/2024 2:55 PM by Radha Hollis MD Patient reports use of Marijuana. She is trying to discontinue use IRAJ (generalized anxiety disorder) 07/05/2021 by Carly Gatica MD No Overview Signed 03/12/2024 1:15 PM by Radha Hollis MD Patient currently stable in terms of her mood and denies any thoughts of self harm. Has support from her siblings. Hypertensive left ventricular hypertrophy, without heart failure 11/23/2020 by Carly Gatica MD No Overview Addendum 03/12/2024 2:52 PM by Radha Hollis MD Overview Patient with chronic hypertension in the context of morbid obesity. AT 18 she was diagnosed and hadechocardiogram showing borederline LVH. Corky has since lost weight, and her BPs have become normal/mildy elevated without medications. No cardiac symptoms. No recent cardiology evaluation. Last echo 08/19/2020 Interpretation Summary There is borderline concentric left ventricular hypertrophy. The left ventricular systolic function is qualitatively normal . There is not a coarctation of the aorta. Not currently on HTN meds at [facility] Latest EKG I have reviewed this patient's previous OB ultrasound reports, pertinent labwork and testing provided by her referring OB provider. Current Outpatient Medications Medication Sig Dispense Refill [...] No current facility-administered medications for this visit. OB History Para Term AB Living 1 0 0 0 0 0 SAB IAB Ectopic Multiple Live Births 0 0 0 0 # Outcome Date GA Lbr Yair/2nd Weight Sex Type Anes PTL Lv 1 Current Review of patient's allergies indicates: No Known Allergies Past Medical History: Diagnosis Date Asthma, severity to be determined Obesity, BMI not known Varicella without complication 5-04 Past Surgical History: Procedure Laterality Date CREATE EARDRUM OPENING,LOCAL ANESTH 2003 Tympanostomy tubes KNEE ARTHROSCOPY/MENISCECTOMY Right 11/12/2019 ARTHROSCOPY KNEE MEDIAL OR LATERAL MENISCECTOMY performed by Christopher Brennan DO at [facility] KNEE ARTHROSCOPY/MENISCUS REPAIR Right 11/12/2019 ARTHROSCOPY KNEE WITH MENISCUS REPAIR performed by Christopher Brennan DO at OR [facility] KNEE ARTHROSCOPY/REPAIR LIGAMENT Right 11/12/2019 ARTHROSCOPICALLY AIDED ACL RECONSTRUCTION performed by Christopher Bernnan DO at OR [facility] Family History Problem Relation Name Age of Onset Obesity Mother Obesity Father Hypertension Father Endocrine Disorder Father hypercholesterolemia Hypertension Grandfather (Paternal) Blood Disorder Aunt (Unspecified) sickle cell anemia Blood Disorder Other sickle cell anemia Hypertension Uncle (Unspecified) Social History Tobacco Use Smoking status: Never Smokeless tobacco: Never Substance Use Topics Alcohol use: No Drug use: No Social History Substance and Sexual Activity Drug Use No REVIEW OF SYSTEMS: headaches: no nausea/vomiting: denies reports movement: yes abdominal pain/tenderness/cramping/contractions: no vaginal bleeding: no vaginal leaking of fluid: no leg pain/tenderness: no all other systems negative PHYSICAL EXAM: LMP 10/02/2023 General: pleasant, alert and oriented DISCUSSION/RECOMMENDATIONS: Obesity in , antepartum Assessment & Plan: CONSIDERATIONS: Discussed obstetrical risks associated with class [...] recommend weekly surveillance starting at 37 weeks. Orders: - CARDIOLOGY REFERRAL OP Marijuana use during Assessment & Plan: CONSIDERATIONS: Chemicals found in marijuana, such as [...] which there are better -specific safety data. Orders: - Population Health Referral OP Hypertensive left ventricular hypertrophy, without heart failure Assessment & Plan: Discussion Patient was counseled on the diagnosis [...] zero as she has no prior cardiac eventsand has required no cardiac interventions. The risk [...] weeks. Serial MFM growth scans as indicated Orders: - CARDIOLOGY REFERRAL OP Mild intermittent asthma with exacerbation Assessment & Plan: CONSIDERATIONS: Asthma symptoms may improve, worsen or remain unchanged in severity in . Asthma is generally managed the same in as in the non- patient, as asthma-controlmedications are considered safe in . If asthma [...] weeks. surveillance with growth ultrasounds and non-stress testsshould be considered starting at 32 weeks. IRAJ (generalized anxiety disorder) Assessment & Plan: CONSIDERATIONS: Untreated maternal anxiety and/or depression may be associated with an increased risk of multiple poor obstetrical outcomes including miscarriages, low weight, and delivery. Women with a history of anxiety or depression are at risk for recurrence both during and/or the period. Studies of first-trimester SSRI exposure do not demonstrate consistent data to support an increasedrisk for structural malformations. Anti-anxiety or depression medications have been associated with transient effects (withdrawal syndrome). RECOMMENDATIONS: Mental illness can and should be treated during when the benefits of treatment outweigh potential risks. Referral to behavioral health services as clinically indicated. 23 weeks gestation of Radha Hollis MD 03/12/2024 2:57 PM I have discussed the patient's management with the medical trainee and agree with the note. Please refer to the documented findings and plan of care. This patient's visit today consisted of a telemedicine visit using real time audio/video technology. I personally interacted with the patient via this technology and confirmed the findings as documented. Britta Moore DO documented in this encounter Miscellaneous Notes * Assessment & Plan Note - Radha Hollis MD - 03/12/2024 2:59 PM ESTAssociated Problem(s): Marijuana use during CONSIDERATIONS: Chemicals found in marijuana, such as [...] which there are better -specific safety data. * Assessment & Plan Note - Radha Hollis MD - 03/12/2024 2:56 PM ESTAssociated Problem(s): IRAJ (generalized anxiety disorder) CONSIDERATIONS: Untreated maternal anxiety and/or depression may be associated with an increased risk of multiple poor obstetrical outcomes including miscarriages, low weight, and delivery. Women with a history of anxiety or depression are at risk for recurrence both during and/or the period. Studies of first-trimester SSRI exposure do not demonstrate consistent data to support an increasedrisk for structural malformations. Anti-anxiety or depression medications have been associated with transient effects (withdrawal syndrome). RECOMMENDATIONS: Mental illness can and should be treated during when the benefits of treatment outweigh potential risks. Referral to behavioral health services as clinically indicated. * Assessment & Plan Note - Radha Hollis MD - 03/12/2024 2:53 PM ESTAssociated Problem(s): Mild intermittent asthma with exacerbation CONSIDERATIONS: Asthma symptoms may improve, worsen or remain unchanged in severity in . Asthma is generally managed the same in as in the non- patient, as asthma-controlmedications are considered safe in . If asthma [...] therapy for all patients except those with intermittentasthma. If patients are routinely requiring rescue inhaler [...] weeks. surveillance with growth ultrasounds and non-stress testsshould be considered starting at 32 weeks. * Assessment & Plan Note - Radha Hollis MD - 03/12/2024 2:52 PM ESTAssociated Problem(s): Obesity in , antepartum CONSIDERATIONS: Discussed obstetrical risks associated with class [...] recommend weekly surveillance starting at 37 weeks. * Assessment & Plan Note - Radha Hollis MD - 03/12/2024 1:55 PM ESTAssociated Problem(s): Hypertensive left ventricular hypertrophy, without heart failure Discussion Patient was counseled on the diagnosis [...] zero as she has no prior cardiac eventsand has required no cardiac interventions. The risk [...] weeks. Serial MFM growth scans as indicated documented in this encounter Plan of Treatment Upcoming Encounters Date Type Department Care Team (Late st Contact Info) Description 03/19/2024 12:30 PM EST Office Visit [facility] Obstetrics Maternal Medicine, [address] [address] Britta Moore [place] [address] 03/19/2024 12:30 PM EST Imaging Radiology [facility] [place] [address] [place] [address] 04/10/2024 3:15 PM EST Office Visit Gynecology/Obstetrics [facility] [address] [place] [address] Poornima Freeman CRNP [address] [place] [address] 05/06/2024 9:40 AM EST [facility] [address] [facility] [place] [phone] Carly Gatica MD [address] [facility] [place] [id number] 08/19/2024 6:00 PM EDT Office Visit [facility] [address] [facility] [address] [facility] [place] [phone] Carly Gatica MD [address] [facility] [place] [address] Scheduled Referrals Name Type Priority Associated Diagnoses Orde r Schedule POPULATION HEALTH REFERRAL OP Referral Within 3 days (urgent) Marijuana use during Ordered: 03/12/2024 CARDIOLOGY REFERRAL OP Referral Within 10 days (routine) Obesity in , antepartum Hypertensive left ventricular hypertrophy, without heart failure Ordered: 03/12/2024 Health Maintenance Due Date Last Done Comments [...] this encounter Medical Devices Implanted Type Area Shake Maker Device Identifier Shelf Expiration Date Model / Serial / Lot Btb Tightrope - [id number] Implanted:Qty: 1 on 11/12/2019 by Christopher Brennan, DO at OR [facility] Right: Knee [employer] 01/01/2024 AR-1588BTB / / [id number] Tightrope Abs Implant, Open - [id number] Implanted:Qty: 1 on 11/12/2019 by Christopher Brennan DO at OR [facility] Right: Knee [employer] 01/01/2024 AR-1588TN-1 / / [id number] 7.5-10.5mm Graftlink Allograft, Frozen Graft Implanted:Qty: 1 on 11/12/2019 by Christopher Brennan DO at OR [facility] Right: Knee [employer] [id number] 09/01/2022 [facility] / [id number] 2 / LOT NA Tightrope Abs Button Rnd 11mm - [id number] Implanted:Qty: 1 on 11/12/2019 by Christopher Brennan DO at OR [facility] Right: Knee [employer] 08/31/2024 AR-1588TB-3 / / [id number] documented as of this encounter Visit Diagnoses Diagnosis Obesity in , antepartum- Primary Obesity complicating , childbirth, or the puerperium, antepartum condition or complication Marijuana use during Hypertensive left ventricular hypertrophy, without heart failure Mild intermittent asthma with exacerbation Unspecified asthma, with exacerbation IRAJ (generalized anxiety disorder) Generalized anxiety disorder 23 weeks gestation of state, incidental documented in this encounter Care Teams Slide Fastener Repairer Relationship Specialty Start Date End Date Carly Gatica MD [address] [place] [address] PCP - General Family Medicine 11/23/20 documented as of this encounter
--- OUTSIDE RECORDS SUMMARY | 2024-07-03 12:35 | External Medical Summary | Summary of Care ---
Author Name Unknown Organization [facility] Address [address] [place] [address] Phone [phone] Care Team Providers Care Parking Lot Supervisor Name Role Phone Carly Gatica MD Primary Care Provid er Reason for Visit * Reason Onset Date Comments Referral 03/08/2024 Encounter Details Date Type Department Care Team ([facility] Contact Info) Description 03/08/2024 Telephone Processing Analyst Obstetrics Maternal Medicine [facility], [place] [address] [facility] [place] [phone] Nurse Referral Allergies No known active allergiesdocumented as of this encounter (statuses as of 03/08/2024) Medications Cetirizine HCl 10 MG Oral Tablet [...] as of this encounter (statuses as of 03/08/2024) Active Problems Problem Noted Date Diagnosed Date [...] as of this encounter (statuses as of 03/08/2024) Resolved Problems Problem Noted Date Diagnosed Date [...] as of this encounter (statuses as of 03/08/2024) Immunizations Name Administration Dates Next Due DTaP [...] have money to get more. Sometimes true [place] Depression Scale Answer Date Recorded [place] Depression Scale Total 11 03/07/2024 The thought [...] encounter Miscellaneous Notes * Telephone Encounter - Rosa Maria Baig OSA - 03/08/2024 12:59 PM EST Spoke with Gerard. Appointment scheduled. Patient aware of date, time and location of Maternal Medicine appointment. * Telephone Encounter - Daria Clemons MED ASSIST - 03/08/2024 11:35 AM EST Estimated Date of Delivery: 07/08/24 Please schedule for 60 MINUTE CONSULT SIMPLE MEDICAL WITH FELLOW , in time frame of within 1-2 weeks at location [facility] with the indication of hypertensive left ventricular hypertrophy without heart failure, history hypertension, class 2, depression no Rx, marijuana use, late to care. Please schedule anatomy within 1-2 weeks. Referring Provider: Kayley Hopson PA-C documented in this encounter Plan of Treatment Upcoming Encounters Date Type Department Care Team (Late st Contact Info) Description 03/12/2024 1:00 PM EST Telemedicine Processing Analyst Obstetrics Maternal Medicine, [place] [address] [place] [address] Radha Hollis MD [address] [place] [address] 03/19/2024 12:30 PM EST Office Visit Processing Analyst Obstetrics Maternal Medicine, [place] [address] [place] [address] Britta Moore DO [address] [place] [address] 03/19/2024 12:30 PM EST Imaging Radiology [facility] [place] [address] [place] [address] 04/10/2024 3:15 PM EST Office Visit Gynecology/Obstetrics Samra Ayala [address] [place] [address] Poornima Freeman CRNP [address] [place] [address] 05/06/2024 9:40 AM EST Office Visit [address] [place] [phone] Carly Gatica MD [address] [place] [address] 08/19/2024 6:00 PM EDT Office Visit Family Practice, [place] [address] [place] [phone] Carly Gatica MD [address] [place] [address] Health Maintenance Due Date Last Done Comments Depression Monitoring 07/16/2023 07/15/2022 COVID-19 Vaccine ( season) 2023 Yearly Wellness Visit 10/29/2024 10/30/2023 , 07/05/2021, 03/12/2020, Additional history exists GFR 03/07/2025 03/07/2024, 08/02, 04/15/2022, Additional history exists Gonorrhea / Chlamydia Screen 03/07/2025 03/07/2024, 10/30/2023, 12/21/2020, Additional history exists DTap/Tdap Vaccines [...] this encounter Medical Devices Implanted Type Area Electrical Maintenance Supervisor Device Identifier Shelf Expiration Date Model / Serial / Lot Btb Tightrope - [id number] Implanted:Qty: 1 on 11/12/2019 by Christopher Brennan DO at OR [facility] Right: Knee [employer] 01/01/2024 AR-1588BTB / / [id number] Tightrope Abs Implant, Open - [id number] Implanted:Qty: 1 on 11/12/2019 by Christopher Brennan DO at OR [facility] Right: Knee [employer] 01/01/2024 AR-1588TN-1 / / [id number] 7.5-10.5mm Graftlink Allograft, Frozen Graft Implanted:Qty: 1 on 11/12/2019 by Christopher Brennan DO at OR [facility] Right: Knee [employer] [id number] 09/01/2022 [facility] / [id number] / LOT NA Tightrope Abs Button Rnd 11mm - [id number] Implanted:Qty: 1 on 11/12/2019 by Christopher Brennan DO at OR [facility] Right: Knee [employer] 08/31/2024 AR-1588TB-3 / / [id number] documented as of this encounter Care Teams Parking Lot Supervisor Relationship Specialty Start Date End Date Carly Gatica MD [address] [place] [address] PCP - General Family Medicine 11/23/20 documented as of this encounter
--- OUTSIDE RECORDS SUMMARY | 2024-07-03 12:35 | External Medical Summary | Summary of Care ---
Author Name Unknown Organization [facility] Address [address] [place] [address] Phone [phone] Care Team Providers Care Cte Teacher Name Role Phone Carly Gatica MD Primary Care Provid er Encounter Details Date Type Department Care Team ([facility] Contact Info) Description 03/08/2024 [facility] [address] [place] [address] Kayley Hopson PA-C [address] [facility] [place] [address] Allergies No known active allergiesdocumented as of [...] have money to get more. Sometimes true [place] Depression Scale Answer Date Recorded [place] Depression Scale Total 11 03/07/2024 The thought [...] encounter Miscellaneous Notes * Telephone Encounter - Kayley Hopson PA-C - 03/08/2024 3:32 PM EST Please make aware labs showed she is slighly anemic. Hgb 11.5. She should ensure taking once daily vitamin as it has iron in it. We did send one to pharmacy yesterday for her. She can also try to increase iron in diet through iron rich foods like eggs, green leafy vegetables and iron fortified cereal. We will plan to recheck labs in a few weeks and reassess. Blood type O +. She is immune to rubella virus. Kayley Hopson PA-C documented in this encounter Plan of Treatment Upcoming Encounters Date Type Department Care Team (Late st Contact Info) Description 03/12/2024 1:00 PM EST Telemedicine [facility] Obstetrics Maternal Medicine, [place] [address] [place] [address] Radha Hollis MD [address] [place] [address] 03/19/2024 12:30 PM EST Office Visit [facility] Obstetrics [facility]aternal Medicine, [place] [address] [place] [address] Britta Moore DO [address] [place] [address] 03/19/2024 12:30 PM EST Imaging Radiology [facility] [address] [place] [address] 04/10/2024 3:15 PM EST Office Visit Gynecology/Obstetrics [facility] [address] [place] [address] Poornima Freeman CRNP [address] [place] [address] 05/06/2024 9:40 AM EST Office Visit [facility] [address] [facility] [place] [phone] Carly Gatica MD [address] [place] [address] 08/19/2024 6:00 PM EDT Office Visit Family [place], [place] [address] [place] [address] [place] [phone] Carly Gatica MD [address] [place] [address] Health Maintenance Due Date Last Done Comments [...] this encounter Medical Devices Implanted Type Area Superintendent Building Device Identifier Shelf Expiration Date Model / Serial / Lot Btb Tightrope - [id number] Implanted:Qty: 1 on 11/12/2019 by Christopher Brennan DO at OR [facility] Right: Knee [employer] 01/01/2024 AR-1588BTB / / [id number] Tightrope Abs Implant, Open - [id number] Implanted:Qty: 1 on 11/12/2019 by Christopher Brennan DO at OR [facility] Right: Knee [employer] 01/01/2024 AR-1588TN-1 / / [id number] 7.5-10.5mm Graftlink Allograft, Frozen Graft Implanted:Qty: 1 on 11/12/2019 by Christopher Brennan DO at OR [facility] Right: Knee [employer] [id number] 09/01/2022 [facility] / [id number] 2 / LOT NA Tightrope Abs Button Rnd 11mm - [id number] Implanted:Qty: 1 on 11/12/2019 by Christopher Brennan DO at OR [facility] Right: Knee [employer] 08/31/2024 AR-1588TB-3 / / [id number] documented as of this encounter Care Teams Cte Teacher Relationship Specialty Start Date End Date Carly Gatica MD [address] [place] [address] PCP - General Family Medicine 11/23/20 documented as of this encounter
--- OUTSIDE RECORDS SUMMARY | 2024-07-03 12:35 | External Medical Summary ---
Author Name Unknown Address Unknown Organization K01:[facility] [place] [address] [place] [address] Laboratory Report Ordering Provider Test Date Status DMITRY LAZARO 03/07/2024 16:17:17 Final Observation Date Value Abnormality Reference (Units ) Status ABO 03/07/2024 16:17:17 O Final RH 03/07/2024 16:17:17 Positive Final Performing Location [facility] [address] [place] [address]
--- OUTSIDE RECORDS SUMMARY | 2024-07-03 12:35 | External Medical Summary | Summary of Care ---
Author Name Unknown Organization [facility] Address [address] [place] [address] Phone [phone] Care Team Providers Care Video Library Assistant Name Role Phone Carly Gatica MD Primary Care Provid er Reason for Referral * Evaluate & Treat - Unlimited Visits (Within 10 days (routine)) - Pending Review Specialty Diagnoses / Procedures Referred By Calixto mcdonald Referred To Contact Obstetrics/Gynecology / Maternal Medicine Diagnoses Supervision of normal first , antepartum Obesity in , antepartum History of hypertension Hypertensive left ventricular hypertrophy, without heart failure Marijuana use during Depression complicating , antepartum Need for prophylactic vaccination and inoculation against influenza Kayley Hopson PA-C [address] [place] [address] Phone: tel: fax: Referral ID Status Reason Start Date Expiration Date Visits Requested Visits Authorized [id number] Pending Review Specialty Services Required 03/08/[phone] Question Answer Referral Priority Within 10 days (routine) Has the patient had a viability scan? Yes Date performed 02/03/2024 Location performed Radiology Reason for referral Other Please provide additional details class 2 obese, history of HTN, hypertensive LVH without heart failure, marijuana use, depression, last care Where should this appointment be scheduled? [facility] Comments /Para: LMP: Patient's last menstrual period was 10/02/2023. Patient is . AMRIT: 07/08/2024, by Last Menstrual Period Pre-Gravid BMI: 35.28 * Evaluate & Treat - Unlimited Visits (Within 30 days (routine)) - Pending Review Specialty Diagnoses / Procedures Referred By Calixto mcdonald Referred To Contact Nurse Educator Diagnoses Supervision of normal first , antepartum Kayley Hopson PA-C [address] [place] [address] Phone: tel: fax: Referral ID Status Reason Start Date Expiration Date Visits Requested Visits Authorized [id number] Pending Review Specialty Services Required 03/07/[phone] Question Answer Referral Priority Within 30 days (routine) Where should this appointment be scheduled? [facility] Comments County of Residence: [place] Estimated Date of Delivery: 07/08/24 Planned Location: [facility] Reason for Visit * Reason Onset Date Comments New Visit Medication Administration 03/07/2024 Flu an d/or Pneumo Inj Encounter Details Date Type Department Care Team (Late st Contact Info) Description 03/07/2024 2:30 PM EST Office Visit Gynecology/Obstetric s Samra Ayala [address] [place] [address] Kayley Hopson PA-C [address] [place] [id number] Supervision of normal first , antepartum*; Obesity in , antepartum; History of hypertension; Hypertensive left ventricular hypertrophy, without heart failure; Marijuana use during ; Depression complicating , antepartum; Need for prophylactic vaccination and inoculation against influenza Allergies No known active allergiesdocumented as of this encounter (statuses as of 03/08/2024) Medications Cetirizine HCl 10 MG Oral Tablet (ZyrTEC) Take by mouth 1 Tablet daily as needed for Other (allergies). 90 Tablet 1 07/10/19 22 Active Additional Information Patient not taking.Reported on 03/07/2024 Proventil HFA 108 (90 Base) MCG/ACT Inhalation Aerosol SolutionIndicat ions:Acute non-recurrent maxillary sinusitis Inhale 2 Puffs by mouth every 4 hours as needed for Wheezing. 18 g 3 08/15/19 24 Active Plus 27-1 MG Oral TabletIndicatio ns:Supervision of normal first , antepartum Take 1 Tablet by mouth in the morning. 100 Tablet 3 03/07/20 24 Active Blood Pressure CuffIndications :History of hypertension For monitoring blood pressure 1 Each 03/07/20 24 Active Blood Pressure Monitoring (MICROLIFE BPM2 BP MONITOR) KIT Monitor BP as directed 1 Kit 11/13/19 024 Discontinued documented as of this encounter (statuses as [...] have money to get more. Sometimes true [place] Depression Scale Answer Date Recorded [place] Depression Scale Total 11 03/07/2024 The thought [...] Sign Reading Time Taken Comments Blood Pressure 136/74 03/07/2024 2:30 PM EST Pulse - - Temperature - - Respiratory Rate - - Oxygen Saturation - - Inhaled Oxygen Concentration - - Weight 117.9 kg (260 lb) 03/07/2024 2:30 PM EST Height 172.7 cm (5' 8") 03/07/2024 2:30 PM EST Body Mass Index 39.53 03/07/2024 2:30 PM EST documented in this encounter Progress Notes * Kayley Hopson PA-C - 03/07/2024 2:50 PM EST CC: NOB HPI: Gerard Dunbar is a 23 year old female here for initial OB exam. AMRIT 07/08/2024 by LMP. Viability ultrasound completed 02/03/2024 indicating single fetus 17w3d. Had anatomy ultrasound through our clinic 02/28/2024. AMRIT by LMP. Currently living in skilled nursing. FOB involved, they are working on how they may co-parent. Has support of friends. Also established with [facility]. She is taking vitamins. She plans to breastfeed . Reviewed PMH, social hx, family hx, surgical hx, ob hx with patient. Pertinent positives: - History of HTN and LVH when younger, around 2020. Lost weight and HTN resolved. PCP managing both. - Class 2 obese - Marijuana user: illicit per patient. Has cut back and and is working towards stopping. - Depression: pt states managing on her own most days. Declines medication and counseling. Denies SI or thoughts of self harm. Reports has passive thoughts of harming people in her skilled nursing. No activethoughts per patient. Would never act on them. Current symptoms: none Discussed Qnatal and Quad screen. Reviewed urrent medications with patient. Last pap smear 10/2023 normal [place] Depression Scale: [place] Depression Scale Total: (Patient-Rptd) 11 [place] suicide question and score: Score of 3 = Yes, quite often. Score of 2 = Sometimes. Score of 1 = Hardly ever The thought of harming myself has occurred to me.: (Patient-Rptd) 1 OB History Para Term AB Living 1 0 0 0 0 0 SAB IAB Ectopic Multiple Live Births 0 0 0 0 # Outcome Date GA Lbr Yair/2nd Weight Sex Type Anes PTL Lv 1 Current Past Medical History: Diagnosis Date Asthma, severity to be determined Obesity, BMI not known Varicella without complication 5-04 Social History Socioeconomic History Marital status: Single Spouse name: na Number of children: 0 Years of education: 0 Occupational History Occupation: student Tobacco Use Smoking status: Never Smokeless tobacco: Never Substance and Sexual Activity Alcohol use: No Drug use: No Sexual activity: Yes Partners: Male Social Needs Financial Resource Strain: Low Risk (02/20/2024) Financial Resource Strain Do you have any trouble paying for your medications, or do you think you might in the future? (Adult - for ages 18 years and over): No Food Insecurity: Food Insecurity Present (02/20/2024) Food Insecurity Do you need food for this week? (Adult - for ages 18 years and over): Yes Transportation Needs: Unmet Transportation Needs (02/20/2024) Transportation Needs Has lack of transportation kept you from medical appointments, meetings, work, or from getting things needed for daily living? Check all that apply. (Adult - for ages 18 years and over): Yes, it has kept me from medical appointments Social Connections: Socially Isolated (02/20/2024) Social Connections How often do you feel lonely or isolated from those around you? (Adult - for ages 18 years and over): Always Housing Stability: High Risk (02/20/2024) Housing Stability Do you currently live in a skilled nursing or have no steady place to sleep at night? (Adult - for ages 18 years and over): Yes Are you homeless or worried that you might be in the future? (Adult - for ages 18 years and over): Yes Past Surgical History: Procedure Laterality Date CREATE EARDRUM OPENING,LOCAL ANESTH 2004 Tympanostomy tubes KNEE ARTHROSCOPY/MENISCECTOMY Right 11/12/2019 ARTHROSCOPY KNEE MEDIAL OR LATERAL MENISCECTOMY performed by Christopher Brennan DO at OR [facility] KNEE ARTHROSCOPY/MENISCUS REPAIR Right 11/12/2019 ARTHROSCOPY KNEE WITH MENISCUS REPAIR performed by Christopher Brennan DO at OR [facility] KNEE ARTHROSCOPY/REPAIR LIGAMENT Right 11/12/2019 ARTHROSCOPICALLY AIDED ACL RECONSTRUCTION performed by Christopher Brennan DO at OR [facility] Current Outpatient Medications Medication Sig Dispense Refill Proventil HFA 108 (90 Base) MCG/ACT Inhalation Aerosol Solution Inhale 2 Puffs by mouth every 4 hours as needed for Wheezing. 18 g 3 Blood Pressure Monitoring ([employer] BPM2 BP MONITOR) KIT Monitor BP as directed (Patient not taking: Reported on 03/07/2024) 1 Kit 0 Cetirizine HCl 10 MG Oral Tablet (ZyrTEC) Take by mouth 1 Tablet daily as needed for Other (allergies). (Patient not taking: Reported on 03/07/2024) 90 Tablet 1 No current facility-administered medications for this visit. Review of patient's allergies indicates: No Known Allergies Family History Problem Relation Name Age of Onset Obesity Mother Obesity Father Hypertension Father Endocrine Disorder Father hypercholesterolemia Hypertension Grandfather (Paternal) Blood Disorder Aunt (Unspecified) sickle cell anemia Blood Disorder Other sickle cell anemia Hypertension Uncle (Unspecified) Denies family history of genetic conditions in patient's and FOB's families. ROS: General: no fevers, chills CV: no chest pain, SOB GI: no constipation, diarrhea, nausea Breast: no masses, nipple discharge, tenderness : no vaginal bleeding, unusual vaginal discharge, dysuria Psychological: no anxiety, depression, SI/HI PHYSICAL EXAM: please see physical Sporting Goods Salesperson Documentation Provider requested thread spinner. Name of thread spinner: Debbie Jang RN ASSESSMENT/PLAN: Supervision of normal first , antepartum (Primary) - CULTURE, URINE, QUANTITATIVE; Future; Expected date: 03/07/2024 - TYPE AND SCREEN; Future; Expected date: 03/07/2024 - RUBELLA IGG ANTIBODY; Future; Expected date: 03/07/2024 - HEPATITIS B SURFACE ANTIGEN; Future; Expected date: 03/07/2024 - HIV ANTIGEN & ANTIBODY SCREEN W/ CONFIRMATION; Future; Expected date: 03/07/2024 - CHLAMYDIA TRACHOMATIS AND NEISSERIA GONORRHOEAE, AMPLIFIED PROBE; Future; Expected date: 03/07/2024 - ABO/RH; Future; Expected date: 03/07/2024 - CBC WITH WBC DIFFERENTIAL AND ANEMIA REFLEX WORKUP; Future; Expected date: 03/07/2024 - HEPATITIS C ANTIBODY SCREEN WITH PROGRESSION TO HEPATITIS C RNA QUANTITATIVE; Future; Expected date: 03/07/2024 - SYPHILIS ANTIBODY SCREEN WITH REFLEX TO RPR; Future; Expected date: 03/07/2024 - Plus 27-1 MG Oral Tablet; Take 1 Tablet by mouth in the morning. - INFLUENZA VAC, TRIVALENT, (IIV3), PF, 0.5 ML (FLUZONE) - [facility] PROGRAM REFERRAL OP - CULTURE, URINE, QUANTITATIVE - CHLAMYDIA TRACHOMATIS AND NEISSERIA GONORRHOEAE, AMPLIFIED PROBE Obesity in , antepartum Plan growth q4 weeks NST weekly at 37 weeks - PROTEIN/ CREATININE RATIO, URINE - COMPREHENSIVE METABOLIC PANEL - 50-G GESTATIONAL GLUCOSE, 1 HOUR; Future; Expected date: 03/07/2024 History of hypertension Not on medication. BP WNL today. Reviewed baseline labs, agreeable. Discussed s/sx of pre-eclampsia. Call right away if headache not relieved by tylenol/rest, chest pain, SOB, AZEB pain, vision changes, or epigastric pain. BP cuff sent for patient to monitor. Call if >/=140/90, needs hospital if >or equal to 160/110 - PROTEIN/ CREATININE RATIO, URINE - COMPREHENSIVE METABOLIC PANEL - Blood Pressure Cuff; For monitoring blood pressure Hypertensive left ventricular hypertrophy, without heart failure Last echo 08/10/2018. Marijuana use during Illicit. Recommended against use in and . We also discussed increased risk as it is illicit and not controlled. Depression complicating , antepartum Stable, prefers to manage on own. Denies SI/HI. Declines medication or counseling assistance. Provided mental health resources. Need for prophylactic vaccination and inoculation against influenza - INFLUENZA VAC, TRIVALENT, (IIV3), PF, 0.5 ML (FLUZONE) Other orders - URINALYSIS OBSTETRICS, POINT OF CARE - Discussed timing of routine OB care - recommended Covid vaccine due to increased risk of severe disease in . - Offered genetic screening and explained that screening does not provide a definitive diagnosis. Patient will notify office. - Recommended clean healthy diet and discussed foods/drinks to avoid in . Discussed recommend weight gain in . - Counseled on OTC measures to help alleviate nausea and advised to call if these are ineffective - Recommended daily vitamin. Patient desired prescription. - Given resources on local housing, and assistance. NVP initiated. - Discussed labs as ordered and instructed patient to present to lab following appointment. - MFM referral indicated. Discussed [place] location, pt agreeable. Has friends that can help withtransportation. - RTO in 4 weeks for KEVIN LONG with concern Kayley Hopson PA-C documented in this encounter Nursing Notes * Debbie Jang RN - 03/07/2024 3:58 PM EST Patient here for FLU injection. Patient doing well no complaints. Injection given IM as ordered. Patient tolerated well. Patient to follow up as directed. Patient instructed to call if any complications. Patient verbalized understanding of instructions given and her follow up appt for 1 month Injection site: Left Deltoid Medication Source: Dispensed stock medication Debbie Jang RN * Kim Luu LPN - 03/07/2024 2:38 PM EST NOB G1 _0 22w3d Reports prior bp issues in the distant past. Interested in qnatal- will look into coverage first. Offered NFP. documented in this encounter Plan of Treatment Upcoming Encounters Date Type Department Care Team (Late st Contact Info) Description 04/10/2024 3:15 PM EST [facility] [address] [address] Poornima Freeman CRNP [address] [address] 05/06/2024 9:40 AM EST [facility] [address] [phone] Carly Gatica MD [address] [facility] [place], [place] [address] 08/19/2024 6:00 PM EDT [facility] [address] [facility] [place], [place] [phone] Carly Gatica MD [address] [facility] [place], [place] [address] Pending Results Name Type Priority Associated Diagnoses Date /Time CULTURE, URINE, QUANTITATIVE Lab Routine Supervision of normal first , antepartum 03/07/2024 4:10 PM EST CHLAMYDIA TRACHOMATIS AND NEISSERIA GONORRHOEAE, AMPLIFIED PROBE Lab Routine Supervision of normal first , antepartum 03/07/2024 4:10 PM EST SYPHILIS ANTIBODY SCREEN WITH REFLEX TO RPR Lab Routine Supervision of normal first , antepartum 03/07/2024 4:15 PM EST Scheduled Orders Name Type Priority Associated Diagnoses Orde r Schedule CULTURE, URINE, QUANTITATIVE Lab Routine Supervision of normal first , antepartum Expected: 03/07/2024, Expires: 03/07/2025 CHLAMYDIA TRACHOMATIS AND NEISSERIA GONORRHOEAE, AMPLIFIED PROBE Lab Routine Supervision of normal first , antepartum Expected: 03/07/2024, Expires: 03/07/2025 SYPHILIS ANTIBODY SCREEN WITH REFLEX TO RPR Lab Routine Supervision of normal first , antepartum Expected: 03/07/2024, Expires: 03/07/2025 50-G GESTATIONAL GLUCOSE, 1 HOUR Lab Routine Obesity in , antepartum Expected: 03/07/2024, Expires: 03/07/2025 MFM US MATERNAL 1ST FETUS Medical Imaging Routine Supervision of normal first , antepartum Obesity in , antepartum History of hypertension Hypertensive left ventricular hypertrophy, without heart failure Marijuana use during Depression complicating , antepartum Need for prophylactic vaccination and inoculation against influenza Expected: 03/08/2024, Expires: 04/08/2025 Scheduled Referrals Name Type Priority Associated Diagnoses Orde r Schedule [facility] PROGRAM REFERRAL OP Referral Within 30 days (routine) Supervision of normal first , antepartum Ordered: 03/07/2024 MATERNAL MEDICINE REFERRAL OP Referral Within 10 days (routine) Supervision of normal first , antepartum Obesity in , antepartum History of hypertension Hypertensive left ventricular hypertrophy, without heart failure Marijuana use during Depression complicating , antepartum Need for prophylactic vaccination and inoculation against influenza Ordered: 03/08/2024 Health Maintenance Due Date Last Done Comments Depression Monitoring 07/16/2023 07/15/2022 COVID-19 Vaccine ( season) 2023 Gonorrhea / Chlamydia Screen 10/29/2024 10/30/2023, 12/21/2020, 09/14/2018 Yearly Wellness Visit 10/29/2024 10/30/2023 , 07/05/2021, 03/12/2020, Additional history exists GFR 03/07/2025 03/07/2024, 08/02, 04/15/2022, Additional history exists DTap/Tdap Vaccines (6 - [...] this encounter Medical Devices Implanted Type Area Letterpress Printing Machinist Device Identifier Shelf Expiration Date Model / Serial / Lot Btb Serafinrope - [id number] Implanted:Qty: 1 on 11/12/2019 by Christopher Brennan, DO at OR [facility] Right: Knee [employer] 01/01/2024 AR-1588BTB / / [id number] Tightrope Abs Implant, Open - [id number] Implanted:Qty: 1 on 11/12/2019 by Christopher Brennan DO at OR [facility] Right: Knee [employer] 01/01/2024 AR-1588TN-1 / / [id number] 7.5-10.5mm Graftlink Allograft, Frozen Graft Implanted:Qty: 1 on 11/12/2019 by Christopher Brennan DO at OR [facility] Right: Knee [employer] [id number] 09/01/2022 [employer] / [id number] 2 / LOT NA Tightrope Abs Button Rnd 11mm - [id number] Implanted:Qty: 1 on 11/12/2019 by Christopher Brennan DO at OR [facility] Right: Knee [employer] 08/31/2024 AR-1588TB-3 / / [id number] documented as of this encounter Procedures Procedure Name Priority Date/Time Associated Diagnosis Comments COMPREHENSIVE METABOLIC PANEL Routine 03/07/2024 4:15 PM EST Obesity in , antepartum History of hypertension PROTEIN/ CREATININE RATIO, URINE Routine 03/07/2024 4:10 PM EST Obesity in , antepartum History of hypertension URINALYSIS OBSTETRICS, POINT OF CARE ESTUARDO 03/07/2024 3:04 PM EST documented in this encounter Results * ABO/RH (03/07/2024 4:17 PM EST) ABO O 03/07/2024 11:55 PM EST LABORATORY [facility] BLOOD BANK Rh Positive 03/07/2024 11:55 PM EST LABORATORY [facility] BLOOD BANK Blood Venous blood specimen / Unknown Venipuncture / Unknown 03/07/2024 4:17 PM EST 03/07/2024 4:17 PM EST us Kayley Hopson PA-C LAB BLOOD BANK TEST ORDERABL ES Final Result LABORATORY [facility] BLOOD BANK [address] [address] * (ABNORMAL) COMPREHENSIVE METABOLIC PANEL (03/07/2024 4:15 PM EST) BUN 11 6 - 20 mg/dL 03/07/2024 5:05 PM EST LABORATORY [place] 57-10 CREATININE 0.6 0.5 - 1.0 mg/dL 03/07/2024 5:05 PM EST LAB[facility]ATORY [place] 57-10 EGFR >90 >=60 mL/min 03/07/2024 5:05 PM EST LAB[facility]ATORY [place] 57-10 Comment:eGFR is calculated b ased on the CKD-EPI 2020 equation. SODIUM 135 135 - 146 mmol/L 03/07/2024 5:05 PM EST LAB[facility]ORY [place] 57-10 POTASSIUM 4.3 3.5 - 5.1 mmol/L 03/07/2024 5:05 PM EST LAB[facility]ORY [place] 57-10 CHLORIDE 102 98 - 107 mmol/L 03/07/2024 5:05 PM EST LAB[facility]ORY [place] 57-10 CO2 23 22 - 32 mmol/L 03/07/2024 5:05 PM EST LAB[facility]ORY [place] 57-10 ANION GAP 10 7 - 15 mmol/L 03/07/2024 5:05 PM EST LAB[facility]ATORY [place] 57-10 GLUCOSE 81 70 - 120 mg/dL 03/07/2024 5:05 PM EST LAB[facility]ORY [place] 57-10 Albumin 3.7(L) 3.8 - 5.0 g/dL 03/07/2024 5:05 PM EST LAB[facility]ORY [place] 57-10 AST 19 10 - 35 U/L 03/07/2024 5:05 PM EST LAB[facility]ORY [place] 57-10 Alkaline Phosphatase 61 35 - 130 U/L 03/07/2024 5:05 PM EST LAB[facility]ORY [place] 57-10 Bilirubin, Total 0.4 <=1.2 mg/dL 03/07/2024 5:05 PM EST LAB[facility]ORY [place] 57-10 CALCIUM 9.7 8.4 - 10.2 mg/dL 03/07/2024 5:05 PM EST LAB[facility]ORY [place] 57-10 Protein 6.4 6.0 - 8.3 g/dL 03/07/2024 5:05 PM EST LAB[facility]ORY [place] 57-10 ALT 11 10 - 35 U/L 03/07/2024 5:05 PM EST [facility] [place] [facility] Blood Venous blood specimen / Unknown Venipuncture / Unknown 03/07/2024 4:15 PM EST 03/07/2024 4:15 PM EST Kayley Hopson PA-C LAB BLOOD ORDERABLES Final R esult Performing Organization Address City/[facility]/ZIP Co de Phone Number LABORATORY [facility] [place] [facility] [place] [address] * HIV ANTIGEN & ANTIBODY SCREEN W/ CONFIRMATION (03/07/2024 4:15 PM EST) HIV Antigen & Antibody Negative Negative 03/08/2024 12:59 AM EST LABORATORY [facility] Comment:Negative HIV-1/2 ant igen and antibody screening tset results usually indicate the absence of HIV-1 and HIV-2 infection. However, such negative results do not rule-out acute HIV infection. If acute HIV-1 infection is highly suspected, it is recommended that a specimen be submitted for detection of HIV-1 RNA. Blood Venous blood specimen / Unknown Venipuncture / Unknown 03/07/2024 4:15 PM EST 03/07/2024 4:15 PM EST Kayley Hopson PA-C LAB BLOOD ORDERABLES Final R esult LABORATORY [facility] [address] [place] [address] * HEPATITIS B SURFACE ANTIGEN (03/07/2024 4:15 PM EST) Hepatitis B Surface Antigen Negative Negative 03/08/2024 12:59 AM EST LABORATORY [facility] Blood Venous blood specimen / Unknown Venipuncture / Unknown 03/07/2024 4:15 PM EST 03/07/2024 4:15 PM EST Kayley Hopson PA-C LAB BLOOD ORDERABLES Final R esult LABORATORY [facility] [address] [place] [address] * (ABNORMAL) RUBELLA IGG ANTIBODY (03/07/2024 4:15 PM EST) Pathologist [facility] Rubella IgG Antibody Positive( A) Negative 03/08/2024 12:59 AM EST LABORATORY [facility] Comment:A positive result is consistent with having had rubella virus or vaccination. Blood Venous blood specimen / Unknown Venipuncture / Unknown 03/07/2024 4:15 PM EST 03/07/2024 4:15 PM EST us Kayley Hopson PA-C LAB BLOOD ORDERABLES Final R esult Performing Organization Address [facility] de Phone Number LABORATORY [address] [address] * PROTEIN/ CREATININE RATIO, URINE (03/07/2024 4:10 PM EST) Pathologist [facility] Protein/ Creatinine Ratio, Urine 64 <150 mg/g 03/08/2024 12:52 AM EST LABORATORY [facility] Protein, Random Urine 11 mg/dL 03/08/2024 12:52 AM EST LABORATORY [facility] Creatinine, Random Urine 172 mg/dL 03/08/2024 12:52 AM EST LABORATORY [facility] Urine Non-blood Collection / Unknown 03/07/2024 4:10 PM EST 03/07/2024 4:10 PM EST Narrative LABORATORY [facility] - 03/08/2024 12:52 AM EST Normal: <150 mg/g creatinine High: 150-500 mg/g creatinine Very High: >500 mg/g creatinine Nephrotic: >3000 mg/g creatinine us Kayley Hopson PA-C LAB URINE ORDERABLES Final R esult Performing Organization Address [facility] Co de Phone Number LABORATORY [facility] [address] [place] [address] * TYPE AND SCREEN (03/07/2024 4:10 PM EST) ABO O 03/07/2024 11:30 PM EST LABORATORY [facility] BLOOD BANK Rh Positive 03/07/2024 11:30 PM EST LABORATORY [facility] BLOOD BANK Red Blood Cell Antibody Screen Negative 03/07/2024 11:30 PM EST LABORATORY [facility] BLOOD BANK Specimen Expiration Date 03/10/2024 23:59 03/07/2024 11:30 PM EST LABORATORY [facility] BLOOD BANK Blood Venous blood specimen / Unknown Venipuncture / Unknown 03/07/2024 4:10 PM EST 03/07/2024 4:15 PM EST us Kayley Hopson PA-C LAB BLOOD BANK TEST ORDERABL ES Final Result LABORATORY [facility] BLOOD BANK [address] [facility] [place] [address] * (ABNORMAL) URINALYSIS OBSTETRICS, POINT OF CARE (03/07/2024 3:04 PM EST) Color, Urine Yellow Light Yellow, Yellow 03/07/2024 3:06 PM EST LAB[facility]ORY [place] [facility] Clarity, Urine Clear Clear 03/07/2024 3:06 PM EST [facility] Glucose, Urine Negative Negative mg/dL 03/07/2024 3:06 PM EST [facility] Bilirubin, Urine Negative Negative 03/07/2024 3:06 PM EST [facility] [place] [facility] Ketone, Urine Negative Negative mg/dL 03/07/2024 3:06 PM EST [facility] [place] [facility] Specific Sandwich, Urine 1.025 1.003 - 1.030 03/07/2024 3:06 PM EST [facility] Blood, Urine Negative Negative 03/07/2024 3:06 PM EST [facility] [place] [facility] pH, Urine 6.5 5.0, 5.5, 6.0, 6.5, 7.0, 7.5 units 03/07/2024 3:06 PM EST [facility] Protein, Urine Negative Negative mg/dL 03/07/2024 3:06 PM EST [facility] [place] [facility] Urobilinogen, Urine 0.2 0.2, 1.0 mg/dL 03/07/2024 3:06 PM EST [facility] [place] [facility] Nitrite, Urine Negative Negative 03/07/2024 3:06 PM EST [facility] [place] [facility] Esterase, Urine Trace(A) Negative 03/07/2024 3:06 PM EST [facility] [place] [facility] Urine 03/07/2024 3:04 PM EST 03/07/2024 3:06 PM EST us Kayley Hopson PA-C LAB POINT OF CARE TE ST DOCKED DEVICE UNSOLICITED RESULTS Final Result [facility] [address] [place] [address] documented in this encounter Visit Diagnoses Diagnosis Supervision of normal first , antepartum- Primary Obesity in , antepartum Obesity complicating , childbirth, or the puerperium, antepartum condition or complication History of hypertension Personal history of other diseases of circulatory system Hypertensive left ventricular hypertrophy, without heart failure Marijuana use during Depression complicating , antepartum Mental disorders of mother, antepartum Need for prophylactic vaccination and inoculation against influenza documented in this encounter Care Teams Video Library Assistant Relationship Specialty Start Date End Date Carly Gatica MD [address] [place] [address] PCP - General Family Medicine 11/23/20 documented as of this encounter
--- OUTSIDE RECORDS SUMMARY | 2024-07-03 12:36 | External Medical Summary | Summary of Care ---
Author Name Unknown Organization [facility] Address [address] [place] [address] Phone [phone] Care Team Providers Care Radiochemical Technician Name Role Phone Carly Gatica MD Primary Care Provid er Encounter Details Date Type Department Care Team ([facility] Contact Info) Description 02/21/2024 Telephone Gynecology/Obstetrics [facility] [address] [facility] [place] [address] BackerFaith CRNP [address] [facility] [address] Allergies No known active allergiesdocumented as of this encounter (statuses as of 02/22/2024) Medications Blood Pressure Monitoring (MICROLIFE BPM2 BP MONITOR) KIT Monitor BP as directed 1 Kit 11/13/2019 Active Cetirizine HCl 10 MG Oral Tablet (ZyrTEC) Take by mouth 1 Tablet daily as needed for Other (allergies). 90 Tablet 1 07/09/2021 Active Proventil HFA 108 (90 Base) MCG/ACT Inhalation Aerosol SolutionIndicat ions:Acute non-recurrent maxillary sinusitis Inhale 2 Puffs by mouth every 4 hours as needed for Wheezing. 18 g 3 08/15/2023 Active documented as of this encounter (statuses as of 02/22/2024) Active Problems Problem Noted Date Diagnosed Date Suicidal thoughts 04/15/2022 Moderate episode of recurrent major depressive d isorder 07/05/2021 IRAJ (generalized anxiety disorder) 07/05/2021 Hypertension goal BP (blood pressure) < 140/90 0 11/23/2020 Hypertensive left ventricula r hypertrophy, without heart failure 11/23/2020 BMI 45.0-49.9, adult 09/15/2020 Overview: Per Obesity protocol Morbid obesity due to excess calories 08/07/2006 Overview (06/25/2009): Per Obesity Taxonomy Comments Yes documented as of this encounter (statuses as of 02/22/2024) Resolved Problems Problem Noted Date Diagnosed Date [...] as of this encounter (statuses as of 02/22/2024) Immunizations Name Administration Dates Next Due DTaP [...] 04/15/2022,03/12/2020 Seasonal Influenza, Quad, Nasal (Flumist) 2015 TDAP (age 10 and older)(Boostrix) 04/23/2015 documented [...] have money to get more. Sometimes true Childcare Answer Date Recorded Do you feel [...] ages 0-17 years) Not on file 02/20/2024 Comments Yes Sex and Gender Information Value Date Recorded [...] encounter Miscellaneous Notes * Telephone Encounter - Abby Rabago OSA - 02/22/2024 10:07 AM EST Patient already scheduled. Just needed appointment linked. * Telephone Encounter - Kim Luu LPN - 02/22/2024 9:51 AM EST Please schedule for anatomy. * Telephone Encounter - Faith Flood CRNP - 02/22/2024 8:05 AM EST KENNETH Mandel * Telephone Encounter - Paige Bender LPN - 02/21/2024 8:20 AM EST Patient was 17wks and 1 day on 02/02. She was scheduled for a dating scan but has already had one. Patient was going to reschedule for her anatomy. Is seeing Faith for her Nob visit on 03/05. If ok please placed anatomy US order. documented in this encounter Plan of Treatment Upcoming Encounters Date Type Department Care Team (Late st Contact Info) Description 02/28/2024 2:00 PM EST Imaging Radiology [facility] 2nd [facility] [address] [place] [address] 03/05/2024 9:30 AM EST Office Visit Gynecology/Obstetrics [facility] [address] [facility] [place] [address] Faith Flood CRNP [address] [place] [address] 05/06/2024 9:40 AM EST Office [facility] [address] [facility] [phone] Carly Gatica MD [address] [place] [address] 08/19/2024 6:00 PM EDT [facility] [address] [facility] [phone] Carly Gatica MD [address] [place] [facility] [place] [address] Scheduled Orders Name Type Priority Associated Diagnoses Orde r Schedule US PREG SINGLE/1ST GEST, 14 WEEKS OR LATER Medical Imaging Routine state, incidental Expected: 03/14/2024 (Approximate), Expires: 03/23/2025 Health Maintenance Due Date Last Done Comments Depression Monitoring 07/16/2023 07/15/2022 COVID-19 Vaccine ( season) 2023 Influenza Vaccine (FLU shot) (#1) 2023 04/15/2022, 03/12/2020, 03/12/2020, Additional history exists GFR 08/22/2024 08/23/2023, 04/03, 12/21/2020, Additional history [...] 04/23/2015 Albumin/Creatinine Ratio Discontinued 024, 04/15/2022, 07/05/2021 Pneumococcal Vaccine: Pediatrics (0 to 5 Years) and At-Risk Patients (6 to 64 Years) Aged Out No longer eligible based on patient's age to complete this topic documented as of this encounter Medical Devices Implanted Type Area Handkerchief Sample Clerk Device Identifier Shelf Expiration Date Model / Serial / Lot Btb Tightrope - [id number] Implanted:Qty: 1 on 11/12/2019 by Christopher Brennan DO at OR [facility] Right: Knee [employer] 01/01/2024 AR-1588BTB / / [id number] Tightrope Abs Implant, Open - [id number] Implanted:Qty: 1 on 11/12/2019 by Christopher Brennan DO at OR [facility] Right: Knee [employer] 01/01/2024 AR-1588TN-1 / / [id number] 7.5-10.5mm Graftlink Allograft, Frozen Graft Implanted:Qty: 1 on 11/12/2019 by Christopher Brennan DO at OR [facility] Right: Knee [employer] [id number] 09/01/2022 [facility] / [id number] 2 / LOT NA Tightrope Abs Button Rnd 11mm - [id number] Implanted:Qty: 1 on 11/12/2019 by Christopher Brennan DO at OR [facility] Right: Knee [employer] 08/31/2024 AR-1588TB-3 / / [id number] documented as of this encounter Visit Diagnoses Diagnosis state, incidental- Primary documented in this encounter Care Teams Radiochemical Technician Relationship Specialty Start Date End Date Carly Gatica MD [address] [place] [address] PCP - General Family Medicine 11/23/20 documented as of this encounter
--- OUTSIDE RECORDS SUMMARY | 2024-07-03 12:36 | External Medical Summary | Summary of Care ---
Author Name Unknown Organization [facility] Address [address] [place] [address] Phone [phone] Care Team Providers Care Assistant Librarian Name Role Phone Carly Gatica MD Primary Care Provid er Encounter Details Date Type Department Care Team ([facility] Contact Info) Description 02/19/2024 Telephone Gynecology/Obstetrics, [address] [address] Joey Henley MD [address] [place] [address] Allergies No known active allergiesdocumented as of this encounter (statuses as of 02/19/2024) Medications Blood Pressure Monitoring (MICROLIFE BPM2 BP MONITOR) KIT Monitor BP as directed 1 Kit 11/13/2019 Active Cetirizine HCl 10 MG Oral Tablet (ZyrTEC) Take by mouth 1 Tablet daily as needed for Other (allergies). 90 Tablet 1 07/09/2021 Active NuvaRing 0.12-0.015 MG/24HR Vaginal Ring Insert ring for 3 weeks, then remove for 1 week. 3 Each 3 08/15/2023 Active Proventil HFA 108 (90 Base) MCG/ACT Inhalation Aerosol SolutionIndicat ions:Acute non-recurrent maxillary sinusitis Inhale 2 Puffs by mouth every 4 hours as needed for Wheezing. 18 g 3 08/15/2023 Active FLUoxetine HCl 10 MG Oral Capsule (PROzac)Indicat ions:Moderate episode of recurrent major depressive disorder (HCC),IRAJ (generalized anxiety disorder) Take 1 Capsule by mouth in the morning. 30 Capsule 6 11/24/2023 Active documented as of this encounter (statuses as of 02/19/2024) Active Problems Problem Noted Date Diagnosed Date Suicidal thoughts 04/15/2022 Moderate episode of recurrent major depressive d isorder 07/05/2021 IRAJ (generalized anxiety disorder) 07/05/2021 Hypertension goal BP (blood pressure) < 140/90 0 11/23/2020 Hypertensive left ventricula r hypertrophy, without heart failure 11/23/2020 BMI 45.0-49.9, adult 09/15/2020 Overview: Per Obesity protocol Morbid obesity due to excess calories 08/07/2006 Overview (06/25/2009): Per Obesity Taxonomy documented as of this encounter (statuses as of 02/19/2024) Resolved Problems Problem Noted Date Diagnosed Date [...] as of this encounter (statuses as of 02/19/2024) Immunizations Name Administration Dates Next Due DTaP [...] you got the money to buy more. Never true 07/16/19 23 Within the past 12 months, t he food you bought just didn't last and you didn't have money to get more. 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 * Telephone Encounter - Lelo Patel RN - 02/19/2024 8:09 AM EST T/C from pt requesting to complete phone intake. 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 Pt states she works at 10 am today. Please call pt to assist pt with rescheduling intake. Cody's pt. documented in this encounter Plan of Treatment Upcoming Encounters Date Type Department Care Team (Late st Contact Info) Description 02/21/2024 10:50 AM EST Laboratory Laboratory [facility] [address] [place] [phone] [facility] [address] [place] [address] 03/05/2024 8:45 AM EST Imaging Radiology [facility] [address] [facility] [place] [address] 03/05/2024 9:30 AM EST Office Visit Gynecology/Obstetrics [facility] [address] [place] [address] BackerFaith CRNP [address] [place] [address] 05/06/2024 9:40 AM EST [facility] [address] [place] [address] Carly Gatica MD [address] [facility] [address] 08/19/2024 6:00 PM EDT [facility] [address] [facility] [place] [address] Carly Gatica MD [address] [place] [address] Health Maintenance Due Date Last Done Comments Depression Monitoring 07/16/2023 07/15/2022 COVID-19 Vaccine ( season) 2023 Influenza Vaccine (FLU shot) (#1) 2023 04/15/2022, 03/12/2020, 03/12/2020, Additional history exists GFR 08/22/2024 08/23/2023, 04/03, 12/21/2020, Additional history exists Gonorrhea / Chlamydia Screen 10/29/2024, 12/21/2020, 09/14/2018 Yearly Wellness Visit 10/29/2024 10/30/2023 , 07/05/2021, 03/12/2020, Additional history exists DTap/Tdap Vaccines (6 - Td or Tdap) 04/23/2025 04/23/2015, 07/07/2008, 12/18/2003, Additional history exists Albumin/Creatinine Ratio 08/22/2026 024, 04/15/2022, 07/05/2021 Pap Smear 10/29/2026 10/30/2023 Hepatitis B Vaccine Completed 03/06/2003, 2002, 2002 HPV (Gardasil) Vaccine Completed 11/30/2015, 2015 MENINGOCOCCAL (MENACTRA/MENVEO) Completed 03/12/2020, 03/12/2020, 04/23/2015 Pneumococcal Vaccine: Pediatrics (0 to 5 Years) and At-Risk Patients (6 to 64 Years) Aged Out No longer eligible based on patient's age to complete this topic documented as of this encounter Medical Devices Implanted Type Area Auto Glass Worker Device Identifier Shelf Expiration Date Model / Serial / Lot Btb Tightrope - [id number] Implanted:Qty: 1 on 11/12/2019 by Christopher Brennan DO at OR [facility] Right: Knee [employer] 01/01/2024 AR-1588BTB / / [id number] Tightrope Abs Implant, Open - [id number] Implanted:Qty: 1 on 11/12/2019 by Christopher Brennan DO at OR [facility] Right: Knee [employer] 01/01/2024 AR-1588TN-1 / / [id number] 7.5-10.5mm Graftlink Allograft, Frozen Graft Implanted:Qty: 1 on 11/12/2019 by Christopher Brennan DO at OR [facility] Right: Knee [employer] [id number] 09/01/2022 [facility] / [id number] 2 / LOT NA Tightrope Abs Button Rnd 11mm - [id number] Implanted:Qty: 1 on 11/12/2019 by Christopher Brennan DO at OR [facility] Right: Knee [employer] 08/31/2024 MARIBELL-1588TB-3 / / [id number] documented as of this encounter Care Teams Assistant Librarian Relationship Specialty Start Date End Date Carly Gatica MD [address] [place] [address] PCP - General Family Medicine 11/23/20 documented as of this encounter
--- OUTSIDE RECORDS SUMMARY | 2024-07-03 12:36 | External Medical Summary ---
Author Name Unknown Address Unknown Organization [id number]:[facility] [place] [address] [place] [address] Laboratory Report Ordering Provider Test Date Status DMITRY LAZARO 03/07/2024 16:10:12 Final Observation Date Value Abnormality Reference (Units) Status Bacteria identified in Specimen by Culture 03/07/2024 16:10:12 No significant growth Final Test: Culture, Urine, Quanti tative
Specimen Source: Urine, Clean Catch
Specimen Type: Urine
Specimen Date: 03/07/2024 1610
Result Date: 03/09/2024 0815
Result Status: Final result
Resulting Lab: [facility] [place]
[address]
[facility] [address]

CULTURE

No significant growth

null Performing Location [facility] [place] [address] [facility] [address]
--- OUTSIDE RECORDS SUMMARY | 2024-07-03 12:36 | External Medical Summary ---
Author Name Unknown Address Unknown Organization [id number]:[facility] [place] [facility] [address] [place] [address] Laboratory Report Ordering Provider Test Date Status DMITRY LAZARO 03/07/2024 16:10:12 Final Observation Date Value Abnormality Reference (Units ) Status Chlamydia trachomatis rRNA [Presence] in Specimen by CATHY with probe detection 03/07/2024 16:10:12 Negative Negative Final No Chlamydia trachomatis det ected by car inspector-mediated nucleic acid amplification. Neisseria gonorrhoeae rRNA [ Presence] in Specimen by CATHY with probe detection 03/07/2024 16:10:12 Negative Negative Final No Neisseria gonorrhoeae det ected by car inspector-mediated nucleic acid amplification. Performing Location [facility] [place] [address] [place] [address]
--- OUTSIDE RECORDS SUMMARY | 2024-07-03 12:36 | External Medical Summary ---
Author Name Unknown Address Unknown Organization [id number]:[facility] - [address] [place] [address] Laboratory Report Ordering Provider Test Date Status DMITRY LAZARO 03/07/2024 16:15:24 Final Observation Date Value Abnormality Reference (Units ) Status SYNC LEUKOCYTES IN BLOOD BY AUTOMATED COUNT 03/07/2024 16:15:24 11.55 Above high normal 4.00-10.80 (K/uL) Final Segs 03/07/2024 16:15:24 62.2 40.0-75.0 (%) Final Lymphs % 03/07/2024 16:15:24 26.5 18.0-42.0 (%) Final Monos 03/07/2024 16:15:24 9.6 1.0-11.0 (%) Final Eosinophils 03/07/2024 16:15:24 1.3 0.0-6.0 (%) Final Basos 03/07/2024 16:15:24 0.4 0.0-2.0 (%) Final Absolute Segs 03/07/2024 16:15:24 7.18 1.80-7.70 (K/uL) Final Lymphs, absolute 03/07/2024 16:15:24 3.06 1.00-4.80 (K/ul) Final Monos, Abs 03/07/2024 16:15:24 1.11 Above high normal 0.00-1.10 (K/uL) Final Eos, Abs 03/07/2024 16:15:24 0.15 0.00-0.70 (K/uL) Final Basos, Abs 03/07/2024 16:15:24 0.05 0.00-0.20 (K/uL) Final Performing Location [facility] 0 - [address] [place] [address]
--- OUTSIDE RECORDS SUMMARY | 2024-07-03 12:36 | External Medical Summary | Summary of Care ---
Author Name Unknown Organization [facility] Address [address] [place] [address] Phone [phone] Care Team Providers Care Integrated Pest Management Technician Name Role Phone Carly Gatica MD Primary Care Provid er Reason for Visit * Reason Comments Nurse Documentation Encounter Details Date Type Department Care Team ([facility] Contact Info) Description 02/20/2024 11:00 AM EST Nurse Only Gynecology/Ob[facility] [address] [facility] [place] [address] G[address], Nurse Preparation Department Supervisor [facility] [address] [facility] [place] [address] Nurse Documentation Allergies No known active allergiesdocumented as of this encounter (statuses as of 02/20/2024) Medications Blood Pressure Monitoring (MICROLIFE BPM2 BP MONITOR) KIT Monitor BP as directed 1 Kit 0 Active Cetirizine HCl 10 MG Oral Tablet (ZyrTEC) Take by mouth 1 Tablet daily as needed for Other (allergies). 90 Tablet 1 2 Active Proventil HFA 108 (90 Base) MCG/ACT Inhalation Aerosol SolutionIndicat ions:Acute non-recurrent maxillary sinusitis Inhale 2 Puffs by mouth every 4 hours as needed for Wheezing. 18 g 3 4 Active NuvaRing 0.12-0.015 MG/24HR Vaginal Ring Insert ring for 3 weeks, then remove for 1 week. 3 Each 3 4 02/20/20 24 Discontinu ed(Medicat ion List Clean Up) FLUoxetine HCl 10 MG Oral Capsule (PROzac)Indicat ions:Moderate episode of recurrent major depressive disorder (HCC),IRAJ (generalized anxiety disorder) Take 1 Capsule by mouth in the morning. 30 Capsule 6 4 02/20/20 24 Discontinu ed(Medicat ion List Clean Up) documented as of this encounter (statuses as of 02/20/2024) Active Problems Problem Noted Date Diagnosed Date [...] as of this encounter (statuses as of 02/20/2024) Resolved Problems Problem Noted Date Diagnosed Date [...] as of this encounter (statuses as of 02/20/2024) Immunizations Name Administration Dates Next Due DTaP [...] as of this encounter Progress Notes * Fanny Castillo, MARIO - 02/20/2024 10:58 AM EST Spoke with pt for Nob. Pts lmp was 10/02/23 and I asked pt if she was on any BC she said she was and then she wasn't. (I'm not sure what that means) pt said she lives in a group home currently and she is in a relationship with FOB but unsure where he works and FOB does not believe child is his. Pt was asking about DNA testing I let pt know she would need to discuss this with peds and most likely have testing after baby is born. Pt has gone to [facility] for N,V and un aware of . Pt found out about on 01/27 at ER. US was not performed. Pt said she also went to ER in [place] due to vb.Pt said she currently is no longer having vb. I asked pt If she could come in this week for US pt said she can come tomorrow. Appt made for dating. documented in this encounter Plan of Treatment Upcoming Encounters Date Type Department Care Team (Late st Contact Info) Description 02/21/2024 8:15 AM EST Imaging Radiology [facility] 2nd [facility] [address] [place] [address] 02/21/2024 10:50 AM EST Laboratory Laboratory [facility] [address] [place] [phone] [place] Lab [address] [place] [address] 03/05/2024 9:30 AM EST Office Visit Gynecology/Obst[facility] [address] [place] [address] Faith Flood CRNP [address] [facility] [address] 05/06/2024 9:40 AM EST [facility] [place] [address] [place] [address] Carly Gatica MD [address] [place] [address] 08/19/2024 6:00 PM EDT [facility] [address] [facility] [place] [address] Carly Gatica MD [address] [place] [facility] [place] [address] Health Maintenance Due Date Last Done Comments [...] this encounter Medical Devices Implanted Type Area Boiler House Operator Device Identifier Shelf Expiration Date Model / Serial / Lot Btb Tightrope - [id number] Implanted:Qty: 1 on 11/12/2019 by Christopher Brennan DO at OR [facility] Right: Knee [employer] 01/01/2024 AR-1588BTB / / [id number] Tightrope Abs Implant, Open - [id number] Implanted:Qty: 1 on 11/12/2019 by Christopher Brennan DO at OR [facility] Right: Knee [employer] 01/01/2024 AR-1588TN-1 / / [id number] 7.5-10.5mm Graftlink Allograft, Frozen Graft Implanted:Qty: 1 on 11/12/2019 by Christopher Brennan DO at OR [facility] Right: Knee [employer] [id number] 09/01/2022 [facility] / [id number] 2 / LOT NA Tightrope Abs Button Rnd 11mm - [id number] Implanted:Qty: 1 on 11/12/2019 by Christopher Brennan DO at OR [facility] Right: Knee [employer] 08/31/2024 AR-1588TB-3 / / [id number] documented as of this encounter Visit Diagnoses Diagnosis - Primary state, incidental documented in this encounter Care Teams Integrated Pest Management Technician Relationship Specialty Start Date End Date Carly Gatica MD [address] [place] [address] PCP - General Family Medicine 11/23/20 documented as of this encounter
--- OUTSIDE RECORDS SUMMARY | 2024-07-03 12:36 | External Medical Summary ---
Author Name Unknown Address Unknown Organization [id number]:[facility] [place] [address] [facility] [address] Laboratory Report Ordering Provider Test Date Status DMITRY LAZARO 03/07/2024 16:15:24 Final Observation Date Value Abnormality Reference (Units ) Status Hep B surface Ag 03/07/2024 16:15:24 Negative Neg ative Final Performing Location LABORATORY [facility] - [address] [facility] [address]
--- OUTSIDE RECORDS SUMMARY | 2024-07-03 12:36 | External Medical Summary ---
Author Name Unknown Address Unknown Organization [id number]:[facility] [place] [address] [place] [address] Laboratory Report Ordering Provider Test Date Status DMITRY LAZARO 03/07/2024 16:15:24 Final Observation Date Value Abnormality Reference (Units ) Status Treponema pallidum Ab [Presence] in Serum by Immunoassay 03/07/2024 16:15:24 Nonreactive Nonreactive Final No serologic evidence of syp hilis. No additional testing clinicially indicated at this time. Consider repeat testing in 2-4 weeks if acute or primary syphilis is suspected. Performing Location [facility] [place] - [address] [place] [address]
--- OUTSIDE RECORDS SUMMARY | 2024-07-03 12:36 | External Medical Summary ---
Author Name Unknown Address Unknown Organization K01:[facility] [place] [facility] [place] [address] [place] [address] Laboratory Report Ordering Provider Test Date Status DMITRY LAZARO 03/07/2024 16:10:00 Final Observation Date Value Abnormality Reference (Units ) Status ABO 03/07/2024 16:10:00 O Final RH 03/07/2024 16:10:00 Positive Final RED BLOOD CELL ANTIBODY SCREEN 03/07/2024 16:10:00 Negative Final SPECIMEN EXPIRATION DATE 03/07/2024 16:10:00 03/10/2024 23:59 Final Performing Location [facility] [place] [facility] - [address] [place] [address]
--- OUTSIDE RECORDS SUMMARY | 2024-07-03 12:36 | External Medical Summary ---
Author Name Unknown Address Unknown Organization [id number]:LABORATORY [facility] [place] - [address] [place] [address] Laboratory Report Ordering Provider Test Date Status DMITRY LAZARO 03/07/2024 16:15:24 Final Observation Date Value Abnormality Reference (Units ) Status Iron 03/07/2024 16:15:24 58 33-151 (ug/dL) Final Iron-binding capacity 03/07/2024 16:15:24 436 Above high normal 250-425 (ug/dL) Final Transferrin Sat % 03/07/2024 16:15:24 13 Below low normal 15-55 (%) Final Performing Location LABORATORY [facility] [place] - [address] [place] [address]
--- OUTSIDE RECORDS SUMMARY | 2024-07-03 12:36 | External Medical Summary ---
Author Name Unknown Address Unknown Organization [id number]:LABORATORY C - [address] [place] [address] Laboratory Report Ordering Provider Test Date Status DMITRY LAZARO 03/07/2024 16:15:24 Final Observation Date Value Abnormality Reference (Units ) Status Hep C Ab 03/07/2024 16:15:24 Negative Negative Final Further HCV quantitative ariana ting not performed per protocol. Performing Location LABORATORY [facility] - [address] [place] [address]
--- OUTSIDE RECORDS SUMMARY | 2024-07-03 12:36 | External Medical Summary ---
Author Name Unknown Address Unknown Organization [id number]:LABORATORY [facility] [place] - [address] [place] [address] Laboratory Report Ordering Provider Test Date Status DMITRY LAZARO 03/07/2024 16:10:12 Final Normal: � � � <150 mg/ g creatinine
High: � � � � � 150-500 mg/g creatinine
Very High: � >500 mg/g creatinine
Nephrotic: � >3000 mg/g creatinine Observation Date Value Abnormality Reference (Units ) Status Protein/Creatinine [Ratio] in Urine 03/07/2024 16:10:12 64 <150 (mg/g ) Final Protein, Urine 03/07/2024 16:10:12 11 (mg/dL) Final Creatinine, Urine 03/07/2024 16:10:12 172 (mg/dL) Final Performing Location LABORATORY [facility] [place] - [address] [place] [address]
--- OUTSIDE RECORDS SUMMARY | 2024-07-03 12:36 | External Medical Summary ---
Author Name Unknown Address Unknown Organization [id number]:[place]ORY [facility] [place] [address] [place] [address] Laboratory Report Ordering Provider Test Date Status DMITRY LAZARO 03/07/2024 16:15:24 Final Observation Date Value Abnormality Reference (Units ) Status Ferritin 03/07/2024 16:15:24 53 13-150 (ng /mL) Final Performing Location [place] [facility] [place] [address] [place] [address]
--- OUTSIDE RECORDS SUMMARY | 2024-07-03 12:36 | External Medical Summary ---
Author Name Unknown Address Unknown Organization K0G:LABORATORY [facility] - [address] [place] [address] Laboratory Report Ordering Provider Test Date Status DMITRY LAZARO 03/07/2024 15:04:00 Final Observation Date Value Abnormality Reference (Units ) Status Color of Urine by Auto 03/07/2024 15:04:00 Yellow Light Yellow, Yellow Final Clarity, Urine 03/07/2024 15:04:00 Clear Clear Final Glucose [Mass/volume] in Urine by Automated test strip 03/07/2024 15:04:00 Negative Negative (mg/dL) Final Bilirubin.total [Presence] in Urine by Automated test strip 03/07/2024 15:04:00 Negative Negative Final Ketones [Mass/volume] in Urine by Automated test strip 03/07/2024 15:04:00 Negative Negative (mg/dL) Final Specific gravity, Urine 03/07/2024 15:04:00 1.025 1.003-1.030 Final Hemoglobin [Presence] in Urine by Automated test strip 03/07/2024 15:04:00 Negative Negative Final pH, Urine 03/07/2024 15:04:00 6.5 5.0, 5.5, 6.0, 6.5, 7.0, 7.5 (units) Final Protein [Mass/volume] in Urine by Automated test strip 03/07/2024 15:04:00 Negative Negative (mg/dL) Final Urobilinogen, Urine 03/07/2024 15:04:00 0.2 0.2, 1.0 (mg/dL) Final Nitrite [Presence] in Urine by Automated test strip 03/07/2024 15:04:00 Negative Negative Final Leukocyte esterase [Presence] in Urine by Automated test strip 03/07/2024 15:04:00 Trace Abnormal Negative Final Performing Location LABORATORY [facility] 0 - [address] [place] [address]
--- OUTSIDE RECORDS SUMMARY | 2024-07-03 12:36 | External Medical Summary ---
Author Name Unknown Address Unknown Organization K0G:LABORATORY [place] [facility] - [address] [place] [address] Laboratory Report Ordering Provider Test Date Status DMITRY LAZARO 03/07/2024 16:15:24 Final Observation Date Value Abnormality Reference (Units ) Status BUN 03/07/2024 16:15:24 11 6-20 (mg/dL) Final Creatinine 03/07/2024 16:15:24 0.6 0.5-1.0 (mg/dL) Final Glomerular filtration rate/1.73 sq M.predicted [Volume Rate/Area] in Serum, Plasma or Blood by Creatinine-based formula (CKD-EPI) 03/07/2024 16:15:24 >90 >=60 (mL/min) Final eGFR is calculated based on the CKD-EPI 2020 equation. Sodium 03/07/2024 16:15:24 135 135-146 (m mol/L) Final Potassium 03/07/2024 16:15:24 4.3 3.5-5.1 (m mol/L) Final Cl 03/07/2024 16:15:24 102 98-107 (mm ol/L) Final CO2 03/07/2024 16:15:24 23 22-32 (mmo l/L) Final Anion gap 03/07/2024 16:15:24 10 7-15 (mmol /L) Final Glucose 03/07/2024 16:15:24 81 70-120 (mg /dL) Final Albumin 03/07/2024 16:15:24 3.7 Below low normal 3.8 -5.0 (g/dL) Final AST (Aspartate aminotransferase) 03/07/2024 16:15:24 19 10-35 (U/L) Fin al Alk Phos 03/07/2024 16:15:24 61 35-130 (U/ L) Final Bilirubin, Total 03/07/2024 16:15:24 0.4 <=1 .2 (mg/dL) Final Calcium 03/07/2024 16:15:24 9.7 8.4-10.2 ( mg/dL) Final Protein 03/07/2024 16:15:24 6.4 6.0-8.3 (g /dL) Final ALT (Alanine aminotransferase) 03/07/2024 16:15:24 11 10-35 (U/L) Ricky kirk Performing Location LABORATORY [place] [address] - [address] [facility] [place] [address]
--- OUTSIDE RECORDS SUMMARY | 2024-07-03 12:36 | External Medical Summary | Summary of Care ---
Author Name Unknown Organization [facility] Address [address] [place] [address] Phone [phone] Care Team Providers Care Chief Librarian Work With Blind Name Role Phone Carly Gatica MD Primary Care Provid er Encounter Details Date Type Department Care Team ([facility] Contact Info) Description 02/19/2024 Telephone Gynecology/Obstetrics, [address] [address] Joey Henley MD [address] [place] [address] Allergies No known active allergiesdocumented as of [...] Description 02/21/2024 10:50 AM EST Laboratory Laboratory [facility] [address] [place] [id number] [facility] [address] [place] [address] 03/05/2024 8:45 AM EST Imaging Radiology [facility] [address] [facility] [place] [address] 03/05/2024 9:30 AM EST Office Visit Gynecology/Obstetrics [facility] [address] [place] [address] BackerFaith CRNP [address] [place] [address] 05/06/2024 9:40 AM EST Office Visit [facility] [address] [address] Carly Gatica MD [address] [facility] [address] 08/19/2024 6:00 PM EDT Office Visit [facility] [address] [facility] [place] [address] Carly Gatica MD [address] [place] [address] Health Maintenance Due Date Last Done Comments [...] this encounter Medical Devices Implanted Type Area Film Librarian Device Identifier Shelf Expiration Date Model / Serial / Lot Btb Tightrope - [id number] Implanted:Qty: 1 on 11/12/2019 by Christopher Brennan DO at OR [facility] Right: Knee [employer] 01/01/2024 AR-1588BTB / / [id number] Tightrope Abs Implant, Open - [id number] Implanted:Qty: 1 on 11/12/2019 by Christopher Brennan DO at OR [facility] Right: Knee [employer] 01/01/2024 AR-1588TN-1 / / [id number] 7.5-10.5mm Graftlink Allograft, Frozen Graft Implanted:Qty: 1 on 11/12/2019 by Christopher Brennan DO at OR [facility] Right: Knee [employer] [id number] 09/01/2022 [facility] / [id number] 2 / LOT NA Tightrope Abs Button Rnd 11mm - [id number] Implanted:Qty: 1 on 11/12/2019 by Christopher Brennan DO at OR [facility] Right: Knee [employer] 08/31/2024 MARIBELL-1588TB-3 / / [id number] documented as of this encounter Care Teams Chief Librarian Work With Blind Relationship Specialty Start Date End Date Carly Gatica MD [address] [place] [address] PCP - General Family Medicine 11/23/20 documented as of this encounter
--- OUTSIDE RECORDS SUMMARY | 2024-07-03 12:36 | External Medical Summary | Summary of Care ---
Author Name Unknown Organization [facility] Address [address] [place] [address] Phone [phone] Care Team Providers Care Percher Name Role Phone Carly Gatica MD Primary Care Provid er Encounter Details Date Type Department Care Team ([facility] Contact Info) Description 02/19/2024 Telephone Gynecology/Obstetrics, [address] [address] Joey Henley MD [address] [place] [address] Allergies No known active allergiesdocumented as of [...] Description 02/21/2024 10:50 AM EST Laboratory Laboratory [facility] [address] [place] [phone] [facility] [address] [place] [address] 03/05/2024 8:45 AM EST Imaging Radiology [facility] [address] [facility] [place] [address] 03/05/2024 9:30 AM EST Office Visit Gynecology/Obstetrics [facility] [address] [place] [address] BackerFaith CRNP [address] [place] [address] 05/06/2024 9:40 AM EST Office Visit [facility] [address] [address] Carly Gatica MD [address] [facility] [address] 08/19/2024 6:00 PM EDT Office Visit [facility] [address] [facility] [place] [address] Carly Gatica MD [address] [place] [address] Health Maintenance Due Date Last Done Comments [...] this encounter Medical Devices Implanted Type Area Ball Winder Device Identifier Shelf Expiration Date Model / Serial / Lot Btb Tightrope - [id number] Implanted:Qty: 1 on 11/12/2019 by Christopher Brennan DO at OR [facility] Right: Knee [employer] 01/01/2024 AR-1588BTB / / [id number] Tightrope Abs Implant, Open - [id number] Implanted:Qty: 1 on 11/12/2019 by Christopher Brennan DO at OR [facility] Right: Knee [employer] 01/01/2024 AR-1588TN-1 / / [id number] 7.5-10.5mm Graftlink Allograft, Frozen Graft Implanted:Qty: 1 on 11/12/2019 by Christopher Brennan DO at OR [facility] Right: Knee [employer] [id number] 09/01/2022 [facility] / [id number] 2 / LOT NA Tightrope Abs Button Rnd 11mm - [id number] Implanted:Qty: 1 on 11/12/2019 by Christopher Brennan DO at OR [facility] Right: Knee [employer] 08/31/2024 MARIBELL-1588TB-3 / / [id number] documented as of this encounter Care Teams Percher Relationship Specialty Start Date End Date Carly Gatica MD [address] [place] [address] PCP - General Family Medicine 11/23/20 documented as of this encounter
--- OUTSIDE RECORDS SUMMARY | 2024-07-03 12:36 | External Medical Summary ---
Author Name Unknown Address Unknown Organization K0G:LABORATORY [facility] - [address] [place] [address] Laboratory Report Ordering Provider Test Date Status DMITRY LAZARO 03/07/2024 16:15:24 Final Observation Date Value Abnormality Reference (Units ) Status WBC, Total 03/07/2024 16:15:24 11.55 Above high normal 4 .00-10.80 (K/uL) Final RBC 03/07/2024 16:15:24 3.98 3.85-5.15 (M/uL) Final Hemoglobin 03/07/2024 16:15:24 11.5 Below low normal 12 .0-15.3 (g/dL) Final Anemia reflex testing trigge rs on a HGB < 12.0 for Females and HGB < 13.0 for Males in accordance with the WHO Anemia Guidelines
Anemia reflex testing triggers on a HGB < 12.0 for Females and HGB < 13.0 for Males in accordance with the WHO Anemia Guidelines HCT 03/07/2024 16:15:24 34.5 Below low normal 36. 0-45.2 (%) Final MCV 03/07/2024 16:15:24 86.7 81.5-97.5 (fL) Final MCH 03/07/2024 16:15:24 28.9 27.0-34.0 (pg) Final MCHC 03/07/2024 16:15:24 33.3 32.0-36.0 (g/dL) Final RDW 03/07/2024 16:15:24 13.9 11.5-15.5 (%) Final Platelets 03/07/2024 16:15:24 276 140-400 (K /uL) Final MPV 03/07/2024 16:15:24 9.5 6.6-11.1 ( fL) Final Performing Location LABORATORY [facility] - [address] [place] [address]
--- OUTSIDE RECORDS SUMMARY | 2024-07-03 12:36 | External Medical Summary ---
Author Name Unknown Address Unknown Organization K01:LABORATORY C - [address] [place] [address] Laboratory Report Ordering Provider Test Date Status DMITRY LAZARO 03/07/2024 16:15:24 Final Observation Date Value Abnormality Reference (Units ) Status Rubella virus IgG Ab [Presence] in Serum 03/07/2024 16:15:24 Positive Abnormal Negative Final A positive result is consist ent with having had rubella virus or vaccination. Performing Location [place] [facility] [place] [address] [place] [address]
--- OUTSIDE RECORDS SUMMARY | 2024-07-03 12:36 | External Medical Summary ---
Author Name Unknown Address Unknown Organization K01:LABORATORY [place] [address] [facility] [address] Laboratory Report Ordering Provider Test Date Status DMITRY LAZARO 03/07/2024 16:15:24 Final Observation Date Value Abnormality Reference (Units ) Status HIV 1+2 Ab+HIV1 p24 Ag [Presence] in Serum or Plasma by Immunoassay 03/07/2024 16:15:24 Negative Negative Final Negative HIV-1/2 antigen and antibody screening tset results usually indicate the absence of HIV-1 and HIV-2 infection. However, such negative results do not rule-out acute HIV infection. If acute HIV-1 infection is highly suspected, it is recommended that a specimen be submitted for detection of HIV-1 RNA. Performing [place] [facility] [facility] [place] [facility] [address] [facility] [address]
--- OUTSIDE RECORDS SUMMARY | 2024-07-03 12:36 | External Medical Summary ---
Author Name Unknown Address Unknown Organization K01:[place]ORY [facility] [place] [facility] [place] [address] Laboratory Report Ordering Provider Test Date Status DMITRY LAZARO 03/07/2024 16:15:24 Final Observation Date Value Abnormality Reference (Units ) Status Retic, % (auto) 03/07/2024 16:15:24 2.06 Above high normal 0.80-1.90 (%) Final Reticulocytes, Absolute 03/07/2024 16:15:24 82.2 31.3-100.1 (K/uL) Final Reticulocyte fraction, immature 03/07/2024 16:15:24 17.5 2.5-20.6 (%) Final Reticulocyte HGB 03/07/2024 16:15:24 31.2 29.7-37.4 (pg) Final Performing Location LABORATORY [facility] [place] [address] [place] [address]
--- OUTSIDE RECORDS SUMMARY | 2024-07-03 12:37 | External Medical Summary | Summary of Care ---
Author Name Unknown Organization [facility] Address [address] [facility] [place] [address] Phone [phone] Care Team Providers Care Spray Drier Operator Name Role Phone Lo Moreno MD Primary Care Provid er Reason for Visit * Reason Onset Date Comments No Show 01/13/2024 [facility] No Show Auto mation Encounter Details Date Type Department Care Team ([facility] Contact Info) Description 01/13/2024 Telephone [facility] [address] [place] [address] Lo Moreno MD [address] [place] [address] No Show ([place] No Show Automation) Allergies No known active allergiesdocumented as of this encounter (statuses as of 01/13/2024) Medications Medication Sig Dispensed Refills Start Date End Date Status Blood Pressure Monitoring (MICROLIFE BPM2 BP MONITOR) [...] HFA 108 (90 Base) MCG/ACT Inhalation Aerosol SolutionIndications: Acute non-recurrent maxillary sinusitis Inhale 2 Puffs by mouth every 4 hours as needed for Wheezing. 18 g 3 08/15/2023 Active FLUoxetine HCl 10 MG Oral Capsule (PROzac)Indications: Moderate episode of recurrent major depressive disorder (HCC),IRAJ (generalized anxiety disorder) Take 1 Capsule by mouth in the morning. 30 Capsule 6 11/24/2023 Active documented as of this encounter (statuses as of 01/13/2024) Active Problems Problem Noted Date Diagnosed Date Suicidal thoughts 04/15/2022 Moderate episode of recurrent major depressive d isorder 07/05/2021 IRAJ (generalized anxiety disorder) 07/05/2021 Hypertension goal BP (blood pressure) < 140/90 0 11/23/2020 Hypertensive left ventricula r hypertrophy, without heart failure 11/23/2020 BMI 45.0-49.9, adult 09/15/2020 Overview: Per Obesity protocol Morbid obesity due to excess calories 08/07/2006 Overview: Per Obesity Taxonomy documented as of this encounter (statuses as of 01/13/2024) Resolved Problems Problem Noted Date Diagnosed Date Resolved Date Recurrent major depressive d isorder, in full remission 11/23/2020 07/05/2021 Abnormal weight gain 2010 018 Asthma with severity to be determined 09/24/2009 04/23/2015 Overview: Per Asthma Taxonomy ICD-10 update of inactive term Body mass index (BMI) of 120 % to less than 140% of 95th percentile for age in pediatric patient 06/25/2009 07/05/2021 Overview: Per Obesity Taxonomy ICD-10 update of inactive term Asthma, allergic 04/16/2009 09/24/2009 documented as of this encounter (statuses as of 01/13/2024) Immunizations Name Administration Dates Next Due DTaP [...] money to get more. Never true 07/15/2022 Utilities Answer Date Recorded Do you have trouble paying y our heating, water, or electric bill? (Adult - for ages 18 years and over) Not on file 09/19/2023 Is your family able to pay t he heat, water, or electric bill? (Household - for ages 0-17 years) Not on file 09/19/2023 Does your family have access to good internet? (Household - for ages 0-17 years) Not on file 09/19/2023 Social Connections Answer Date Recorded How often do you feel lonely or isolated from those around you? (Adult - for ages 18 years and over) Not on file 09/19/2023 Sex and Gender Information Value Date Recorded Sex Assigned at Female 07/15/2022 3:03 PM EDT Gender Identity Female 07/15/2022 3:03 PM EDT Sexual Orientation Bisexual 07/15/2022 3: 03 PM EDT Job Start Date Occupation Industry Not on file Not on file Not on file documented as of this encounter Miscellaneous Notes * Telephone Encounter - Randal, No Show - 01/13/2024 9:58 AM EDT Dear Gerard Dunbar, Looks like you missed an appointment with LO MORENO on 01/02/2024 at 01:40 PM. If you haven't already rescheduled, you have a couple of options: Reschedule in [email or web address] Call us at [phone] Can't make a future appointment? Cancel and let someone else have your spot! It's easy to do via [employer] or by calling us. [facility]. We hope to see you back in our office soon. Sincerely, LO MORENO documented in this encounter Plan of Treatment Upcoming Encounters Date Type Department Care Team (Late st Contact Info) Description 05/06/2024 9:40 AM EST Office Visit [place] [address] [facility] [phone] Lo Moreno MD [address] [facility] [address] 08/19/2024 6:00 PM EDT Office Visit [place] [address] [facility] [phone] Lo Moreno MD [address] [facility] [address] Health Maintenance Due Date Last Done Comments [...] this encounter Medical Devices Implanted Type Area Form Press Operator Device Identifier Shelf Expiration Date Model / Serial / Lot Btb Tightrope - [id number] Implanted:Qty: 1 on 11/12/2019 by Christopher Brennan DO at OR [facility] Right: Knee [employer] 01/01/2024 AR-1588BTB / / [id number] Tightrope Abs Implant, Open - [id number] Implanted:Qty: 1 on 11/12/2019 by Christopher Brennan DO at OR [facility] Right: Knee [employer] 01/01/2024 AR-1588TN-1 / / [id number] 7.5-10.5mm Graftlink Allograft, Frozen Graft Implanted:Qty: 1 on 11/12/2019 by Christopher Brennan DO at OR [facility] Right: Knee [employer] [id number] 09/01/2022 [facility] / [id number] 2 / LOT NA Tightrope Abs Button Rnd 11mm - [id number] Implanted:Qty: 1 on 11/12/2019 by Christopher Brennan DO at OR [facility] Right: Knee [employer] 08/31/2024 AR-1588TB-3 / / [id number] documented as of this encounter Care Teams Spray Drier Operator Relationship Specialty Start Date End Date Lo Moreno MD [address] [place] [facility] [place] [address] PCP - General Family Medicine 11/23/20 documented as of this encounter
--- OUTSIDE RECORDS SUMMARY | 2024-07-03 12:37 | External Medical Summary | Summary of Care ---
Author Name Unknown Organization [facility] Address [address] [place] [address] Phone [phone] Care Team Providers Care Front End Architect Name Role Phone Carly Gatica MD Primary Care Provid er Reason for Visit * Reason Onset Date Comments Order Request 02/02/2024 Dating us Encounter Details Date Type Department Care Team ([facility] Contact Info) Description 02/02/2024 Telephone Gynecology/Obstetrics [facility] [address] [place] [address] Backer, KENNETH De La Cruz [address] [facility] [place] [address] Order Request (Dating us ) Allergies No known active allergiesdocumented as of this encounter (statuses as of 02/07/2024) Medications Medication Sig Dispensed Refills Start Date [...] as of this encounter (statuses as of 02/07/2024) Active Problems Problem Noted Date Diagnosed Date [...] as of this encounter (statuses as of 02/07/2024) Resolved Problems Problem Noted Date Diagnosed Date [...] as of this encounter (statuses as of 02/07/2024) Immunizations Name Administration Dates Next Due DTaP [...] Telephone Encounter - Abby Rabago OSA - 02/02/2024 1:44 PM EDT Dating US scheduled prior to NOB; Please place order and send back to me documented in this encounter Plan of Treatment Upcoming Encounters Date Type Department Care Team (Late st Contact Info) Description 02/16/2024 1:00 PM EST Nurse Only Gynecology/Obstetrics [facility] [address] [facility] [place] [address] Gw, Nurse Tube Builder [facility] [address] [place] [address] 03/05/2024 8:45 AM EST Imaging Radiology [facility] [address] [place] [address] 03/05/2024 9:30 AM EST Office Visit Gynecology/Obstetrics [facility] [address] [place] [address] Backer, KENNETH De La Cruz [address] [place] [address] 05/06/2024 9:40 AM EST [facility] [address] [place] [address] Carly [facility]atica [facility] [address] [facility] [address] 08/19/2024 6:00 PM EDT Office Visit [facility] [address] [facility] [place] [address] Carly Gatica MD [address] [facility] [place] [address] Scheduled Orders Name Type Priority Associated Diagnoses Orde r Schedule US PELVIS TRANS-VAGINAL OB Medical Imaging Routine at early stage Expected: 03/06/2024 (Approximate), Expires: 03/06/2025 Health Maintenance Due Date Last Done Comments [...] this encounter Medical Devices Implanted Type Area Manager Of Production Device Identifier Shelf Expiration Date Model / Serial / Lot Btb Tightrope - [id number] Implanted:Qty: 1 on 11/12/2019 by Christopher Brennan, DO at OR [facility] Right: Knee [employer] 01/01/2024 AR-1588BTB / / [id number] Tightrope Abs Implant, Open - [id number] Implanted:Qty: 1 on 11/12/2019 by Christopher Brennan DO at OR [facility] Right: Knee [employer] 01/01/2024 AR-1588TN-1 / / [id number] 7.5-10.5mm Graftlink Allograft, Frozen Graft Implanted:Qty: 1 on 11/12/2019 by Christopher Brennan DO at OR [facility] Right: Knee [employer] [id number] 09/01/2022 [facility] / [id number] / LOT NA Tightrope Abs Button Rnd 11mm - [id number] Implanted:Qty: 1 on 11/12/2019 by Christopher Brennan DO at OR [facility] Right: Knee [employer] 08/31/2024 AR-1588TB-3 / / [id number] documented as of this encounter Visit Diagnoses Diagnosis at early stage- Primary documented in this encounter Care Teams Front End Architect Relationship Specialty Start Date End Date Carly Gatica MD [address] [place] [address] PCP - General Family Medicine 11/23/20 documented as of this encounter
--- OUTSIDE RECORDS SUMMARY | 2024-07-03 12:37 | External Medical Summary | Summary of Care ---
Author Name Unknown Organization [facility] Address [address] [facility] [place] [address] Phone [phone] Care Team Providers Care Quality Assurance Monitor Body Name Role Phone Carly Gatica MD Primary Care Provid er Encounter Details Date Type Department Care Team ([facility] Contact Info) Description 02/16/2024 Telephone Gynecology/Obstetrics [facility] [address] [place] [address] BackerFiath CRNP [address] [place] [address] Allergies No known active allergiesdocumented as of this encounter (statuses as of 02/16/2024) Medications Blood Pressure Monitoring (MICROLIFE BPM2 BP [...] as of this encounter (statuses as of 02/16/2024) Active Problems Problem Noted Date Diagnosed Date [...] as of this encounter (statuses as of 02/16/2024) Resolved Problems Problem Noted Date Diagnosed Date [...] as of this encounter (statuses as of 02/16/2024) Immunizations Name Administration Dates Next Due DTaP [...] money to buy more. Never true 07/16/19 Within the past 12 months, t he [...] encounter Miscellaneous Notes * Telephone Encounter - Fanny Castillo LPN - 02/16/2024 3:20 PM EST Called pt again unable to hear pt and hung up phone. Pt called back still hard to hear pt I instructed pt to call back on Monday to reschedule Nurse intake when she is not working. Pt said she will call next week when she gets her schedule to reschedule appt. * Telephone Encounter - Fanny Castillo LPN - 02/16/2024 2:15 PM EST Called pt x 4 unable to hear pt due to background noise and pt being at work. Pt asked if I could call her back in 30 mins to do intake. I told pt I will call her back but if unable to hear we wont be doing the intake and she can reschedule this when she is not working. documented in this encounter Plan of Treatment Upcoming Encounters Date Type Department Care Team (Late st Contact Info) Description 03/05/2024 8:45 AM EST Imaging Radiology [facility] [address] [facility] [place] [address] 03/05/2024 9:30 AM EST Office Visit Gynecology/Obstetrics [facility] [address] [facility] [place] [address] BackerFaith CRNP [address] [facility] [place] [address] 05/06/2024 9:40 AM EST [facility] [place] [address] Carly Gatica MD [address] [facility] [address] 08/19/2024 6:00 PM EDT [facility] [place] [address] Carly Gatica MD [address] [facility] [address] Health Maintenance Due Date Last Done Comments [...] this encounter Medical Devices Implanted Type Area Overhauler Device Identifier Shelf Expiration Date Model / Serial / Lot Btb Tightrope - [id number] Implanted:Qty: 1 on 11/12/2019 by Christopher Brennan DO at OR [facility] Right: Knee [employer] 01/01/2024 AR-1588BTB / / [id number] Tightrope Abs Implant, Open - [id number] Implanted:Qty: 1 on 11/12/2019 by Christopher Brennan DO at OR [facility] Right: Knee [employer] 01/01/2024 AR-1588TN-1 / / [id number] 7.5-10.5mm Graftlink Allograft, Frozen Graft Implanted:Qty: 1 on 11/12/2019 by Christopher Brennan DO at OR [facility] Right: Knee [employer] [id number] 09/01/2022 [facility] / [id number] / LOT NA Tightrope Abs Button Rnd 11mm - [id number] Implanted:Qty: 1 on 11/12/2019 by Christopher Brennan DO at OR [facility] Right: Knee [employer] 08/31/2024 [id number]-3 / / [id number] documented as of this encounter Care Teams Quality Assurance Monitor Body Relationship Specialty Start Date End Date Carly Gatica MD [address] [place] [address] PCP - General Family Medicine 11/23/20 documented as of this encounter
[2024-07-03] MEDS: SIMETHICONE 80 MG CHEW PO SCH (12:57)
--- NOTE | 2024-07-03 14:32 | Anesthesiology Progress Note ---
Date of Service July 03, 2024 Anesthesia Post Procedure Vital Signs Vital Signs: Temp Pulse Pulse Resp BP BP Pulse Ox 07/03/24 13:45 36.8 C 63 18 122/80 100 07/03/24 12:45 36.6 C 72 16 120/71 99 07/03/24 11:34 62 127/56 L 07/03/24 11:32 71 100 07/03/24 11:30 36.7 C 20 07/03/24 11:27 65 98 07/03/24 11:22 69 100 07/03/24 11:17 64 137/80 100 07/03/24 11:12 57 L 100 07/03/24 11:07 61 134/76 100 07/03/24 11:02 65 100 07/03/24 10:57 67 117/56 L 100 07/03/24 10:52 69 100 07/03/24 10:47 59 L 122/58 L 100 07/03/24 10:46 20 07/03/24 10:42 57 L 100 07/03/24 10:37 62 116/63 99 07/03/24 10:32 63 98 07/03/24 10:27 60 114/60 97 07/03/24 10:22 60 97 07/03/24 10:17 97 07/03/24 10:17 61 07/03/24 10:17 73 102/50 L 07/03/24 10:15 36.5 C 20 07/03/24 10:12 67 97 07/03/24 10:07 97 07/03/24 10:07 71 07/03/24 10:07 64 105/50 L 07/03/24 10:05 16 07/03/24 10:02 69 97 07/03/24 10:01 61 102/53 L 07/03/24 09:57 67 97 07/03/24 09:55 20 07/03/24 09:52 64 97 07/03/24 09:50 65 113/57 L 07/03/24 09:47 68 97 07/03/24 09:45 20 07/03/24 09:42 72 96 07/03/24 09:40 83 123/79 07/03/24 09:37 83 97 07/03/24 09:35 18 07/03/24 09:32 74 96 07/03/24 09:27 92 07/03/24 09:27 80 07/03/24 09:27 78 75 L 07/03/24 09:25 20 07/03/24 09:22 80 100 07/03/24 09:17 36.5 C 0 L 07/03/24 09:17 78 125/80 100 07/03/24 07:10 37 C 20 07/03/24 07:04 78 129/64 07/03/24 06:51 93 H 136/85 07/03/24 06:29 37.0 C 20 O2 Del Method 07/03/24 13:45 Room Air 07/03/24 12:45 Room Air 07/03/24 11:34 07/03/24 11:32 07/03/24 11:30 07/03/24 11:27 07/03/24 11:22 07/03/24 11:17 07/03/24 11:12 07/03/24 11:07 07/03/24 11:02 07/03/24 10:57 07/03/24 10:52 07/03/24 10:47 07/03/24 10:46 07/03/24 10:42 07/03/24 10:37 07/03/24 10:32 07/03/24 10:27 07/03/24 10:22 07/03/24 10:17 07/03/24 10:17 07/03/24 10:17 07/03/24 10:15 07/03/24 10:12 07/03/24 10:07 07/03/24 10:07 07/03/24 10:07 07/03/24 10:05 07/03/24 10:02 07/03/24 10:01 07/03/24 09:57 07/03/24 09:55 07/03/24 09:52 07/03/24 09:50 07/03/24 09:47 07/03/24 09:45 07/03/24 09:42 07/03/24 09:40 07/03/24 09:37 07/03/24 09:35 07/03/24 09:32 07/03/24 09:27 07/03/24 09:27 07/03/24 09:27 07/03/24 09:25 07/03/24 09:22 07/03/24 09:17 07/03/24 09:17 07/03/24 07:10 07/03/24 07:04 07/03/24 06:51 07/03/24 06:29 Pain Intensity Abdomen: Pain Intensity: 3 Transfer of Care Handoff Completed per policy Notes Mental Status: alert / awake / arousable Nausea / Vomiting: adequately controlled Pain: adequately controlled Airway Patency, RR, SpO2: stable & adequate BP & HR: stable & adequate Hydration State: stable & adequate Neuraxial Anesthesia: was administered and sensory block is resolving Anesthetic Complications: no major complications apparent and Pt Satisfied with anesthetic care
[2024-07-03] MEDS: ACETAMINOPHEN 325 MG TAB PO SCH (16:16)
[2024-07-03] MEDS: OXYTOCIN 20 UNITS/LR 1,002 ML IV SCH (16:39)
[2024-07-03] MEDS: ceFAZolin 2000MG 2,000 MG/15 ML SYR IV ONE (16:58)
[2024-07-03] MEDS: DOCUSATE SODIUM 100 MG CAP PO SCH (20:34)
[2024-07-04] MEDS: diphenhydrAMINE 50 MG/ML VIAL IV PRN (01:13)
[2024-07-04] MEDS ORDERED: diphenhydrAMINE Capsule 25 MG CAP PO PRN (01:52)
[2024-07-04] MEDS ORDERED: ONDANSETRON INJ 2 MG/ML 2 ML VIAL IV PRN (01:52)
[2024-07-04] MEDS ORDERED: HYDROmorphone INJ 0.5 MG/0.5 ML SYR IV PRN (01:52)
[2024-07-04 06:32] LABS: Basophils # (auto) 0.06 K/uL (0.00-0.20); Basophils % (auto) 0.4 %; Eosinophils # (auto) 0.26 K/uL (0.00-0.50); Eosinophils % (auto) 1.8 %; Hematocrit (blood only) 34.6 % (37.0-47.0); Hemoglobin 11.6 g/dl (12.0-16.0); Immature Granulocytes # (auto) 0.07 K/uL (0.01-0.20); Immature Granulocytes % (auto) 0.5 %; Lymphocytes # (auto) 3.42 K/uL (1.20-3.40); Lymphocytes % (auto) 23.4 %; Mean Corpuscular Hgb Conc 33.5 g/dL (32.0-36.0); Mean Corpuscular Volume 86.5 fL (80.0-100.0); Monocytes # (auto) 1.87 K/uL (0.11-0.59); Monocytes % (auto) 12.8 %; Neutrophils # (auto) 8.96 K/uL (1.40-6.50); Neutrophils % (auto) 61.1 %; Platelet Count 200 K/uL (130-400); RDW Coefficient of Variation 13.6 % (11.5-14.5); RDW Standard Deviation 43.4 fL (36.4-46.3); White Blood Count 14.64 K/ul (4.8-10.8)
[2024-07-04] MEDS: PRENATAL VITAMIN 1 TAB PO SCH (09:01)
[2024-07-04] MEDS: FERROUS SULFATE 325 MG TAB PO SCH (09:01)
[2024-07-04] MEDS ORDERED: KETOROLAC 30 MG/ML VIAL IV PRN (09:11)
--- NOTE | 2024-07-04 09:29 | Obstetrical Progress Note ---
Date of Service July 04, 2024 Assessment & Plan Admission and Anticipated Discharge Date Admission Date: July 03, 2024 Subjective Patient is seen and examined. She feels well, no complaints. Pain is under control with oral meds. Ambulating without dizziness. Voiding without difficulty Tolerating regular diet with out N&V Flatus + BM none Bleeding is minimal No fever/ chills/ CP/ SOB/ N&V/ Leg pain Bottle feeding without problems, pumping breast milk and using formula Vital Signs Temp Pulse Resp BP Pulse Ox O2 Del Method 07/04/24 07:40 36.8 C 62 16 122/76 98 Room Air 07/04/24 03:55 36.8 C 61 18 125/81 100 Room Air 07/04/24 01:17 20 97 07/04/24 00:30 20 97 07/04/24 00:10 36.7 C 64 18 98/60 L 97 Room Air 07/03/24 23:50 16 98 07/03/24 22:08 18 97 07/03/24 21:30 18 97 Lab Results 07/03/24 07/03/24 07/04/24 Range/Units 06:47 Unknown 05:47 WBC 12.81 H 14.64 H (4.8-10.8) K/ul RBC 4.19 L 4.00 L (4.20-5.40) M/uL Hgb 12.3 11.6 L (12.0-16.0) g/dl Hct 35.6 L 34.6 L (37.0-47.0) % MCV 85.0 86.5 (80.0-100.0) fL MCH 29.4 29.0 (25.0-34.0) pg MCHC 34.6 33.5 (32.0-36.0) g/dL RDW Std Deviation 42.4 43.4 (36.4-46.3) fL RDW Coeff of Moustapha 13.5 13.6 (11.5-14.5) % Plt Count 219 200 (130-400) K/uL MPV 9.9 10.0 (9.4-12.4) fL Immature Gran % (Auto) 0.5 % Neut % (Auto) 61.1 % Lymph % (Auto) 23.4 % [place] % (Auto) 12.8 % Eos % (Auto) 1.8 % Baso % (Auto) 0.4 % Neut # (Auto) 8.96 H (1.40-6.50) K/uL Lymph # (Auto) 3.42 H (1.20-3.40) K/uL [place] # (Auto) 1.87 H (0.11-0.59) K/uL Eos # (Auto) 0.26 (0.00-0.50) K/uL Baso # (Auto) 0.06 (0.00-0.20) K/uL Immature Gran # (Auto) 0.07 (0.01-0.20) K/uL Urine Opiates Screen Neg (Neg) Ur Methadone, Qual Neg (Neg) Urine Fentanyl Screen Neg (Neg) Urine Barbiturates Neg (Neg) Ur Phencyclidine (PCP) Neg (Neg) U Amphetamin/Meth Scrn Neg (Neg) MDMA (Ecstasy) Screen Neg (Neg) U Benzodiazepines Scrn Neg (Neg) Ur Cocaine Metabolite Neg (Neg) U Marijuana (THC) Screen Neg (Neg) Treponema pallidum Ab Negative (Negative) Blood Type O Positive Antibody Screen NEGATIVE PE: General: Alert, orientedx3, NAD CVS: S1S2 RRR Lungs; CTAB Abd: soft, NT, ND, BS+, fundus firm, below Umbilicus Incision/LARRY dressing: Clean, dry, intact Perineum intact, Lochia rubra minimal Ext; NT, no edema AP: 23 yo s/p C Section, pod# 1 VSS Afebrile doing well H&H stable Continue routine postop care Encourage ambulation, PO intake All questions were answered Results & Data Vital Signs (Past 12 Hours) Vital Signs Temp Pulse Resp BP Pulse Ox O2 Del Method 07/04/24 07:40 36.8 C 62 16 122/76 98 Room Air 07/04/24 03:55 36.8 C 61 18 125/81 100 Room Air 07/04/24 01:17 20 97 07/04/24 00:30 20 97 07/04/24 00:10 36.7 C 64 18 98/60 L 97 Room Air 07/03/24 23:50 16 98 07/03/24 22:08 18 97 07/03/24 21:30 18 97
[2024-07-04] MEDS: IBUPROFEN 600 MG TAB PO SCH (09:36)
[2024-07-04] MEDS: MAGNESIUM HYDROXIDE SUSP 30 ML UDC PO PRN (12:51)
[2024-07-04] MEDS: bisacodyL 5 MG TABEC PO SCH (17:36)
[2024-07-04] MEDS ORDERED: bisacodyL 10 MG SUPP PR ONE (17:37)
[2024-07-04] MEDS: bisacodyL 10 MG SUPP PR STA (17:39)
[2024-07-04] MEDS: oxyCODONE HCL IR 5 MG TAB (IMMEDIATE RELEASE) PO PRN (17:55)
[2024-07-05 06:15] LABS: Hematocrit (blood only) 29.9 % (37.0-47.0); Hemoglobin 10.2 g/dl (12.0-16.0)
[2024-07-05 07:48] VITALS: PULSE 89; RESP 20; TEMP 98.2; O2SAT 98
--- NOTE | 2024-07-05 08:46 | Obstetrical Progress Note ---
Date of Service July 05, 2024 Assessment & Plan Admission and Anticipated Discharge Date Admission Date: July 03, 2024 Subjective Patient is seen and examined. She feels well, no complaints. Pain is under control with oral meds. Ambulating without dizziness Voiding without difficulty Tolerating regular diet with out N&V Flatus + BM + Bleeding is minimal No fever/ chills/ CP/ SOB/ N&V/ Leg pain Breast/ pumping feeding without problems Vital Signs Temp Pulse Resp BP Pulse Ox O2 Del Method 07/05/24 07:45 36.8 C 89 20 153/95 H 98 Room Air 07/04/24 23:30 36.7 C 88 18 129/74 97 Room Air Vital Signs Temp Pulse Resp BP Pulse Ox O2 Del Method 07/05/24 07:45 36.8 C 89 20 153/95 H 98 Room Air 07/04/24 23:30 36.7 C 88 18 129/74 97 Room Air 07/04/24 19:45 36.8 C 94 H 18 127/81 96 Room Air 07/04/24 15:10 36.8 C 90 18 145/79 H 98 Room Air 07/04/24 12:45 36.8 C 77 18 135/80 98 Room Air PE: General: Alert, orientedx3, NAD CVS: S1S2 RRR Lungs; CTAB Abd: soft, NT, ND, BS+, fundus firm, below Umbilicus Incision/ Dressing: Clean, dry, intact Perineum intact, Lochia rubra minimal Ext; NT, no edema AP: 23 yo s/p C Section, pod# 2 VSS Afebrile doing well Continue routine postop care Encourage ambulation, PO intake Desires d/c this afternoon All questions were answered D/C home , f/u in office Results & Data Vital Signs (Past 12 Hours) Vital Signs Temp Pulse Resp BP Pulse Ox O2 Del Method 07/05/24 07:45 36.8 C 89 20 153/95 H 98 Room Air 07/04/24 23:30 36.7 C 88 18 129/74 97 Room Air
[2024-07-05] MEDS ORDERED: bisacodyL 10 MG SUPP PR PRN (09:11)
[2024-07-05 09:33] VITALS: BP 132/83
[2024-07-05] MEDS: IBUPROFEN 600 MG TAB PO PRN (09:34)
[2024-07-05 09:37] LABS: Basophils # (auto) 0.07 K/uL (0.00-0.20); Basophils % (auto) 0.5 %; Eosinophils # (auto) 0.29 K/uL (0.00-0.50); Hematocrit (blood only) 31.8 % (37.0-47.0); Hemoglobin 10.8 g/dl (12.0-16.0); Immature Granulocytes # (auto) 0.12 K/uL (0.01-0.20); Immature Granulocytes % (auto) 0.8 %; Lymphocytes # (auto) 2.57 K/uL (1.20-3.40); Lymphocytes % (auto) 17.8 %; Mean Corpuscular Hemoglobin 29.2 pg (25.0-34.0); Mean Corpuscular Volume 85.9 fL (80.0-100.0); Mean Platelet Volume 10.2 fL (9.4-12.4); Monocytes # (auto) 1.85 K/uL (0.11-0.59); Monocytes % (auto) 12.8 %; Neutrophils # (auto) 9.57 K/uL (1.40-6.50); Neutrophils % (auto) 66.1 %; Platelet Count 197 K/uL (130-400); RDW Coefficient of Variation 13.6 % (11.5-14.5); RDW Standard Deviation 43.1 fL (36.4-46.3); White Blood Count 14.47 K/ul (4.8-10.8)
[2024-07-05 09:42] LABS: Albumin Globulin Ratio 1.1 (0.9-2); Albumin Level 3.2 gm/dl (3.4-5.0); BUN Creatinine Ratio 14.6 (10-20); Bilirubin,Total 0.7 mg/dl (0.2-1.0); Creatinine Clr Calc Pharmacy 156.1 ml/min; Globulin 2.9 gm/dl (2.5-4.0); Potassium 4.5 mmol/L (3.5-5.1); Total Protein 6.1 gm/dl (6.0-8.3)
[2024-07-05] MEDS ORDERED: ACETAMINOPHEN 325 MG TAB PO PRN (15:11)
== END 2024-07-05 15:40 | disposition home health service (06) | DRG 788 ==
LOC: 4S1 06:13 → EDSTATUS 08:00 → 4E2 12:02